=== PATIENT | female | born 1950 | race Caucasian/White ===

== ENCOUNTER → 2017-11-07 11:56 | Outpatient (CLI) | payer MEDICARE, SELFPAY ==
[2017-11-07 12:35] LABS: Absolute Lymphocyte Count 2.17 X10^3/ul (0.83-4.51); Absolute Neutrophil Count 4.1 X10^3/uL (2.0-7.7); Basophil# 0.02 X10^3/uL; Basophil% 0.3 % (0-1); Eosinophil# 0.14 X10^3/uL; Hematocrit 39.7 % (37-47); Hemoglobin 13.1 g/dl (12.0-15.0); Lymphocyte # 2.17 X10^3/ul (4.0); Lymphocyte % 31.1 % (19-41); Mean Corpuscular Hgb 31.3 pg (27.0-32.0); Mean Corpuscular Volume 94.7 fL (81-99); Mean Platelet Vol. 10.3 fl (6.2-12.0); Monocyte# 0.59 X10^3/uL; Monocyte% 8.5 % (0-10); Neutrophil # 4.05 X10^3/uL (2.7-7.7); Neutrophil % 58.1 % (47-70); Platelet Count 293 K/mm3 (150-450); RBC Distribution Width CV 13.8 % (11.6-14.6); RBC Distribution Width SD 46.1 fl (35.1-43.9); Red Blood Count 4.19 M/mm3 (4.2-5.4)
[2017-11-07 12:37] LABS: POSITIVE COUNT NO; POSITIVE DIFFERENTIAL NO; POSITIVE MORPHOLOGY NO
[2017-11-07 13:03] LABS: ALB/GLOB Ratio 1.1 RATIO (0.9-2.4); AST(SGOT) 26 U/L (15-37); Alanine Aminotransfer ALT/SGPT 32 U/L (13-56); Albumin, Serum 3.8 g/dL (3.2-5.0); Alkaline Phosphatase 87 U/L (45-117); Anion Gap 8 (5-15); BUN 17 mg/dL (7-18); BUN/Creat Ratio 22.3 RATIO (10-20); Chloride 106 mmol/L (98-107); Creatinine, Serum 0.76 mg/dL (0.55-1.02); EST Glomerular Filtration Rate 80 mL/min (>60); Est Glom Filt Rate - Afr Amer 97 mL/min (>60); Globulin 3.6 g/dL (2.2-4.2); Glucose 83 mg/dL (74-106); Potassium 4.2 mmol/L (3.5-5.1); Protein, Total 7.4 g/dL (6.4-8.2); Sodium Level 139 mmol/L (136-145)
[2017-11-07 13:10] LABS: Vitamin D,25 Hydroxy 65.2 ng/mL (29.95-100.01)
[2017-11-08 09:37] LABS: Hep C Antibodies <0.1 s/co ratio (0.0-0.9)
[2017-11-08 10:55] LABS: T3 Uptake 37 % (30-39); T4 Free Direct 1.23 ng/dL (0.76-1.46)
== END ==
PROVIDERS: Family Provider Family Medicine Geriatric Medicine; PCP Family Medicine Geriatric Medicine; Visit Provider Family Medicine Geriatric Medicine
DX: E03.9 Hypothyroidism, unspecified (principal); E55.9 Vitamin D deficiency, unspecified; N39.0 Urinary tract infection, site not specified; R53.83 Other fatigue; Z13.89 Encounter for screening for other disorder
CPT/HCPCS: 36415; 80053; 82306; 84439; 84443; 84479; 85025; 86803; 87086; 87088

== ENCOUNTER → 2017-12-28 10:36 | Outpatient (CLI) | payer MEDICARE, SELFPAY ==
--- NOTE | 2017-12-28 10:38 | BD_ITS ---
STUDY: DUAL ENERGY X-RAY ABSORPTIOMETRY / DXA REASON FOR EXAM: Female, 67 years old. The patient is postmenopausal. Loss of height. TECHNIQUE: Bone Mineral Density (BMD) measurements of lumbar spine and bilateral hips were obtained. COMPARISON: Comparison is made with prior study dated November 04, 2015. FINDINGS: Lumbar Spine (L1-L4): g/cm2 (0.898) / T-score (-2.2) / Z-score (-0.6) Findings are suggestive of osteopenia with a moderate fracture risk. Left Femur Total: g/cm2 (0.724) / T-score (-2.3) / Z-score (-0.8) Left Femoral Neck: g/cm2 (0.721) / T-score (-2.3) / Z-score (-0.6) Right Femur Total: g/cm2 (0.720) / T-score (-2.3) / Z-score (-0.9) Right Femoral Neck: g/cm2 (0.733) / T-score (-2.2) / Z-score (-0.5) The T-Scores on the most recent prior examination were: Lumbar Spine (L1-L4): There has been worsening of bone density since the previous examination. Left Femur Total: which represents a worsening of 6.3%. Right Femur Total: which represents a worsening of 7.2%. BD/Dexa Bone Density Study IMPRESSION: The patient is considered osteopenic as outlined below according to World Prabh[employer]ot Organization (WHO) criteria with a moderate fracture risk. There has been worsening of bone density since the previous examination. Reference Information: The T-score is the number of standard deviations above or below the standard which is normal for young adults at their peak bone mineral density. The World Health Organization (WHO) interprets the T-scores as follows: Above -1 Normal bone density Between -1 and -2.5 Osteopenia Equal to / or below -2.5 Osteoporosis As a practical clinical guideline, osteopenia may be graded as follows: Mild -1 through -1.5 Moderate -1.6 through -2.0 Severe -2.1 through -2.4 The Z-score is the number of standard deviations above or below age-matched controls. A Z-score of less than -1.5 would be considered abnormal. References: 1. NIH Osteoporosis and Related Bone Diseases http://www.osteo.org 2. International Society for Clinical Densitometry http://www.iscd.org 3. National Osteoporosis Foundation http://www.nof.org Electronically Signed: Giovanni Cerda MD at 8:47 EDT Tel [phone], Service support ,
--- NOTE | 2017-12-28 10:38 | BI_ITS ---
MAMMOGRAPHY - BILATERAL SCREENING REASON FOR EXAM: Female, 67 years old. Routine annual screening examination. PERTINENT HISTORY: Personal history of breast cancer. Prior left lumpectomy and radiation treatment. Prior right breast reduction surgery. TECHNIQUE: Digital bilateral breast anaid (3D mammographic acquisition) in the CC and MLO projections. 2-D mediolateral oblique (MLO) and craniocaudad (CC) views of both breasts were obtained. CAD: Full Field Digital Mammography with Computer Added Detection was performed. COMPARISON: Comparison is made with prior study dated November 26, 2016 and November 04, 2015. FINDINGS: Breast Composition: There are scattered areas of fibroglandular density. There are no dominant masses or suspicious calcifications. Once again, the patient is status post lumpectomy in the upper lateral portion of the left breast with resultant postoperative scarring and deformity of the breast. This is unchanged. Stable densely calcified nodule in the upper lateral portion of the right breast. No other significant abnormalities are identified. There has been no significant change since the prior study. BI/SCREENING MAMM (CAD), BILAT IMPRESSION: Stable bilateral screening mammogram. Yearly follow-up mammogram recommended. (A) ASSESSMENT CATEGORY: BIRADS Category 2: Benign. A letter regarding these results will be sent to the patient by the facility within 30 days. Approximately 10% of breast cancers are not detected by mammography. A normal mammogram should not delay biopsy of a clinically suspicious abnormality. [id number] Electronically Signed: Giovanni Cerda MD at 12:40 EDT Tel [phone], Service support ,
== END ==
PROVIDERS: Family Provider Family Medicine Geriatric Medicine; PCP Family Medicine Geriatric Medicine; Visit Provider Family Medicine Geriatric Medicine
DX: Z12.31 Encounter for screening mammogram for malignant neoplasm of breast (principal); Z78.0 Asymptomatic menopausal state; M85.80 Other specified disorders of bone density and structure, unspecified site
CPT/HCPCS: 77063; 77067; 77080

== ENCOUNTER → 2018-05-03 10:58 | Outpatient (CLI) | payer MEDICARE, SELFPAY ==
[2018-05-03 12:34] LABS: Absolute Lymphocyte Count 2.41 X10^3/ul (0.83-4.51); Absolute Neutrophil Count 2.9 X10^3/uL (2.0-7.7); Basophil# 0.01 X10^3/uL; Basophil% 0.2 % (0-1); Eosinophil# 0.08 X10^3/uL; Eosinophils% 1.4 % (0-5); Hemoglobin 13.3 g/dl (12.0-15.0); Lymphocyte # 2.41 X10^3/ul (4.0); Lymphocyte % 41.1 % (19-41); Mean Corp Hgb Conc 33.3 g/gl (32-36); Mean Corpuscular Hgb 31.7 pg (27.0-32.0); Mean Corpuscular Volume 95.2 fL (81-99); Mean Platelet Vol. 10.5 fl (6.2-12.0); Monocyte# 0.47 X10^3/uL; Neutrophil # 2.89 X10^3/uL (2.7-7.7); Neutrophil % 49.3 % (47-70); Platelet Count 259 K/mm3 (150-450); RBC Distribution Width CV 13.3 % (11.6-14.6); RBC Distribution Width SD 44.5 fl (35.1-43.9); White Blood Count 5.9 K/mm3 (4.4-11.0)
[2018-05-03 12:35] LABS: POSITIVE COUNT NO; POSITIVE DIFFERENTIAL NO; POSITIVE MORPHOLOGY NO
[2018-05-03 12:53] LABS: Vitamin D,25 Hydroxy 64.1 ng/mL (29.95-100.01)
[2018-05-03 13:00] LABS: ALB/GLOB Ratio 1.2 RATIO (0.9-2.4); AST(SGOT) 19 U/L (15-37); Alanine Aminotransfer ALT/SGPT 28 U/L (13-56); Alkaline Phosphatase 71 U/L (45-117); Anion Gap 6 (5-15); BUN 18 mg/dL (7-18); BUN/Creat Ratio 23.8 RATIO (10-20); Calcium,Total 9.2 mg/dL (8.5-10.1); Chloride 103 mmol/L (98-107); Creatinine, Serum 0.76 mg/dL (0.55-1.02); EST Glomerular Filtration Rate 81 mL/min (>60); Est Glom Filt Rate - Afr Amer 97 mL/min (>60); Globulin 3.4 g/dL (2.2-4.2); Glucose 78 mg/dL (74-106); Potassium 4.1 mmol/L (3.5-5.1); Protein, Total 7.4 g/dL (6.4-8.2); Sodium Level 136 mmol/L (136-145); Thyroid Stim Hormone (TSH) 0.45 uIU/mL (0.358-3.74)
== END ==
PROVIDERS: Family Provider Family Medicine Geriatric Medicine; PCP Family Medicine Geriatric Medicine; Visit Provider Family Medicine Geriatric Medicine
DX: E55.9 Vitamin D deficiency, unspecified (principal); R53.83 Other fatigue
CPT/HCPCS: 36415; 80053; 82306; 84443; 85025

== ENCOUNTER → 2018-11-08 09:00 | Outpatient (CLI) | payer MEDICARE, SELFPAY ==
[2018-09-11 09:21] VITALS: BMI 21.7
[2018-11-08 12:26] LABS: Absolute Lymphocyte Count 2.26 X10^3/ul (0.83-4.51); Absolute Neutrophil Count 2.8 X10^3/uL (2.0-7.7); Basophil# 0.02 X10^3/uL; Basophil% 0.4 % (0-1); Eosinophil# 0.14 X10^3/uL; Eosinophils% 2.5 % (0-5); Hematocrit 39.5 % (37-47); Hemoglobin 13.1 g/dl (12.0-15.0); Lymphocyte # 2.26 X10^3/ul (4.0); Lymphocyte % 39.6 % (19-41); Mean Corp Hgb Conc 33.2 g/gl (32-36); Mean Corpuscular Hgb 31.2 pg (27.0-32.0); Monocyte# 0.49 X10^3/uL; Monocyte% 8.6 % (0-10); Neutrophil # 2.78 X10^3/uL (2.7-7.7); Neutrophil % 48.7 % (47-70); Platelet Count 274 K/mm3 (150-450); RBC Distribution Width CV 13.6 % (11.6-14.6); RBC Distribution Width SD 45.6 fl (35.1-43.9); White Blood Count 5.7 K/mm3 (4.4-11.0)
[2018-11-08 12:29] LABS: POSITIVE COUNT NO; POSITIVE DIFFERENTIAL NO; POSITIVE MORPHOLOGY NO
[2018-11-08 12:45] LABS: Vitamin D,25 Hydroxy 56.3 ng/mL (29.95-100.01)
[2018-11-08 12:49] LABS: ALB/GLOB Ratio 1.3 RATIO (0.9-2.4); AST(SGOT) 24 U/L (15-37); Alanine Aminotransfer ALT/SGPT 34 U/L (13-56); Albumin, Serum 4.1 g/dL (3.2-5.0); Alkaline Phosphatase 66 U/L (45-117); Anion Gap 3 (5-15); BUN 19 mg/dL (7-18); BUN/Creat Ratio 25.1 RATIO (10-20); Calcium,Total 9.1 mg/dL (8.5-10.1); Chloride 102 mmol/L (98-107); Creatinine, Serum 0.76 mg/dL (0.55-1.02); EST Glomerular Filtration Rate 80 mL/min (>60); Est Glom Filt Rate - Afr Amer 97 mL/min (>60); Globulin 3.2 g/dL (2.2-4.2); Glucose 84 mg/dL (74-106); Protein, Total 7.3 g/dL (6.4-8.2); Sodium Level 133 mmol/L (136-145); Thyroid Stim Hormone (TSH) 0.78 uIU/mL (0.358-3.74)
== END ==
PROVIDERS: Family Provider Family Medicine Geriatric Medicine; PCP Family Medicine Geriatric Medicine; Visit Provider Family Medicine Geriatric Medicine
DX: E55.9 Vitamin D deficiency, unspecified (principal); R53.83 Other fatigue
CPT/HCPCS: 36415; 80053; 82306; 84443; 85025

== ENCOUNTER → 2019-01-10 | Outpatient (CLI) | payer MEDICARE, SELFPAY ==
[2018-09-11 09:21] VITALS: BMI 21.7
--- NOTE | 2019-01-10 13:34 | BI_ITS ---
MAMMOGRAPHY - BILATERAL SCREENING REASON FOR EXAM: Female, 68 years old. Routine annual screening examination. PERTINENT HISTORY: Personal history of breast cancer. Prior left lumpectomy with radiation therapy. Right breast reduction surgery. TECHNIQUE: Digital bilateral breast eileen (3D mammographic acquisition) in the CC and MLO projections. 2-D mediolateral oblique (MLO) and craniocaudad (CC) views of both breasts were obtained. CAD: Full Field Digital Mammography with Computer Added Detection was performed. COMPARISON: Comparison is made with prior study dated 08/30/2017 and November 26, 2016. FINDINGS: Breast Composition: There are scattered areas of fibroglandular density. There are no dominant masses or suspicious calcifications. The patient is status post lumpectomy in the upper lateral portion of the left breast with resultant postoperative scarring and deformity of the left breast. Stable dense calcified nodules in both upper outer quadrants. No other significant abnormalities are identified. There has been no significant change since the prior study. BI/SCREEN MAMM (CAD) W/EILEEN BILAT IMPRESSION: Stable bilateral screening mammogram. Yearly follow-up mammogram recommended. (A) ASSESSMENT CATEGORY: BIRADS Category 2: Benign. A letter regarding these results will be sent to the patient by the facility within 30 days. Approximately 10% of breast cancers are not detected by mammography. A normal mammogram should not delay biopsy of a clinically suspicious abnormality. [id number] Electronically Signed: Giovanni Cerda, at 14:38 EDT , Service support ,
== END | disposition home or self-care (01) ==
PROVIDERS: Family Provider Family Medicine Geriatric Medicine; PCP Family Medicine Geriatric Medicine; Referring Provider Family Medicine Geriatric Medicine; Visit Provider Family Medicine Geriatric Medicine
DX: Z12.31 Encounter for screening mammogram for malignant neoplasm of breast (principal)
CPT/HCPCS: 77063; 77067

== ENCOUNTER → 2019-05-14 | Outpatient (CLI) | payer MEDICARE, SELFPAY ==
[2018-09-11 09:21] VITALS: BMI 21.7
[2019-05-14 12:25] LABS: Absolute Lymphocyte Count 1.86 X10^3/uL (0.83-4.51); Absolute Neutrophil Count 3.4 X10^3/uL (2.0-7.7); Basophil# 0.04 X10^3/uL; Basophil% 0.7 % (0-1); Eosinophil# 0.13 X10^3/uL; Eosinophils% 2.2 % (0-5); Hematocrit 40.7 % (37-47); Hemoglobin 13.3 g/dL (12.0-15.0); Lymphocyte # 1.86 X10^3/ul (4.0); Lymphocyte % 31.2 % (19-41); Mean Corp Hgb Conc 32.7 g/dL (32-36); Mean Corpuscular Hgb 31.6 pg (27.0-32.0); Mean Corpuscular Volume 96.7 fL (81-99); Monocyte# 0.51 X10^3/uL; Monocyte% 8.6 % (0-10); NRBC Flagged by Analyzer 0 % (0-5); Neutrophil # 3.41 X10^3/uL (2.7-7.7); Neutrophil % 57.1 % (47-70); Platelet Count 257 K/mm3 (150-450); RBC Distribution Width SD 45.8 fl (35.1-43.9); Red Blood Count 4.21 M/mm3 (4.2-5.4)
[2019-05-14 12:46] LABS: Vitamin D,25 Hydroxy 70.2 ng/mL (29.95-100.01)
[2019-05-14 12:55] LABS: ALB/GLOB Ratio 1.2 RATIO (0.9-2.4); AST(SGOT) 24 U/L (15-37); Alanine Aminotransfer ALT/SGPT 38 U/L (13-56); Albumin, Serum 3.9 g/dL (3.2-5.0); Alkaline Phosphatase 72 U/L (45-117); Anion Gap 9 (5-15); BUN 19 mg/dL (7-18); BUN/Creat Ratio 22.2 RATIO (10-20); Calcium,Total 9.3 mg/dL (8.5-10.1); Chloride 106 mmol/L (98-107); Creatinine, Serum 0.85 mg/dL (0.55-1.02); EST Glomerular Filtration Rate 70 mL/min (>60); Est Glom Filt Rate - Afr Amer 84 mL/min (>60); Globulin 3.3 g/dL (2.2-4.2); Glucose 91 mg/dL (74-106); Potassium 4.2 mmol/L (3.5-5.1); Protein, Total 7.2 g/dL (6.4-8.2); Sodium Level 139 mmol/L (136-145); Thyroid Stim Hormone (TSH) 0.47 uIU/mL (0.358-3.74)
== END | disposition home or self-care (01) ==
LOC: POLAB3 09:09
PROVIDERS: Family Provider Family Medicine Geriatric Medicine; PCP Family Medicine Geriatric Medicine; Visit Provider Family Medicine Geriatric Medicine
DX: E55.9 Vitamin D deficiency, unspecified (principal); R53.83 Other fatigue
CPT/HCPCS: 36415; 80053; 82306; 84443; 85025

== ENCOUNTER → 2019-11-19 | Outpatient (CLI) | payer MEDICARE, SELFPAY ==
[2019-09-14 09:35] VITALS: BMI 22.1
[2019-11-19 12:56] LABS: Absolute Lymphocyte Count 2.27 X10^3/uL (0.83-4.51); Absolute Neutrophil Count 3.8 X10^3/uL (2.0-7.7); Basophil# 0.05 X10^3/uL; Basophil% 0.7 % (0-1); Eosinophil# 0.19 X10^3/uL; Eosinophils% 2.8 % (0-5); Hematocrit 40.7 % (37-47); Hemoglobin 13.5 g/dL (12.0-15.0); Lymphocyte # 2.27 X10^3/ul (4.0); Lymphocyte % 33.1 % (19-41); Mean Corp Hgb Conc 33.2 g/dL (32-36); Mean Corpuscular Hgb 32.1 pg (27.0-32.0); Mean Corpuscular Volume 96.9 fL (81-99); Mean Platelet Vol. 9.4 fl (6.2-12.0); Monocyte# 0.49 X10^3/uL; Monocyte% 7.1 % (0-10); NRBC Flagged by Analyzer 0 % (0-5); Neutrophil # 3.84 X10^3/uL (2.7-7.7); Platelet Count 297 K/mm3 (150-450); RBC Distribution Width SD 46.1 fl (35.1-43.9); White Blood Count 6.9 K/mm3 (4.4-11.0)
[2019-11-19 13:05] LABS: Vitamin D,25 Hydroxy 77.6 ng/mL
[2019-11-19 13:18] LABS: ALB/GLOB Ratio 1.2 RATIO (0.9-2.4); AST(SGOT) 23 U/L (15-37); Alanine Aminotransfer ALT/SGPT 33 U/L (13-56); Alkaline Phosphatase 61 U/L (45-117); Anion Gap 6 (5-15); BUN 17 mg/dL (7-18); BUN/Creat Ratio 20.3 RATIO (10-20); Calcium,Total 9.4 mg/dL (8.5-10.1); Chloride 103 mmol/L (98-107); Creatinine, Serum 0.84 mg/dL (0.55-1.02); EST Glomerular Filtration Rate 71 mL/min (>60); Est Glom Filt Rate - Afr Amer 86 mL/min (>60); Globulin 3.3 g/dL (2.2-4.2); Glucose 88 mg/dL (74-106); Potassium 3.9 mmol/L (3.5-5.1); Protein, Total 7.3 g/dL (6.4-8.2); Sodium Level 137 mmol/L (136-145); Thyroid Stim Hormone (TSH) 0.62 uIU/mL (0.358-3.74)
== END | disposition home or self-care (01) ==
LOC: POLAB3 11:29
PROVIDERS: PCP Family Medicine Geriatric Medicine; Visit Provider Family Medicine Geriatric Medicine
DX: E55.9 Vitamin D deficiency, unspecified (principal); R53.83 Other fatigue
CPT/HCPCS: 36415; 80053; 82306; 84443; 85025

== ENCOUNTER → 2020-05-26 09:05 | Outpatient (CLI) | payer MEDICARE, SELFPAY ==
[2019-09-14 09:35] VITALS: BMI 22.1
[2020-05-26 12:57] LABS: Absolute Lymphocyte Count 2.41 X10^3/uL (0.83-4.51); Absolute Neutrophil Count 2.5 X10^3/uL (2.0-7.7); Basophil# 0.02 X10^3/uL; Basophil% 0.4 % (0-1); Eosinophil# 0.16 X10^3/uL; Eosinophils% 2.8 % (0-5); Hematocrit 42.9 % (37-47); Hemoglobin 13.7 g/dL (12.0-15.0); Lymphocyte # 2.41 X10^3/ul (4.0); Lymphocyte % 42.8 % (19-41); Mean Corp Hgb Conc 31.9 g/dL (32-36); Mean Corpuscular Hgb 31.4 pg (27.0-32.0); Mean Corpuscular Volume 98.4 fL (81-99); Mean Platelet Vol. 9.6 fl (6.2-12.0); Monocyte% 8.9 % (0-10); NRBC Flagged by Analyzer 0 % (0-5); Neutrophil # 2.53 X10^3/uL (2.7-7.7); Neutrophil % 44.9 % (47-70); Platelet Count 317 K/mm3 (150-450); RBC Distribution Width CV 13.2 % (11.6-14.6); RBC Distribution Width SD 48.3 fl (35.1-43.9); Red Blood Count 4.36 M/mm3 (4.2-5.4); White Blood Count 5.6 K/mm3 (4.4-11.0)
[2020-05-26 13:23] LABS: Vitamin D,25 Hydroxy 80.8 ng/mL
[2020-05-26 13:44] LABS: ALB/GLOB Ratio 1.3 RATIO (0.9-2.4); AST(SGOT) 18 U/L (15-37); Alanine Aminotransfer ALT/SGPT 32 U/L (13-56); Albumin, Serum 4.3 g/dL (3.2-5.0); Alkaline Phosphatase 64 U/L (45-117); Anion Gap 5 (5-15); BUN 24 mg/dL (7-18); BUN/Creat Ratio 26.5 RATIO (10-20); Calcium,Total 9.9 mg/dL (8.5-10.1); Chloride 104 mmol/L (98-107); Creatinine, Serum 0.91 mg/dL (0.55-1.02); EST Glomerular Filtration Rate 65 mL/min (>60); Est Glom Filt Rate - Afr Amer 79 mL/min (>60); Globulin 3.3 g/dL (2.2-4.2); Glucose 88 mg/dL (74-106); Potassium 4.1 mmol/L (3.5-5.1); Protein, Total 7.6 g/dL (6.4-8.2); Sodium Level 137 mmol/L (136-145); Thyroid Stim Hormone (TSH) 0.68 uIU/mL (0.358-3.74)
== END ==
PROVIDERS: PCP Family Medicine Geriatric Medicine; Visit Provider Family Medicine Geriatric Medicine
DX: R53.83 Other fatigue (principal); E55.9 Vitamin D deficiency, unspecified
CPT/HCPCS: 36415; 80053; 82306; 84443; 85025

== ENCOUNTER → 2020-11-24 | Outpatient (CLI) | payer MEDICARE, SELFPAY ==
[2020-08-15 09:35] VITALS: BMI 23.4
[2020-11-24 12:59] LABS: Bacteria 0 SEEN /hpf (None Seen); Mucous, Urine 0 SEEN /hpf (<or=2+)
[2020-11-24 13:17] LABS: Color, Urine Yellow (Yellow); Glucose, Dipstick Normal (Normal); Ketone-Dipstick Negative (Negative); Leukocyte Esterase-Dipstick 500 /ul (Negative); Nitrite-Dipstick Negative (Negative); Occult Blood-Urine 25 /ul (Negative); Protein-Dipstick Negative (Negative); Urine Bilirubin Dipstick Negative (Negative); Urine Clarity Sl. Cloudy (Clear); Urine Urobilinogen Normal (Normal)
[2020-11-24 13:23] LABS: Red Blood Cells-Urine 0-5 SEEN /hpf (0-5); Squamous Epithelial Cells - UA 0-5 SEEN /hpf (5-10); White Blood Cells 25-50 SEEN /hpf (0-5)
== END | disposition home or self-care (01) ==
LOC: LABSPEC 12:20
PROVIDERS: PCP Family Medicine Geriatric Medicine; Referring Provider Student in an Organized Health Care Education/Training Program; Visit Provider Student in an Organized Health Care Education/Training Program
DX: R30.0 Dysuria (principal)
CPT/HCPCS: 81001; 87086

== ENCOUNTER → 2020-11-26 09:42 | Outpatient (CLI) | payer MEDICARE, SELFPAY ==
[2020-08-15 09:35] VITALS: BMI 23.4
[2020-11-26 12:16] LABS: Absolute Lymphocyte Count 1.71 X10^3/uL (0.83-4.51); Absolute Neutrophil Count 2.6 X10^3/uL (2.0-7.7); Basophil# 0.03 X10^3/uL; Basophil% 0.6 % (0-1); Eosinophil# 0.16 X10^3/uL; Eosinophils% 3.3 % (0-5); Hemoglobin 12.8 g/dL (12.0-15.0); Lymphocyte # 1.71 X10^3/ul (0.83-4.51); Lymphocyte % 34.8 % (19-41); Mean Corp Hgb Conc 32.8 g/dL (32-36); Mean Corpuscular Hgb 31.4 pg (27.0-32.0); Mean Corpuscular Volume 95.8 fL (81-99); Mean Platelet Vol. 9.8 fl (6.2-12.0); Monocyte# 0.38 X10^3/uL; Monocyte% 7.7 % (0-10); NRBC Flagged by Analyzer 0 % (0-5); Neutrophil # 2.63 X10^3/uL (2.7-7.7); Neutrophil % 53.4 % (47-70); Platelet Count 268 K/mm3 (150-450); RBC Distribution Width CV 13.5 % (11.6-14.6); RBC Distribution Width SD 47.8 fl (35.1-43.9); Red Blood Count 4.07 M/mm3 (4.2-5.4); White Blood Count 4.9 K/mm3 (4.4-11.0)
[2020-11-26 12:39] LABS: ALB/GLOB Ratio 1.2 RATIO (0.9-2.4); AST(SGOT) 27 U/L (15-37); Alanine Aminotransfer ALT/SGPT 39 U/L (13-56); Albumin, Serum 3.7 g/dL (3.2-5.0); Alkaline Phosphatase 53 U/L (45-117); Anion Gap 7 (5-15); BUN 18 mg/dL (7-18); BUN/Creat Ratio 23.7 RATIO (10-20); Calcium,Total 9.2 mg/dL (8.5-10.1); Chloride 105 mmol/L (98-107); Creatinine, Serum 0.76 mg/dL (0.55-1.02); EST Glomerular Filtration Rate 79 mL/min (>60); Est Glom Filt Rate - Afr Amer 96 mL/min (>60); Globulin 3.1 g/dL (2.2-4.2); Glucose 83 mg/dL (74-106); Potassium 4.1 mmol/L (3.5-5.1); Protein, Total 6.8 g/dL (6.4-8.2); Sodium Level 139 mmol/L (136-145); Thyroid Stim Hormone (TSH) 0.21 uIU/mL (0.358-3.74)
[2020-11-27 12:08] LABS: Vitamin D,25 Hydroxy 65.3 ng/mL
== END ==
PROVIDERS: PCP Family Medicine Geriatric Medicine; Visit Provider Family Medicine Geriatric Medicine
DX: E55.9 Vitamin D deficiency, unspecified (principal); R53.83 Other fatigue
CPT/HCPCS: 36415; 80053; 82306; 84443; 85025

== ENCOUNTER → 2020-12-11 14:50 | Outpatient (CLI) | payer MEDICARE, SELFPAY ==
[2020-08-15 09:35] VITALS: BMI 23.4
--- NOTE | 2020-12-11 14:52 | BI_ITS ---
MAMMOGRAPHY - BILATERAL SCREENING REASON FOR EXAM: Female, 70 years old. Routine annual screening examination. PERTINENT HISTORY: Personal history of breast cancer. Prior left lumpectomy with radiation treatment. TECHNIQUE: Digital bilateral breast eileen (3D mammographic acquisition) in the CC and MLO projections. 2-D mediolateral oblique (MLO) and craniocaudad (CC) views of both breasts were obtained. CAD: Full Field Digital Mammography with Computer Added Detection was performed. COMPARISON: Comparison is made with prior examination dated 01/10/2019 and 12/28/2017. FINDINGS: Breast Composition: There are scattered areas of fibroglandular density. There are no dominant masses or suspicious calcifications. The patient is status post lumpectomy in the upper the lateral portion of the left breast with resultant breast deformity and scarring. Stable bilateral macrocalcifications. No other significant abnormalities are identified. There has been no significant change since the prior study. BI/SCRN MAMM (CAD)W/EILEEN BILAT IMPRESSION: Stable bilateral screening mammogram. Yearly follow-up mammogram recommended. (A) ASSESSMENT CATEGORY: BIRADS Category 2: Benign. A letter regarding these results will be sent to the patient by the facility within 30 days. Approximately 10% of breast cancers are not detected by mammography. A normal mammogram should not delay biopsy of a clinically suspicious abnormality. [id number] Electronically Signed: Giovanni Cerda MD at 15:41 EDT , Service support ,
--- NOTE | 2020-12-11 14:55 | BD_ITS ---
STUDY: DUAL ENERGY X-RAY ABSORPTIOMETRY / DXA REASON FOR EXAM: Female, 70 years old. [id number]. The patient is postmenopausal. TECHNIQUE: Bone Mineral Density (BMD) measurements of lumbar spine and bilateral hips were obtained. COMPARISON: Comparison is made with prior study dated 12/28/2017. FINDINGS: Lumbar Spine (L1-L4): g/cm2 (0.837) / T-score (-2.7) / Z-score (-1.0) Findings are suggestive of osteoporosis with a high fracture risk. Left Femur Total: g/cm2 (0.661) / T-score (-2.8) / Z-score (-1.2) Left Femoral Neck: g/cm2 (0.670) / T-score (-2.6) / Z-score (-0.9) Right Femur Total: g/cm2 (0.662) / T-score (-2.7) / Z-score (-1.2) Right Femoral Neck: g/cm2 (0.691) / T-score (-2.5) / Z-score (-0.7) The T-Scores on the most recent prior examination were: Lumbar Spine (L1-L4): There has been worsening of bone density since the previous examination. Left Femur Total: which represents a worsening of 8.7%. Right Femur Total: which represents a worsening of 8.1%. BD/Dexa Bone Density Study IMPRESSION: The patient is considered osteoporotic as outlined below according to World Prabh[employer]ot Organization (WHO) criteria with a high fracture risk. There has been worsening of bone density since the previous examination. Reference Information: The T-score is the number of standard deviations above or below the standard which is normal for young adults at their peak bone mineral density. The World Health Organization (WHO) interprets the T-scores as follows: Above -1 Normal bone density Between -1 and -2.5 Osteopenia Equal to / or below -2.5 Osteoporosis As a practical clinical guideline, osteopenia may be graded as follows: Mild -1 through -1.5 Moderate -1.6 through -2.0 Severe -2.1 through -2.4 The Z-score is the number of standard deviations above or below age-matched controls. A Z-score of less than -1.5 would be considered abnormal. References: 1. NIH Osteoporosis and Related Bone Diseases www osteo.org 2. International Society for Clinical Densitometry www iscd.org 3. National Osteoporosis Foundation www nof.org Electronically Signed: Giovanni Cerda MD at 15:51 EDT , Service support ,
== END ==
PROVIDERS: PCP Family Medicine Geriatric Medicine; Referring Provider Student in an Organized Health Care Education/Training Program; Visit Provider Student in an Organized Health Care Education/Training Program
DX: Z78.0 Asymptomatic menopausal state (principal); Z12.31 Encounter for screening mammogram for malignant neoplasm of breast
CPT/HCPCS: 77063; 77067; 77080

== ENCOUNTER → 2021-01-19 09:14 | Outpatient (CLI) | payer MEDICARE, SELFPAY ==
[2020-08-15 09:35] VITALS: BMI 23.4
[2021-01-19 13:14] LABS: Thyroid Stim Hormone (TSH) 0.91 uIU/mL (0.358-3.74)
== END ==
PROVIDERS: PCP Family Medicine Geriatric Medicine; Visit Provider Family Medicine Geriatric Medicine
DX: E03.9 Hypothyroidism, unspecified (principal)
CPT/HCPCS: 36415; 84443

== ENCOUNTER → 2021-05-06 08:27 | Outpatient (CLI) | payer MEDICARE, SELFPAY ==
[2021-05-06 08:36] VITALS: BP 113/50; PULSE 73; RESP 16; TEMP 36.9; O2SAT 93; BMI 22.7
[2021-05-06] MEDS: DENOSUMAB 60 MG/ML SC (08:43)
== END ==
PROVIDERS: PCP Family Medicine Geriatric Medicine; Referring Provider Internal Medicine Endocrinology, Diabetes & Metabolism; Visit Provider Internal Medicine Endocrinology, Diabetes & Metabolism
DX: M81.0 Age-related osteoporosis without current pathological fracture (principal)
CPT/HCPCS: 96372; J0897

== ENCOUNTER → 2021-06-04 09:05 | Outpatient (CLI) | payer MEDICARE, SELFPAY ==
[2021-06-04 12:39] LABS: Absolute Lymphocyte Count 2.28 X10^3/uL (0.83-4.51); Basophil# 0.04 X10^3/uL; Basophil% 0.6 % (0-1); Eosinophil# 0.14 X10^3/uL; Hemoglobin 13.9 g/dL (12.0-15.0); Lymphocyte # 2.28 X10^3/ul (0.83-4.51); Lymphocyte % 32.5 % (19-41); Mean Corp Hgb Conc 33.9 g/dL (32-36); Mean Corpuscular Hgb 31.7 pg (27.0-32.0); Mean Corpuscular Volume 93.6 fL (81-99); Mean Platelet Vol. 9.6 fl (6.2-12.0); Monocyte# 0.51 X10^3/uL; Monocyte% 7.3 % (0-10); NRBC Flagged by Analyzer 0 % (0-5); Neutrophil # 4.03 X10^3/uL (2.7-7.7); Neutrophil % 57.3 % (47-70); Platelet Count 320 K/mm3 (150-450); RBC Distribution Width CV 12.9 % (11.6-14.6); RBC Distribution Width SD 44.7 fl (35.1-43.9); Red Blood Count 4.38 M/mm3 (4.2-5.4)
[2021-06-04 12:58] LABS: Vitamin D,25 Hydroxy 59.4 ng/mL
[2021-06-04 13:04] LABS: ALB/GLOB Ratio 1.1 RATIO (0.9-2.4); AST(SGOT) 30 U/L (15-37); Alanine Aminotransfer ALT/SGPT 48 U/L (13-56); Albumin, Serum 3.9 g/dL (3.2-5.0); Alkaline Phosphatase 64 U/L (45-117); Anion Gap 5 (5-15); BUN 16 mg/dL (7-18); BUN/Creat Ratio 18.8 RATIO (10-20); Calcium,Total 8.9 mg/dL (8.5-10.1); Chloride 104 mmol/L (98-107); Creatinine, Serum 0.85 mg/dL (0.55-1.02); EST Glomerular Filtration Rate 70 mL/min (>60); Est Glom Filt Rate - Afr Amer 84 mL/min (>60); Globulin 3.6 g/dL (2.2-4.2); Glucose 93 mg/dL (74-106); Potassium 4.3 mmol/L (3.5-5.1); Protein, Total 7.5 g/dL (6.4-8.2); Sodium Level 135 mmol/L (136-145); Thyroid Stim Hormone (TSH) 1.39 uIU/mL (0.358-3.74)
== END ==
PROVIDERS: PCP Family Medicine Geriatric Medicine; Visit Provider Family Medicine Geriatric Medicine
DX: E55.9 Vitamin D deficiency, unspecified (principal); R53.83 Other fatigue
CPT/HCPCS: 36415; 80053; 82306; 84443; 85025

== ENCOUNTER 2021-08-20 12:54 | Outpatient (CLI) | payer MEDICARE, SELFPAY ==
--- NOTE | 2021-08-20 13:00 | CDU_ITS ---
Reason For Study: Carotid artery bruit Rt. Velocities/BP Lt. Velocities/BP Prox CCA 94.3/26.5 cm/sec. Prox CCA 97.4/24.9 cm/sec. Mid CCA 111.2/26.5 cm/sec. Mid CCA 108.3/24.3 cm/sec. Dist CCA 82.6/23.9 cm/sec. Dist CCA 104.7/29.8 cm/sec. Prox ICA 90/24.3 cm/sec. Prox ICA 101/24.3 cm/sec. Mid ICA 112/37.1 cm/sec. Mid ICA 85.1/28.6 cm/sec. Dist ICA 102.8/37.1 cm/sec. Dist ICA 91.2/31.1 cm/sec. Rt. ICA/CCA = 1.19. Lt. ICA/CCA = 0.96. Prox ECA 87.8/12.1 cm/sec. Prox ECA 88.2/15.2 cm/sec. Rt. Vert. 45.8/12.6 cm/sec. Lt. Vert. 50.7/12.6 cm/sec. Right Extracranial There is homogeneous, smooth atherosclerotic plaque noted in the right common carotid artery. There is intimal thickening but no significant atherosclerotic plaque noted in the right internal carotid artery. There is intimal thickening but no significant atherosclerotic plaque noted in the right external carotid artery. Antegrade flow is noted in the right vertebral artery. Left Extracranial There is homogeneous, smooth atherosclerotic plaque noted in the left common carotid artery. There is intimal thickening but no significant atherosclerotic plaque noted in the left internal carotid artery. There is intimal thickening but no significant atherosclerotic plaque noted in the left external carotid artery. Antegrade flow is noted in the left vertebral artery. Procedure Carotid Duplex 45037. This is a Carotid Duplex examination using B-mode, color flow and specral Doppler. Exam performed in department. VL/Carotid Duplex Ultrasound Interpretation Summary Mild (<50%) stenosis right extracranial internal carotid. Mild (<50%) stenosis left extracranial internal carotid. Flow within the vertebral arteries is antegrade bilaterally. Ordering Physician: Jaylan Mace Referring Physician: Rashel Lopez Chi Performed By: Arline Cisneros RVT
== END 2021-08-20 23:59 | disposition home or self-care (01) ==
PROVIDERS: PCP Family Medicine Geriatric Medicine; Referring Provider Internal Medicine Cardiovascular Disease; Visit Provider Internal Medicine Cardiovascular Disease
DX: R09.89 Other specified symptoms and signs involving the circulatory and respiratory systems (principal)
CPT/HCPCS: 93880

== ENCOUNTER → 2021-11-04 | Outpatient (CLI) | payer MEDICARE, SELFPAY ==
[2021-11-04 08:37] VITALS: BP 97/58; PULSE 70; RESP 16; TEMP 36.2; O2SAT 96
[2021-11-04] MEDS: DENOSUMAB 60 MG/ML SC (08:49)
== END | disposition home or self-care (01) ==
LOC: MEDOUTP 08:30
PROVIDERS: PCP Family Medicine Geriatric Medicine; Referring Provider Internal Medicine Endocrinology, Diabetes & Metabolism; Visit Provider Internal Medicine Endocrinology, Diabetes & Metabolism
DX: M81.0 Age-related osteoporosis without current pathological fracture (principal)
CPT/HCPCS: 96372; J0897

== ENCOUNTER → 2021-12-03 | Outpatient (CLI) | payer MEDICARE, SELFPAY ==
[2021-12-03 12:24] LABS: Absolute Lymphocyte Count 2.04 X10^3/uL (0.83-4.51); Absolute Neutrophil Count 4.9 X10^3/uL (2.0-7.7); Basophil# 0.03 X10^3/uL; Basophil% 0.4 % (0-1); Eosinophil# 0.17 X10^3/uL; Eosinophils% 2.2 % (0-5); Hematocrit 40.3 % (37-47); Hemoglobin 13.3 g/dL (12.0-15.0); Lymphocyte # 2.04 X10^3/ul (0.83-4.51); Lymphocyte % 26.7 % (19-41); Mean Corpuscular Hgb 32.4 pg (27.0-32.0); Mean Corpuscular Volume 98.3 fL (81-99); Mean Platelet Vol. 10.2 fl (6.2-12.0); Monocyte# 0.49 X10^3/uL; Monocyte% 6.4 % (0-10); NRBC Flagged by Analyzer 0 % (0-5); Neutrophil # 4.91 X10^3/uL (2.7-7.7); Neutrophil % 64.2 % (47-70); Platelet Count 257 K/mm3 (150-450); RBC Distribution Width CV 13.9 % (11.6-14.6); RBC Distribution Width SD 50.6 fl (35.1-43.9); White Blood Count 7.7 K/mm3 (4.4-11.0)
[2021-12-03 12:54] LABS: ALB/GLOB Ratio 1.1 RATIO (0.9-2.4); AST(SGOT) 21 U/L (15-37); Alanine Aminotransfer ALT/SGPT 37 U/L (13-56); Albumin, Serum 3.7 g/dL (3.2-5.0); Alkaline Phosphatase 56 U/L (45-117); Anion Gap 6 (5-15); BUN 15 mg/dL (7-18); BUN/Creat Ratio 17.1 RATIO (10-20); Calcium,Total 9.4 mg/dL (8.5-10.1); Chloride 102 mmol/L (98-107); Creatinine, Serum 0.88 mg/dL (0.55-1.02); EST Glomerular Filtration Rate 67 mL/min (>60); Est Glom Filt Rate - Afr Amer 81 mL/min (>60); Globulin 3.5 g/dL (2.2-4.2); Glucose 92 mg/dL (74-106); Potassium 4.2 mmol/L (3.5-5.1); Protein, Total 7.2 g/dL (6.4-8.2); Sodium Level 136 mmol/L (136-145); Thyroid Stim Hormone (TSH) 1.32 uIU/mL (0.358-3.74)
[2021-12-03 13:25] LABS: Vitamin D,25 Hydroxy 64.3 ng/mL
== END | disposition home or self-care (01) ==
LOC: POLAB3 09:08
PROVIDERS: PCP Family Medicine Geriatric Medicine; Visit Provider Family Medicine Geriatric Medicine
DX: E55.9 Vitamin D deficiency, unspecified (principal); R53.83 Other fatigue
CPT/HCPCS: 36415; 80053; 82306; 84443; 85025

== ENCOUNTER → 2021-12-03 | Outpatient (CLI) | payer MEDICARE, SELFPAY | END | disposition home or self-care (01) | PROVIDERS: PCP Family Medicine Geriatric Medicine; Referring Provider Family Medicine Geriatric Medicine; Visit Provider Family Medicine Geriatric Medicine | DX: R68.83 Chills (without fever) (principal); E55.9 Vitamin D deficiency, unspecified; R53.83 Other fatigue; Z20.822 Contact with and (suspected) exposure to COVID-19 | CPT/HCPCS: 36415; 80053; 82306; 84443; 85025; 87635; 87804; 87807; U0003; U0005 ==

== ENCOUNTER → 2021-12-14 | Outpatient (CLI) | payer MEDICARE, SELFPAY ==
--- NOTE | 2021-12-14 12:35 | BI_ITS ---
MAMMOGRAPHY - BILATERAL SCREENING REASON FOR EXAM: Female, 71 years old. Routine annual screening examination. PERTINENT HISTORY: Personal history of breast cancer. Prior left lumpectomy with radiation treatment. Remote left stereotactic breast biopsy. Status post right breast reduction. TECHNIQUE: Digital bilateral breast eileen (3D mammographic acquisition) in the CC and MLO projections. 2-D mediolateral oblique (MLO) and craniocaudad (CC) views of both breasts were obtained. CAD: Full Field Digital Mammography with Computer Added Detection was performed. COMPARISON: Comparison is made with prior study dated 12/11/2020 and 01/10/2019. FINDINGS: Breast Composition: There are scattered areas of fibroglandular density. There are no dominant masses or suspicious calcifications. Status post left lumpectomy with the resultant breast deformity and scarring and skin thickening. Stable densely calcified nodules in the upper lateral aspect of both breasts. No other significant abnormalities are identified. There has been no significant change since the prior study. BI/SCRN MAMM (CAD)W/EILEEN BILAT IMPRESSION: Stable bilateral screening mammogram. Yearly follow-up mammogram recommended. (A) ASSESSMENT CATEGORY: BIRADS Category 2: Benign. A letter regarding these results will be sent to the patient by the facility within 30 days. Approximately 10% of breast cancers are not detected by mammography. A normal mammogram should not delay biopsy of a clinically suspicious abnormality. [id number] Electronically Signed: Giovanni Cerda MD at 13:28 EDT ,
== END | disposition home or self-care (01) ==
LOC: OPBI 12:34
PROVIDERS: PCP Family Medicine Geriatric Medicine; Visit Provider Family Medicine Geriatric Medicine
DX: Z12.31 Encounter for screening mammogram for malignant neoplasm of breast (principal); Z85.3 Personal history of malignant neoplasm of breast
CPT/HCPCS: 77063; 77067

== ENCOUNTER → 2022-05-05 | Outpatient (CLI) | payer MEDICARE, SELFPAY ==
[2022-05-05 12:28] VITALS: BP 103/57; PULSE 79
[2022-05-05] MEDS: DENOSUMAB 60 MG/ML SC (12:36)
== END | disposition home or self-care (01) ==
LOC: MEDOUTP 12:18
PROVIDERS: PCP Family Medicine Geriatric Medicine; Referring Provider Internal Medicine Endocrinology, Diabetes & Metabolism; Visit Provider Internal Medicine Endocrinology, Diabetes & Metabolism
DX: M81.0 Age-related osteoporosis without current pathological fracture (principal)
CPT/HCPCS: 96372; J0897

== ENCOUNTER → 2022-06-03 | Outpatient (CLI) | payer MEDICARE, SELFPAY ==
[2022-06-03 12:36] LABS: Absolute Lymphocyte Count 2.06 X10^3/uL (0.83-4.51); Absolute Neutrophil Count 3.5 X10^3/uL (2.0-7.7); Basophil# 0.02 X10^3/uL; Basophil% 0.3 % (0-1); Eosinophil# 0.12 X10^3/uL; Hematocrit 38.9 % (37-47); Hemoglobin 12.7 g/dL (12.0-15.0); Lymphocyte # 2.06 X10^3/ul (0.83-4.51); Lymphocyte % 33.7 % (19-41); Mean Corp Hgb Conc 32.6 g/dL (32-36); Mean Corpuscular Hgb 31.8 pg (27.0-32.0); Mean Corpuscular Volume 97.5 fL (81-99); Mean Platelet Vol. 9.9 fl (6.2-12.0); Monocyte# 0.43 X10^3/uL; NRBC Flagged by Analyzer 0 % (0-5); Neutrophil # 3.47 X10^3/uL (2.7-7.7); Neutrophil % 56.7 % (47-70); Platelet Count 252 K/mm3 (150-450); RBC Distribution Width CV 13.9 % (11.6-14.6); RBC Distribution Width SD 49.7 fl (35.1-43.9); Red Blood Count 3.99 M/mm3 (4.2-5.4); White Blood Count 6.1 K/mm3 (4.4-11.0)
[2022-06-03 12:53] LABS: Vitamin D,25 Hydroxy 51.1 ng/mL
[2022-06-03 13:18] LABS: ALB/GLOB Ratio 1.1 RATIO (0.9-2.4); AST(SGOT) 25 U/L (15-37); Alanine Aminotransfer ALT/SGPT 48 U/L (13-56); Albumin, Serum 3.6 g/dL (3.2-5.0); Alkaline Phosphatase 41 U/L (45-117); Anion Gap 7 (5-15); BUN 17 mg/dL (7-18); BUN/Creat Ratio 23.2 RATIO (10-20); Calcium,Total 8.8 mg/dL (8.5-10.1); Chloride 105 mmol/L (98-107); Creatinine, Serum 0.73 mg/dL (0.55-1.02); EST Glomerular Filtration Rate 83 mL/min (>60); Est Glom Filt Rate - Afr Amer 100 mL/min (>60); Globulin 3.2 g/dL (2.2-4.2); Glucose 83 mg/dL (74-106); Potassium 4.1 mmol/L (3.5-5.1); Protein, Total 6.8 g/dL (6.4-8.2); Sodium Level 137 mmol/L (136-145); Thyroid Stim Hormone (TSH) 0.67 uIU/mL (0.358-3.74)
== END | disposition home or self-care (01) ==
LOC: POLAB3 10:38
PROVIDERS: PCP Family Medicine Geriatric Medicine; Visit Provider Family Medicine Geriatric Medicine
DX: R53.83 Other fatigue (principal); E55.9 Vitamin D deficiency, unspecified
CPT/HCPCS: 36415; 80053; 82306; 84443; 85025

== ENCOUNTER 2022-11-05 12:24 | Outpatient (CLI) | payer MEDICARE, SELFPAY ==
[2022-11-05 12:34] VITALS: BP 103/50; PULSE 69; RESP 16; TEMP 35.7; O2SAT 96; BMI 21.6
[2022-11-05] MEDS: DENOSUMAB 60 MG/ML SC (12:36)
== END 2022-11-05 12:25 | disposition home or self-care (01) ==
LOC: MEDOUTP 12:25
PROVIDERS: PCP Family Medicine Geriatric Medicine; Referring Provider Internal Medicine Endocrinology, Diabetes & Metabolism; Visit Provider Internal Medicine Endocrinology, Diabetes & Metabolism
DX: M81.0 Age-related osteoporosis without current pathological fracture (principal)
CPT/HCPCS: 96372; J0897

== ENCOUNTER → 2022-12-06 | Outpatient (CLI) | payer MEDICARE, SELFPAY ==
[2022-12-06 12:35] LABS: Absolute Lymphocyte Count 1.39 X10^3/uL (0.83-4.51); Absolute Neutrophil Count 3.3 X10^3/uL (2.0-7.7); Basophil# 0.02 X10^3/uL; Basophil% 0.4 % (0-1); Eosinophil# 0.05 X10^3/uL; Hematocrit 41.4 % (37-47); Hemoglobin 13.6 g/dL (12.0-15.0); Lymphocyte # 1.39 X10^3/ul (0.83-4.51); Lymphocyte % 27.1 % (19-41); Mean Corp Hgb Conc 32.9 g/dL (32-36); Mean Corpuscular Hgb 33.3 pg (27.0-32.0); Mean Corpuscular Volume 101.2 fL (81-99); Mean Platelet Vol. 9.2 fl (6.2-12.0); Monocyte# 0.38 X10^3/uL; Monocyte% 7.4 % (0-10); NRBC Flagged by Analyzer 0 % (0-5); Neutrophil # 3.27 X10^3/uL (2.7-7.7); Neutrophil % 63.9 % (47-70); Platelet Count 280 K/mm3 (150-450); RBC Distribution Width CV 13.8 % (11.6-14.6); RBC Distribution Width SD 51.5 fl (35.1-43.9); Red Blood Count 4.09 M/mm3 (4.2-5.4); White Blood Count 5.1 K/mm3 (4.4-11.0)
[2022-12-06 13:15] LABS: Vitamin D,25 Hydroxy 44.7 ng/mL
[2022-12-06 13:42] LABS: AST(SGOT) 28 U/L (15-37); Alanine Aminotransfer ALT/SGPT 40 U/L (13-56); Albumin, Serum 3.8 g/dL (3.2-5.0); Alkaline Phosphatase 52 U/L (45-117); Anion Gap 7 (5-15); BUN 11 mg/dL (7-18); BUN/Creat Ratio 14.1 RATIO (10-20); Calcium,Total 9.3 mg/dL (8.5-10.1); Chloride 103 mmol/L (98-107); Creatinine, Serum 0.78 mg/dL (0.55-1.02); EST Glomerular Filtration Rate 76 mL/min (>60); Est Glom Filt Rate - Afr Amer 93 mL/min (>60); Globulin 3.7 g/dL (2.2-4.2); Glucose 87 mg/dL (74-106); Potassium 4.4 mmol/L (3.5-5.1); Protein, Total 7.5 g/dL (6.4-8.2); Sodium Level 135 mmol/L (136-145); Thyroid Stim Hormone (TSH) 0.72 uIU/mL (0.358-3.74)
== END | disposition home or self-care (01) ==
LOC: LAB 11:18
PROVIDERS: PCP Family Medicine Geriatric Medicine; Referring Provider Family Medicine Geriatric Medicine; Visit Provider Family Medicine Geriatric Medicine
DX: R53.83 Other fatigue (principal); E55.9 Vitamin D deficiency, unspecified
CPT/HCPCS: 36415; 80053; 82306; 84443; 85025

== ENCOUNTER → 2023-01-10 | Outpatient (CLI) | payer MEDICARE, SELFPAY ==
--- NOTE | 2023-01-10 13:55 | BI_ITS ---
MAMMOGRAPHY - BILATERAL SCREENING REASON FOR EXAM: Female, 72 years old. Routine annual screening examination. PERTINENT HISTORY: Personal history of breast cancer. Prior left lumpectomy and radiation treatment. Prior right breast reduction surgery. TECHNIQUE: Digital bilateral breast eileen (3D mammographic acquisition) in the CC and MLO projections. 2-D mediolateral oblique (MLO) and craniocaudad (CC) views of both breasts were obtained. CAD: Full Field Digital Mammography with Computer Added Detection was performed. COMPARISON: Comparison is made with prior study dated December 14, 2021 and December 11, 2020. FINDINGS: Breast Composition: There are scattered areas of fibroglandular density. There are no dominant masses or suspicious calcifications. Status post left breast lumpectomy with stable changes. Stable small benign-appearing bilateral axillary lymph nodes. No other significant abnormalities are identified. There has been no significant change since the prior study. BI/SCRN MAMM (CAD)W/EILEEN BILAT IMPRESSION: Stable bilateral screening mammogram. Yearly follow-up mammogram recommended. (A) ASSESSMENT CATEGORY: BIRADS Category 2: Benign. A letter regarding these results will be sent to the patient by the facility within 30 days. Approximately 10% of breast cancers are not detected by mammography. A normal mammogram should not delay biopsy of a clinically suspicious abnormality. [id number] Electronically Signed: Giovanni Cerda MD at 15:37 EDT ,
== END | disposition home or self-care (01) ==
LOC: OPBI 13:54
PROVIDERS: PCP Family Medicine Geriatric Medicine; Referring Provider Family Medicine Geriatric Medicine; Visit Provider Family Medicine Geriatric Medicine
DX: Z12.31 Encounter for screening mammogram for malignant neoplasm of breast (principal); Z85.3 Personal history of malignant neoplasm of breast
CPT/HCPCS: 77063; 77067

== ENCOUNTER 2023-05-06 12:50 | Outpatient (CLI) | payer MEDICARE, SELFPAY ==
[2023-05-06 12:56] VITALS: BP 113/53; PULSE 85; RESP 16; TEMP 36.2; O2SAT 95; BMI 21.9
[2023-05-06] MEDS: DENOSUMAB 60 MG/ML SC (12:59)
== END 2023-05-06 12:51 | disposition home or self-care (01) ==
PROVIDERS: PCP Family Medicine Geriatric Medicine; Referring Provider Internal Medicine Endocrinology, Diabetes & Metabolism; Visit Provider Internal Medicine Endocrinology, Diabetes & Metabolism
DX: M81.0 Age-related osteoporosis without current pathological fracture (principal)
CPT/HCPCS: 96372; J0897

== ENCOUNTER → 2023-06-06 | Outpatient (CLI) | payer MEDICARE, SELFPAY ==
[2023-06-06 14:53] LABS: Absolute Lymphocyte Count 2.03 X10^3/uL (0.83-4.51); Absolute Neutrophil Count 4.1 X10^3/uL (2.0-7.7); Basophil# 0.03 X10^3/uL; Basophil% 0.4 % (0-1); Eosinophil# 0.07 X10^3/uL; Hematocrit 38.4 % (37-47); Hemoglobin 12.6 g/dL (12.0-15.0); Lymphocyte # 2.03 X10^3/ul (0.83-4.51); Lymphocyte % 30.4 % (19-41); Mean Corp Hgb Conc 32.8 g/dL (32-36); Mean Corpuscular Hgb 32.5 pg (27.0-32.0); Mean Platelet Vol. 9.5 fl (6.2-12.0); Monocyte# 0.44 X10^3/uL; Monocyte% 6.6 % (0-10); NRBC Flagged by Analyzer 0 % (0-5); Neutrophil # 4.08 X10^3/uL (2.7-7.7); Neutrophil % 61.3 % (47-70); Platelet Count 270 K/mm3 (150-450); RBC Distribution Width CV 14.4 % (11.6-14.6); RBC Distribution Width SD 52.4 fl (35.1-43.9); Red Blood Count 3.88 M/mm3 (4.2-5.4); White Blood Count 6.7 K/mm3 (4.4-11.0)
[2023-06-06 15:07] LABS: Vitamin D,25 Hydroxy 39.1 ng/mL
[2023-06-06 15:12] LABS: ALB/GLOB Ratio 1.2 RATIO (0.9-2.4); AST(SGOT) 31 U/L (15-37); Alanine Aminotransfer ALT/SGPT 38 U/L (13-56); Albumin, Serum 3.8 g/dL (3.2-5.0); Alkaline Phosphatase 45 U/L (45-117); Anion Gap 6 (5-15); BUN 15 mg/dL (7-18); BUN/Creat Ratio 19.9 RATIO (10-20); Calcium,Total 8.5 mg/dL (8.5-10.1); Chloride 105 mmol/L (98-107); Creatinine, Serum 0.75 mg/dL (0.55-1.02); EST Glomerular Filtration Rate 80 mL/min (>60); Est Glom Filt Rate - Afr Amer 97 mL/min (>60); Globulin 3.2 g/dL (2.2-4.2); Glucose 82 mg/dL (74-106); Potassium 4.2 mmol/L (3.5-5.1); Sodium Level 135 mmol/L (136-145); Thyroid Stim Hormone (TSH) 1.11 uIU/mL (0.358-3.74)
== END | disposition home or self-care (01) ==
LOC: POLAB3 13:33
PROVIDERS: PCP Family Medicine Geriatric Medicine; Visit Provider Family Medicine Geriatric Medicine
DX: R53.83 Other fatigue (principal); E55.9 Vitamin D deficiency, unspecified
CPT/HCPCS: 36415; 80053; 82306; 84443; 85025

== ENCOUNTER → 2023-09-16 | Outpatient (CLI) | payer MEDICARE, SELFPAY ==
--- NOTE | 2023-09-16 09:49 | CDU_ITS ---
Reason For Study: Carotid bruits Rt. Velocities/BP Lt. Velocities/BP Prox CCA 84.4/19.2 cm/sec. Prox CCA 112/27.9 cm/sec. Mid CCA 108.4/24.9 cm/sec. Mid CCA 108.3/24.3 cm/sec. Dist CCA 99.8/26.2 cm/sec. Dist CCA 95.5/26.1 cm/sec. Prox ICA 97.4/22.5 cm/sec. Prox ICA 71.6/20 cm/sec. Mid ICA 110.9/33.5 cm/sec. Mid ICA 94.9/26.2 cm/sec. Dist ICA 98.6/32.3 cm/sec. Dist ICA 121.1/37.1 cm/sec. Rt. ICA/CCA = 1.11. Lt. ICA/CCA = 1.12. Prox ECA 90/11.4 cm/sec. Prox ECA 83.9/11.4 cm/sec. Rt. Vert. 51.3/9.7 cm/sec. Lt. Vert. 75.3/15.1 cm/sec. Right Extracranial There is intimal thickening but no significant atherosclerotic plaque noted in the right common carotid artery. There is intimal thickening but no significant atherosclerotic plaque noted in the right internal carotid artery. There is intimal thickening but no significant atherosclerotic plaque noted in the right external carotid artery. Antegrade flow is noted in the right vertebral artery. Left Extracranial There is intimal thickening but no significant atherosclerotic plaque noted in the left common carotid artery. There is intimal thickening but no significant atherosclerotic plaque noted in the left internal carotid artery. There is intimal thickening but no significant atherosclerotic plaque noted in the left external carotid artery. Antegrade flow is noted in the left vertebral artery. Procedure Carotid Duplex [id number]. This is a Carotid Duplex examination using B-mode, color flow and specral Doppler. Exam performed in department. VL/Carotid Duplex Ultrasound Interpretation Summary Intimal thickening at the proximal bilateral internal carotid arteries with les s than 50% stenosis Less than 50% stenosis bilateral external carotid arteries Patent antegrade vertebral arteries bilaterally Ordering Physician: María Prado Referring Physician: Rashel Lopez Chi Performed By: Arline Cisneros RVT
--- OUTSIDE RECORDS SUMMARY | 2023-09-16 10:24 | XMS RPT_ITS | CCD ---
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 Role Phone Shanice Piña Y Unavailable Unavailable LyssaisShanice Y Unavailable Unavailable Allergies Allergy Classification Reported Allergen(s) Allergy Type Date of Onset Reaction(s) Facility (2 sources) buPROPion drug allergy 09-02-2011 [facility] Work Phone: (2 sources) estrogens, conjugated (shelter) drug allergy 09-02-2011 [facility] [place] 2] [facility] Work Phone: (2 sources) nitrofurantoin drug allergy 09-02-2011 [facility] [place] 2] Group Work Phone: (2 sources) teriparatide drug allergy 09-02-2011 [facility] [place] 2] [facility] Work Phone: (2 sources) venlafaxine drug allergy 09-02-2011 [facility] Work Phone: Medications Completed/Discontinued Medications Medication Drug Class(es) Dates Sig (Normalized) Sig (Original) atorvastatin 20 mg oral tablet (2 sources) HMG-CoA Reductase Inhibitor Start: 09-29-2011 take 1 tablet by mouth once daily LIPITOR 20 MG TABS One tablet by mouth daily ATORVASTATIN CALCIUM [id number] Kaylen Bowles RN citalopram 10 mg oral tablet (4 sources) Serotonin Reuptake Inhibitor Start: 09-02-2011 take 1 tablet by mouth once daily CITALOPRAM HYDROBROMIDE 10 MG TABS One tablet by mouth daily CITALOPRAM HYDROBROMIDE [id number] Fransisca Del Rosario Problems Active Problems Problem Classification Problem Date Documented Da te Episodic/Chronic Cardiac dysrhythmias (2 sources) Paroxysmal tachycardia; Translations: [Paroxysmal tachycardia, unspecified] Onset: 09-02-2011 09-02-2011 Chronic Disorders of lipid metabolism (2 sources) Hyperlipidemia; Translations: [Hyperlipidemia, unspecified] Onset: 09-02-2011 09-02-2011 Chronic Thyroid disorders (2 sources) Iatrogenic hypothyroidism; 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] Onset: 09-02-2011 09-02-2011 Chronic Past or Other Problems Problem Classification Problem Date Documented Da te Episodic/Chronic Cardiac dysrhythmias (4 sources) Palpitations; Translations: [Tachycardia] Onset: 09-02-2011 09-02-2011 Episodic Other acquired deformities (2 sources) Mallet finger; Translations: [Mallet finger of right finger(s)] Onset: 03-10-2016 03-21-2016 Episodic Other aftercare (2 sources) Other nursing home (current) drug therapy; Translations: [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] Onset: 09-02-2011 09-02-2011 Episodic Other lower respiratory disease (4 sources) Snoring; Translations: [Dyspnea] Onset: 09-02-2011 09-03-2013 Episodic Other nutritional; endocrine; and metabolic disorders (8 sources) Body mass index (BMI) 25.0-25.9, adult; Translations: [Body mass index (BMI) 26.0-26.9, adult] Onset: 09-03-2013 Resolved: 09-03-2016 09-03-2016 Episodic Results Test Name Value Interpretation Reference Range Facil ity Vital Signs Date Time Vital Sign Value Performing Clinician Chauncey goodwin 09-03-2016 10:22-0500 BMI (Body Mass Index) 25.84 kg/m2 [facility] Work Phone: 09-03-2016 10:22-0500 BP Diastolic 76 mm[Hg] [facility] Work Phone: 09-03-2016 10:22-0500 BP Systolic 112 mm[Hg] [facility] Work Phone: 09-03-2016 10:22-0500 Pulse (Heart Rate) 84 /min [facility] Work Phone: 09-03-2016 10:22-0500 Respiratory Rate 16 /min [facility] Work Phone: 09-03-2016 10:22-0500 Weight 74.84 kg [facility] Work Phone: 09-05-2015 13:01-0500 BSA (Body Surface Area) 1.85 m2 [facility] Work Phone: 09-02-2014 09:58-0500 Height 170.18 cm [facility] Work Phone: Procedures Date Procedure Procedure Detail Performing Clinician Start: 09-03-2016 End: 09-03-2016 Follow Up Appt 1 year Jaylan Thompson Start: 09-03-2016 End: 09-03-2016 PFM Jaylan Mace MD Start: 09-05-2015 End: 09-05-2015 Follow Up Appt 1 year Jaylan Thompson Start: 09-05-2015 End: 09-05-2015 Follow Up Appt Other Jaylan Mace MD Start: 09-05-2015 End: 09-05-2015 PFM Jaylan Mace MD Start: 03-12-2015 End: 09-08-2015 Lipid panel [AGGREGATE] Sunita arenas PA-C Work Phone: Start: 09-02-2014 End: 09-09-2014 *Hepatic Function Panel Jaylan Mace MD Start: 09-02-2014 End: 09-02-2014 Follow Up Appt 1 year Jaylan Thompson Start: 09-02-2014 End: 09-09-2014 Lipid panel [AGGREGATE] Jaylan Mace MD Start: 09-02-2014 End: 09-02-2014 PFM Jaylan Mace MD Start: 09-03-2013 End: 09-03-2013 Follow Up Appt 1 year Jaylan Thompson Start: 09-03-2013 End: 09-03-2013 PFM Jaylan Mace MD Start: 09-07-2012 End: 09-07-2012 Electrocardiogram, complete Jaylan Mace MD Start: 09-07-2012 End: 09-07-2012 Follow Up Appt 1 year Jaylan Thompson Start: 09-07-2012 End: 09-07-2012 PFM Jaylan Mace MD Start: 09-07-2011 End: 09-23-2011 *Hepatic Function Panel Jaylan Mace MD Start: 09-07-2011 End: 09-07-2011 Electrocardiogram, complete Jaylan Mace MD Start: 09-07-2011 End: 09-07-2011 Follow Up Appt 1 year Jaylan Thompson Start: 09-07-2011 End: 09-23-2011 Lipid panel [AGGREGATE] Jaylan Mace MD Plan of Treatment Date Care Activity Detail Author Start: 09-12-2017 End: 09-12-2017 Appointment Appointment [facility] Work Phone: Start: 09-03-2016 End: 09-03-2016 Follow Up Appt 1 year Follow Up Appt 1 year [facility] Work Phone: Start: 09-03-2016 End: 09-03-2016 PFM PFM [facility] Work Phone: Start: 04-16-2016 End: 10-16-2015 *Hepatic Function Panel *Hepatic Function Panel [facility] Work Phone: Start: 04-16-2016 End: 10-16-2015 Lipid panel [AGGREGATE] *Lipid Profile CC PCP [facility] Work Phone: Start: 09-05-2015 End: 09-05-2015 Follow Up Appt 1 year Follow Up Appt 1 year [facility] Work Phone: Start: 09-05-2015 End: 09-05-2015 Follow Up Appt Other Follow Up Appt Other [facility] Work Phone: Start: 09-05-2015 End: 09-05-2015 PFM PFM [facility] Work Phone: Start: 03-12-2015 End: 09-08-2015 Lipid panel [AGGREGATE] *Lipid Profile CC PCP [facility] Work Phone: Start: 09-02-2014 End: 09-09-2014 *Hepatic Function Panel *Hepatic Function Panel [facility] Work Phone: Start: 09-02-2014 End: 09-02-2014 Follow Up Appt 1 year Follow Up Appt 1 year [facility] Work Phone: Start: 09-02-2014 End: 09-09-2014 Lipid panel [AGGREGATE] *Lipid Profile CC PCP [facility] Work Phone: Start: 09-02-2014 End: 09-02-2014 PFM PFM [facility] Work Phone: Start: 09-03-2013 End: 09-03-2013 Follow Up Appt 1 year Follow Up Appt 1 year [facility] Work Phone: Start: 09-03-2013 End: 09-03-2013 PFM PFM [facility] Work Phone: Start: 09-07-2012 End: 09-07-2012 Electrocardiogram, complete EKG (In office) [facility] Work Phone: Start: 09-07-2012 End: 09-07-2012 Follow Up Appt 1 year Follow Up Appt 1 year [facility] Work Phone: Start: 09-07-2012 End: 09-07-2012 PFM PFM [facility] Work Phone: Start: 09-07-2011 End: 09-23-2011 *Hepatic Function Panel *Hepatic Function Panel [facility] Work Phone: Start: 09-07-2011 End: 09-07-2011 Electrocardiogram, complete EKG (In office) [facility] Work Phone: Start: 09-07-2011 End: 09-07-2011 Follow Up Appt 1 year Follow Up Appt 1 year [facility] Work Phone: Start: 09-07-2011 End: 09-23-2011 Lipid panel [AGGREGATE] *Lipid Profile [facility] Work Phone: Patient Education HYPERLIPIDEMIA , PALPITATIONS [facility] Work Phone: Additional Source Comments FOR RECORDS PERTAINING TO PATIENTS WHO ARE OR HAVE BEEN ENROLLED IN A CHEMICAL DEPENDENCY/SUBSTANCEABUSE PROGRAM, SOME INFORMATION MAY BE OMITTED. This clinical summary was aggregated from multiple sources. Caution should be exercised in using it in the provision of clinical care. This summary normalizes information from multiple sources, and as a consequence, information in this document may materially change the coding, format and clinical context of patient data. In addition, data may be omitted in some cases. CLINICAL DECISIONS SHOULD BE BASED ON THE PRIMARY CLINICAL RECORDS. [employer] provides no warranty or guarantee of the accuracy or completeness of information in this document.
== END | disposition home or self-care (01) ==
LOC: CVS 09:48
PROVIDERS: PCP Family Medicine Geriatric Medicine; Referring Provider Internal Medicine Cardiovascular Disease; Visit Provider Internal Medicine Cardiovascular Disease
DX: R09.89 Other specified symptoms and signs involving the circulatory and respiratory systems (principal); I77.9 Disorder of arteries and arterioles, unspecified
CPT/HCPCS: 93880

== ENCOUNTER → 2023-12-13 | Outpatient (CLI) | payer MEDICARE, SELFPAY ==
[2023-12-13 13:30] LABS: Absolute Lymphocyte Count 1.88 X10^3/uL (0.83-4.51); Absolute Neutrophil Count 4.4 X10^3/uL (2.0-7.7); Basophil# 0.04 X10^3/uL; Basophil% 0.6 % (0-1); Eosinophil# 0.09 X10^3/uL; Eosinophils% 1.3 % (0-5); Hematocrit 39.2 % (37-47); Lymphocyte # 1.88 X10^3/ul (0.83-4.51); Mean Corp Hgb Conc 33.2 g/dL (32-36); Mean Corpuscular Hgb 32.3 pg (27.0-32.0); Mean Corpuscular Volume 97.5 fL (81-99); Mean Platelet Vol. 8.3 fl (6.2-12.0); Monocyte% 7.2 % (0-10); NRBC Flagged by Analyzer 0 % (0-5); Neutrophil # 4.43 X10^3/uL (2.7-7.7); Neutrophil % 63.6 % (47-70); Platelet Count 257 K/mm3 (150-450); RBC Distribution Width CV 13.4 % (11.6-14.6); RBC Distribution Width SD 48.1 fl (35.1-43.9); Red Blood Count 4.02 M/mm3 (4.2-5.4)
[2023-12-13 14:22] LABS: Vitamin D,25 Hydroxy 34.6 ng/mL
[2023-12-13 14:26] LABS: ALB/GLOB Ratio 1.2 RATIO (0.9-2.4); AST(SGOT) 27 U/L (15-37); Alanine Aminotransfer ALT/SGPT 31 U/L (13-56); Albumin, Serum 3.8 g/dL (3.2-5.0); Alkaline Phosphatase 48 U/L (45-117); Anion Gap 3 (5-15); BUN 15 mg/dL (7-18); BUN/Creat Ratio 20.2 RATIO (10-20); Calcium,Total 8.9 mg/dL (8.5-10.1); Chloride 103 mmol/L (98-107); Cholesterol 158 mg/dL (200); Creatinine, Serum 0.74 mg/dL (0.55-1.02); EST Glomerular Filtration Rate 81 mL/min (>60); Est Glom Filt Rate - Afr Amer 98 mL/min (>60); Globulin 3.1 g/dL (2.2-4.2); Glucose 99 mg/dL (74-106); High Density Lipoprotein 90 mg/dL; Potassium 4.4 mmol/L (3.5-5.1); Protein, Total 6.9 g/dL (6.4-8.2); Sodium Level 132 mmol/L (136-145); Thyroid Stim Hormone (TSH) 0.37 uIU/mL (0.358-3.74); Triglycerides 123 mg/dL; Very Low Density Lipoprotein 25 mg/dL (5-40)
== END | disposition home or self-care (01) ==
PROVIDERS: PCP Family Medicine Geriatric Medicine; Referring Provider Family Medicine Geriatric Medicine; Visit Provider Family Medicine Geriatric Medicine
DX: I10 Essential (primary) hypertension (principal); E55.9 Vitamin D deficiency, unspecified; E78.5 Hyperlipidemia, unspecified; N39.0 Urinary tract infection, site not specified
CPT/HCPCS: 36415; 80053; 80061; 82306; 84443; 85025; 87086

== ENCOUNTER → 2024-01-13 | Outpatient (CLI) | payer MEDICARE, SELFPAY ==
--- NOTE | 2024-01-13 09:56 | BI_ITS ---
MAMMOGRAPHY - BILATERAL SCREENING REASON FOR EXAM: Female, 73 years old. Routine annual screening examination. PERTINENT HISTORY: Personal history of breast cancer. Prior left lumpectomy with radiation therapy. Prior left stereotactic breast biopsy and right breast reduction surgery. TECHNIQUE: Digital bilateral breast eileen (3D mammographic acquisition) in the CC and MLO projections. 2-D mediolateral oblique (MLO) and craniocaudad (CC) views of both breasts were obtained. CAD: Full Field Digital Mammography with Computer Added Detection was performed. COMPARISON: Comparison is made with prior study dated January 10, 2023 and December 14, 2021. FINDINGS: Breast Composition: There are scattered areas of fibroglandular density. There are no dominant masses or suspicious calcifications. Once again, the patient is status post lumpectomy in the upper outer quadrant of the left breast with resultant postoperative scarring and decreased size and deformity of the left breast. 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 No other significant abnormalities are identified. There has been no significant change since the prior study. BI/SCRN MAMM (CAD)W/EILEEN BILAT IMPRESSION: Stable bilateral screening mammogram. Yearly follow-up mammogram recommended. (A) ASSESSMENT CATEGORY: BIRADS Category 2: Benign. A letter regarding these results will be sent to the patient by the facility within 30 days. Approximately 10% of breast cancers are not detected by mammography. A normal mammogram should not delay biopsy of a clinically suspicious abnormality. [id number] Electronically Signed: Giovanni Cerda MD at 10:39 EDT ,
== END | disposition home or self-care (01) ==
LOC: OPBI 09:55
PROVIDERS: PCP Family Medicine Geriatric Medicine; Referring Provider Family Medicine Geriatric Medicine; Visit Provider Family Medicine Geriatric Medicine
DX: Z12.31 Encounter for screening mammogram for malignant neoplasm of breast (principal); Z85.3 Personal history of malignant neoplasm of breast
CPT/HCPCS: 77063; 77067

== ENCOUNTER → 2024-06-12 | Outpatient (CLI) | payer MEDICARE, SELFPAY ==
[2024-06-12 11:18] LABS: Absolute Lymphocyte Count 1.91 X10^3/uL (0.83-4.51); Absolute Neutrophil Count 4.1 X10^3/uL (2.0-7.7); Basophil# 0.02 X10^3/uL; Basophil% 0.3 % (0-1); Eosinophils% 1.5 % (0-5); Hematocrit 38.4 % (37-47); Hemoglobin 13.1 g/dL (12.0-15.0); Lymphocyte # 1.91 X10^3/ul (0.83-4.51); Lymphocyte % 28.9 % (19-41); Mean Corp Hgb Conc 34.1 g/dL (32-36); Mean Corpuscular Volume 96.7 fL (81-99); Monocyte# 0.45 X10^3/uL; Monocyte% 6.8 % (0-10); NRBC Flagged by Analyzer 0 % (0-5); Neutrophil # 4.12 X10^3/uL (2.7-7.7); Neutrophil % 62.2 % (47-70); Platelet Count 307 K/mm3 (150-450); RBC Distribution Width CV 14.2 % (11.6-14.6); RBC Distribution Width SD 50.7 fl (35.1-43.9); Red Blood Count 3.97 M/mm3 (4.2-5.4); White Blood Count 6.6 K/mm3 (4.4-11.0)
[2024-06-12 11:58] LABS: Vitamin D,25 Hydroxy 43.3 ng/mL
[2024-06-12 12:08] LABS: ALB/GLOB Ratio 1.2 RATIO (0.9-2.4); AST(SGOT) 28 U/L (15-37); Alanine Aminotransfer ALT/SGPT 34 U/L (13-56); Albumin, Serum 3.9 g/dL (3.2-5.0); Alkaline Phosphatase 46 U/L (45-117); Anion Gap 5 (5-15); BUN 17 mg/dL (7-18); Calcium,Total 9.4 mg/dL (8.5-10.1); Chloride 101 mmol/L (98-107); Creatinine, Serum 0.74 mg/dL (0.55-1.02); EST Glomerular Filtration Rate 81 mL/min (>60); Est Glom Filt Rate - Afr Amer 98 mL/min (>60); Globulin 3.3 g/dL (2.2-4.2); Glucose 96 mg/dL (74-106); Potassium 4.1 mmol/L (3.5-5.1); Protein, Total 7.2 g/dL (6.4-8.2); Sodium Level 131 mmol/L (136-145); Thyroid Stim Hormone (TSH) 0.691 uIU/mL (0.358-3.740)
== END | disposition home or self-care (01) ==
LOC: POLAB3 11:07
PROVIDERS: PCP Family Medicine Geriatric Medicine; Visit Provider Family Medicine Geriatric Medicine
DX: R53.83 Other fatigue (principal); E55.9 Vitamin D deficiency, unspecified
CPT/HCPCS: 36415; 80053; 82306; 84443; 85025

== ENCOUNTER → 2024-12-13 | Outpatient (CLI) | payer MEDICARE, SELFPAY ==
--- NOTE | 2024-12-13 10:10 | RAD_ITS ---
PROCEDURE: ABD INC DECUB AND/OR ERECT 12/13/2024 REASON FOR EXAM: DIARRHEA TECHNIQUE: Single view abdomen. COMPARISON: None. FINDINGS: There is a nonobstructive bowel gas pattern. There are no abnormal soft tissue calcifications project over either renal outline or along the path of either ureter. There are calcified injection granulomas in the left buttock. There is dextroscoliosis of the thoracolumbar spine. RAD/Abd Inc Decub and/or Erect IMPRESSION: No evidence of acute abdominal pathology. Reading Location: [place] [id number]
[2024-12-13 11:10] LABS: Absolute Lymphocyte Count 1.51 X10^3/uL (0.83-4.51); Absolute Neutrophil Count 3.7 X10^3/uL (2.0-7.7); Basophil# 0.04 X10^3/uL; Basophil% 0.7 % (0-1); Eosinophil# 0.11 X10^3/uL; Eosinophils% 1.9 % (0-5); Hematocrit 42.3 % (37-47); Hemoglobin 14.6 g/dL (12.0-15.0); Lymphocyte # 1.51 X10^3/ul (0.83-4.51); Lymphocyte % 25.9 % (19-41); Mean Corp Hgb Conc 34.5 g/dL (32-36); Mean Corpuscular Hgb 33.6 pg (27.0-32.0); Mean Corpuscular Volume 97.5 fL (81-99); Mean Platelet Vol. 8.8 fl (6.2-12.0); Monocyte# 0.47 X10^3/uL; NRBC Flagged by Analyzer 0 % (0-5); Neutrophil % 63.3 % (47-70); Platelet Count 304 K/mm3 (150-450); RBC Distribution Width CV 13.1 % (11.6-14.6); Red Blood Count 4.34 M/mm3 (4.2-5.4); White Blood Count 5.8 K/mm3 (4.4-11.0)
[2024-12-13 12:03] LABS: ALB/GLOB Ratio 1.7 RATIO (0.9-2.4); AST(SGOT) 32 U/L (<=31); Alanine Aminotransfer ALT/SGPT 26 U/L (<=34); Albumin, Serum 4.5 g/dL (3.4-4.8); Alkaline Phosphatase 51 U/L (35-104); Anion Gap 12 (5-15); BUN 18 mg/dL (4-19); BUN/Creat Ratio 21.2 RATIO (10-20); Calcium,Total 9.8 mg/dL (7.6-11.0); Carbon Dioxide 23.7 mmol/L (21.0-32.0); Chloride 102 mmol/L (98-108); Creatinine, Serum 0.83 mg/dL (0.70-1.20); EST Glomerular Filtration Rate 73 (>60); Globulin 2.7 g/dL (2.2-4.2); Glucose 98 mg/dL (70-99); Potassium 4.8 mmol/L (3.3-5.1); Protein, Total 7.2 g/dL (5.9-8.4); Sodium Level 137 mmol/L (133-145); Thyroid Stim Hormone (TSH) 0.259 uIU/mL (0.300-4.200); Total Bilirubin 0.42 mg/dL (0.00-1.30)
== END | disposition home or self-care (01) ==
LOC: RAD 10:06
PROVIDERS: PCP Family Medicine Geriatric Medicine; Referring Provider Family Medicine Geriatric Medicine; Visit Provider Family Medicine Geriatric Medicine
DX: E55.9 Vitamin D deficiency, unspecified (principal); R53.83 Other fatigue; R19.7 Diarrhea, unspecified; Z85.3 Personal history of malignant neoplasm of breast
CPT/HCPCS: 36415; 74019; 80053; 82306; 84443; 85025

== ENCOUNTER → 2025-01-14 | Outpatient (CLI) | payer MEDICARE, SELFPAY ==
--- NOTE | 2025-01-14 10:58 | BI_ITS ---
EXAM: SCRN MAMM (CAD)W/EILEEN BILAT DATE: 01/14/2025 CLINICAL HISTORY: F, Age 74 y/o , SCREENING TECHNIQUE: SCRN MAMM (CAD)W/EILEEN BILAT COMPARISON: Prior exam(s) were compared FINDINGS: TISSUE DENSITY: The breasts are heterogeneously dense, which may obscure small masses. Bilateral Breast Mammographic Findings: No suspicious masses, calcifications or other abnormalities are identified. BI/SCRN MAMM (CAD)W/EILEEN BILAT IMPRESSION: No mammographic evidence of malignancy in either breast OVERALL FINAL ASSESSMENT BI-RADS 1: NEGATIVE. RECOMMENDATION: Routine annual follow-up in 1 Year A letter with findings and recommendations will be mailed to the patient. Reading Location: [id number]
== END | disposition home or self-care (01) ==
LOC: OPBI 10:53
PROVIDERS: PCP Family Medicine Geriatric Medicine; Referring Provider Family Medicine Geriatric Medicine; Visit Provider Family Medicine Geriatric Medicine
DX: Z12.31 Encounter for screening mammogram for malignant neoplasm of breast (principal)
CPT/HCPCS: 77063; 77067

== ENCOUNTER → 2025-01-31 | Outpatient (CLI) | payer MEDICARE, SELFPAY | END | disposition home or self-care (01) | LOC: POLAB3 13:42 | PROVIDERS: PCP Family Medicine Geriatric Medicine; Visit Provider Family Medicine Geriatric Medicine | DX: E03.9 Hypothyroidism, unspecified (principal) | CPT/HCPCS: 36415; 84443 ==

== ENCOUNTER 2025-02-14 07:04 | Day surgery (SDC) | payer MEDICARE, SELFPAY ==
--- NOTE | 2025-02-12 17:31 | PAT.ANE_ITS ---
Pre-Assessment Diagnosis/Proposed Procedure Planned Operative Procedure(s): COLONOSCOPY Anesthesia History Anesthesia History - insurance verification representative: Anesthesia History - insurance verification representative Hx Hospitalization No 02/12/25 16:57 Any Problems With Anesthesia Yes: PONV 02/12/25 16:57 Cholinesterase deficiency No 02/12/25 16:57 You/Your Family Experience No 02/12/25 16:57 fever (hyperthermia) with Relationship Recent Exposure to Contagious Disease Does patient have nerve No 02/12/25 16:57 stimulator Patient instructed to have device shut off --Does patient have Pacemaker or ICD? When Was Last Pacemaker Check QUESTION #4 FULL TEXT: You/Your Family Experience fever (hyperthermia) with Anesthesia Last Oral Intake Last Oral intake: Last Oral Intake NPO since Meds taken in AM with sips of water? Meds patient instructed to take am of surgery PONV PONV - insurance verification representative: PONV - insurance verification representative Female Yes 02/12/25 16:57 HX of Motion Sickness No 02/12/25 16:57 HX of N/V After Surgery Yes 02/12/25 16:57 Non-Smoker Yes 02/12/25 16:57 Duration of Surgery greater No 02/12/25 16:57 than 60 minutes Number of Risk Factors 3 02/12/25 16:57 PONV Score Moderate Risk 02/12/25 16:57 Height & Weight Height & Weight: Anesthesia: Height & Weight Height 5 ft 7 in 10/08/24 07:55 Respiratory Assessment Respiratory Assessment - insurance verification representative: Respiratory Tract Infection Hx - insurance verification representative Hx Respiratory Tract Infection No 02/12/25 16:57 STOP Sleep Apnea STOP Sleep Apnea - insurance verification representative: STOP Sleep Apnea - insurance verification representative Hx Hypertension No 02/12/25 16:57 Hx Sleep Apnea No 02/12/25 16:57 CPAP BIPAP Do you snore loudly (louder No 02/12/25 16:57 than talking or can be heard Do you often feel tired/ No 02/12/25 16:57 fatigued/ sleepy during daytime? Has anyone observed you stop No 02/12/25 16:57 breathing during sleep? STOP Results Negative 02/12/25 16:57 QUESTION #5 FULL TEXT : Do you snore loudly (louder than talking or can be heard through closed doors)? 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 Specify any problems Hx of Preganancy in last 3 No 02/12/25 16:57 Months Nurse Filling Out Transfusion MGRIFFITH 02/12/25 16:57 & Questions: Date: 02/12/25 02/12/25 16:57 Time: 16:59 02/12/25 16:57 Patient unable to answer at this time (ie. confused, unrespo /Reproduction History /Reproductive History - insurance verification representative: /Reproductive Hx- insurance verification representative Hx Now No 02/12/25 16:57 Gestational Age (in weeks): EDC: Hx Hx Para Hx Section SAB No 02/12/25 16:57 PFSH Medical History (Updated 02/12/25 @ 17:08 by Trinity Grant) Cancer Depression Thyroid disease Arthritis Fatty liver Easy bruising Syncope Seasonal allergies PONV (postoperative nausea and vomiting) Former smoker Leg cramps Cardiology follow-up encounter Diarrhea Carotid artery disease Carotid bruit Osteoporosis Pure hypercholesterolemia Ectopic atrial tachycardia Premature atrial contraction Premature ventricular contraction balloon sinusplasty Hyperlipidemia Paroxysmal tachycardia Tachycardia Palpitations retirement use of drug Iatrogenic hypothyroidism Home Medications ?Medication ?Instructions ?Recorded ?Last Taken ?Type rosuvastatin 20 mg tablet 20 mg PO QDAY 09/26/17 Unkno wn History citalopram 20 mg tablet 20 mg PO QDAY 09/27/17 Unkno wn History fluticasone propionate 50 2 spray intranasal QDAY PRN 08/12/21 Unknown History mcg/actuation nasal allergy symptoms spray,suspension (Flonase Allergy Relief) denosumab 60 mg/mL subcutaneous 60 mg subcut [id number] #1 mL 04/25/23 Unknown Rx syringe montelukast 10 mg tablet 10 mg PO DAILY 10/13/23 Unkn own History coQ10 (ubiquinol) 100 mg capsule 100 mg PO DAILY 12/21 Unknown History (Qunol Donnell CoQ10) valacyclovir 500 mg tablet 500 mg PO Q12H PRN HERPES S KIN 12/21/24 Unknown History OUTBREAK levothyroxine 75 mcg tablet 75 mcg PO DAILY 02/12/25 U nknown History Allergy/AdvReac Type Severity Reaction Status Date / Time nitrofurantoin (From Allergy Hives Verified 02/12/25 16:50 Macrodantin) bupropion (From Wellbutrin) AdvReac Severe Unknown Verified 02/12/25 16:50 estrogens, conjugated (From AdvReac Severe Unknown Verified 02/12/25 16:50 Premarin) teriparatide (From Forteo) AdvReac Severe Unknown Verified 02/12/25 16:50 venlafaxine (From Effexor) AdvReac Severe Unknown Verified 02/12/25 16:50 Family History Father CAD (coronary artery disease) Mother Diabetes Heart disease Sister Hypertension HLD (hyperlipidemia) Myocardial infarction CAD (coronary artery disease) Surgical History (Updated 02/12/25 @ 16:57 by Trinity Grant) History of reduction surgery of right breast History of colonoscopy History of basal cell carcinoma excision History of bilateral cataract extraction H/O arthroscopy of right knee exploratory lap History of total abdominal hysterectomy History of tonsillectomy and adenoidectomy History of lumpectomy of left breast Social History Smoking Status: Former smoker how long ago did patient quit smokin alcohol intake: never substance use type: does not use caffeine: Yes Type: coffee Number of servings: 4 and tea what type of physical activity do you participate in: none seatbelt use: always do you feel safe at home: Yes Audit: Pertinent Findings Pertinent Findings Consult pertinent findings: October 08, 2024. Grey HUDSON. 1. Ectopic atrial tachycardia-by history only. Denies recent symptoms or events. Continue to monitor. 2. Carotid artery disease-patient has a history of carotid artery disease. Last checked August 2021 and September 2023. Both of these demonstrated mild less than 50% stenosis bilaterally. Continue rosuvastatin. Intolerant to aspirin therapy. Continue to monitor with carotid ultrasound. Recommendation Anesthesia Recommendation Anesthesia recommendation: OPTIMIZED for anesthesia
[2025-02-14] VITALS (8 sets, daily range): BP systolic 93–104; BP diastolic 46–66; PULSE 70–78; RESP 16–18; TEMP 36.3–37; O2SAT 98–100; BMI 21.9
--- OUTSIDE RECORDS SUMMARY | 2025-02-14 07:09 | XMS RPT_ITS | CCD ---
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 Rashel Escobar Primary Care Provider [phone] John, Dr. Rashel Escobar Referring Provider Dr. Jaylan Mace Attending Provider 1([facility])[phone] John, Dr. Rashel Escobar Primary Care Provider 1([facility])[phone] John, Dr. Rashel Escobar Referring Provider 1([facility])[phone] Michael Regalado Attending Provider 1([facility])[phone] John, Dr. Rashel Escobar Primary Care Provider 1([facility])[phone] Sunita Harris Attending Provider Unavailable John, Dr. Rashel Escobar Referring Provider 1([facility])[phone] María Prado Attending Provider John, Dr. Rashel Escobar Primary Care Provider 1([facility])[phone] John, Dr. Rashel Escobar Referring Provider Dr. Michael Regalado Attending Provider 1([facility])[phone] John, Dr. Rashel Escobar Primary Care Provider John, Dr. Rashel Escobar Referring Provider Dr. Michael Regalado Attending Provider John, Dr. Rashel Escobar Primary Care Provider 1([facility])[phone] Dr. Gerhard Norwood Attending Provider Grey SLAUGHTER, BECCA Begum Attending Provider John COLLADO, Dr. Rashel Escobar Primary Care Provider 1([facility] )[phone] John MD, Dr. Rashel Chi Referring Provider [phone] Grey WINDOW AIR CONDITIONER INSTALLER-C, Shy Attending Provider [phone] Dr. Michael Regalado MD Attending Provider Dr. Rashel Lopez MD, Chi Attending Provider Paco WINDOW AIR CONDITIONER INSTALLER-C, Kalyani Attending Provider John, Rashel Chi Referring Unavailable Shy Edmonds NP Attending Unavailable John, Rashel Chi Primary Care Unavailable John, Rashel Chi Referring Unavailable Michael Regalado Attending Unavailable John, Rashel Chi Primary Care Unavailable Kalyani Antonio Attending Unavailable John, Rashel Chi Primary Care Unavailable John, Rashel Chi Referring Unavailable Kalyani Antonio Attending Unavailable John, Rashel Chi Primary Care Unavailable John, Rashel Chi Referring Unavailable John, Rashel Chi Referring Unavailable Michael Regalado Attending Unavailable John, Rashel Chi Primary Care Unavailable John, Rashel Chi Primary Care Unavailable John, Rashel Chi Attending Unavailable John, Rashel Chi Primary Care Unavailable John, Rashel Chi Attending Unavailable John, Rashel Chi Referring Unavailable John, Rashel Chi Referring Unavailable John, Rashel Chi Primary Care Unavailable John, Rashel Chi Attending Unavailable John, Rashel Chi Primary Care Unavailable John, Rashel Chi Attending Unavailable John, Rashel Chi Primary Care Unavailable Donald Urena Attending Unavailable John, Rashel Chi Referring Unavailable Allergies Allergy Classification Reported Allergen(s) Allergy Type Date of Onset Reaction(s) Facility (2 sources) buPROPion drug allergy 2 [facility] Work Phone: (2 sources) estrogens, conjugated (fdc) drug allergy 2 [facility] Work Phone: (2 sources) nitrofurantoin drug allergy 2 [facility] Work Phone: (2 sources) teriparatide drug allergy 2 [facility] Work Phone: (2 sources) venlafaxine drug allergy 2 [facility] Work Phone: (15 sources) buPROPion Drug Allergy 2 Unknown [facility] (15 sources) Estrogens, Conjugated (FCI) Drug Allergy 2 Unknown [facility] (15 sources) Nitrofurantoin Drug Allergy 2 Hives [facility] (15 sources) Teriparatide Drug Allergy 2 Unknown [facility] (15 sources) venlafaxine Drug Allergy 2 Unknown [facility] (1 source) buPROPion Drug Allergy 5 [facility] Repository (1 source) Estrogens, Conjugated (FCI) Drug Allergy 5 [facility] Repository (1 source) Nitrofurantoin Drug Allergy 5 [facility] Repository (1 source) Teriparatide Drug Allergy 5 [facility] Repository (1 source) venlafaxine Drug Allergy 5 [facility] Repository Medications Current Medications Medication Drug Class(es) Dates Sig (Normalized) Sig (Original) citalopram 20 mg oral tablet (20 sources) Serotonin Reuptake Inhibitor Start: 09-26-2017 End: 09-27-2017 take 1 tablet by mouth once daily Citalopram 20 mg tablet Active 20 mg PO daily September 27, 2017 10:46am Start: 09-02-2011 take 1 tablet by rajan th once daily CITALOPRAM HYDROBROMIDE 10 MG TABS One tablet by mouth daily CITALOPRAM HYDROBROMIDE [id number] Fransisca Del Rosario Start: 09-02-2011 take 1 tablet by rajan th once daily CITALOPRAM HYDROBROMIDE 20 MG TABS One tablet by mouth daily CITALOPRAM HYDROBROMIDE [id number] Jaylan Mace MD cramp defense (15 sources) Start: 04-23-2021 cramp defense Active PO April 23, 2021 8:13am Start: 04-23-2021 End: 10-13-2023 cramp defense Discontinued P O 0 April 23, 2021 12:00am October 13, 2023 1:33pm Start: 04-23-2021 End: 10-13-2023 cramp defense Discontinued P O April 23, 2021 12:00am October 13, 2023 1:33pm Start: 04-23-2021 cramp defense Active PO April 22, 2021 11:00pm Start: 04-23-2021 cramp defense Active PO April 23, 2021 12:00am fluticasone propionate 0.05 mg/actuat metered dose nasal spray (20 sources) Corticosteroid Start: 09-27-2017 End: 08-12-2021 Fluticasone Propionate (Flonase Allergy Relief) 50 mcg/actuation spray,suspension Active 2 NMA INTRANASAL daily as needed for allergy symptoms August 12, 2021 3:11pm Start: 09-27-2017 End: 08-12-2021 Fluticasone Propionate (Flon ase Allergy Relief) 50 mcg/actuation spray,suspension Active 2 SPRAY INTRANASAL daily August 12, 2021 3:11pm Start: 09-02-2011 FLONASE 50 MCG /ACT SUSP Take as directed (0.05 Mg/inh) FLUTICASONE PROPIONATE [id number] Fransisca Del Rosario montelukast 10 mg oral tablet (20 sources) Leukotriene Receptor Antagonist Start: 10-13-2023 take 1 tablet by mouth at bedtime Montelukast 10 mg tablet Active 10 mg PO AT BEDTIME October 13, 2023 12:00am Start: 09-26-2017 End: 04-25-2023 take 1 tablet by mouth once daily Montelukast (Singulair) 10 mg tablet Discontinued 10 mg PO daily September 26, 2017 12:00am April 25, 2023 9:04am Start: 09-02-2011 take 1 tablet by rajan th once daily SINGULAIR 10 MG TABS One tablet by mouth daily MONTELUKAST SODIUM [id number] Fransisca Del Rosario rosuvastatin calcium 20 mg oral tablet (20 sources) HMG-CoA Reductase Inhibitor Start: 09-26-2017 take 1 tablet by mouth once daily Rosuvastatin 20 mg tablet Active 20 mg PO daily September 26, 2017 12:00am Start: 09-03-2013 take 1 tablet by rajan th at bedtime CRESTOR 10 MG TABS One tablet by mouth at bedtime. ROSUVASTATIN CALCIUM [id number] Jaylan Mace MD Start: 09-03-2013 End: 09-05-2015 take 1 tablet by mouth once daily ROSUVASTATIN CALCIUM 20 MG TABS One tablet by mouth daily ROSUVASTATIN CALCIUM [id number] Jaylan Mace MD levothyroxine sodium 0.088 mg oral tablet (20 sources) l-Thyroxine Start: 04-23-2021 take 1 tablet by mouth once daily Levothyroxine 88 mcg tablet Active 88 ug PO DAILY April 23, 2021 12:00am Start: 09-26-2017 End: 04-23-2021 take 1 tablet by mouth once daily Levothyroxine (Synthroid) 100 mcg tablet Discontinued 100 ug PO daily 0 September 26, 2017 12:00am April 23, 2021 9:07am Start: 09-02-2011 take 1 tablet by rajan th once daily SYNTHROID 100 MCG TABS One tablet by mouth daily LEVOTHYROXINE SODIUM [id number] Jaylan Mace MD Start: 09-02-2011 take 0.088 mg by rajan th once daily SYNTHROID 88 MCG TABS 0.088Mg One tablet by mouth daily LEVOTHYROXINE SODIUM [id number] Jaylan Mace MD Start: 09-02-2011 take 1 tablet by rajan th once daily SYNTHROID 100 MCG TABS One tablet by mouth daily LEVOTHYROXINE SODIUM [id number] Fransisca M Carin ubiquinol 100 mg oral capsule (3 sources) Start: 12-21-2024 take 1 capsule by mouth twice daily Coq10 (Ubiquinol) (Qunol Donnell Coq10) 100 mg capsule Active 100 mg PO TWICE A DAY December 21, 2024 12:00am valACYclovir 500 mg oral tablet (3 sources) Herpesvirus Nucleoside Analog DNA Polymerase Inhibitor, Herpes Simplex Virus Nucleoside Analog DNA Polymerase Inhibitor, Herpes Zoster Virus Nucleoside Analog DNA Polymerase Inhibitor Start: 12-21-2024 take 1 tablet by mouth every twelve hours Valacyclovir 500 mg tablet Active 500 mg PO Q12H December 21, 2024 12:00am Completed/Discontinued Medications Medication Drug Class(es) Dates Sig (Normalized) Sig (Original) aspirin 81 mg delayed release oral tablet (9 sources) Platelet Aggregation Inhibitor, Nonsteroidal Anti-inflammatory Drug Start: 10-18-2022 End: 04-25-2023 Aspirin (Adult Low Dose Aspirin) 81 mg tablet,delayed release (DR/EC) Discontinued 81 mg PO DAILY October 18, 2022 12:00am April 25, 2023 9:04am atorvastatin 20 mg oral tablet (2 sources) HMG-CoA Reductase Inhibitor Start: 09-29-2011 take 1 tablet by mouth once daily LIPITOR 20 MG TABS One tablet by mouth daily ATORVASTATIN CALCIUM [id number] Kaylen Bowles, RN cholecalciferol 0.125 mg oral capsule (15 sources) Vitamin D Start: 04-23-2021 End: 08-12-2021 take 1 capsule by mouth once daily Cholecalciferol (Vitamin D3) 125 mcg (5,000 unit) capsule Discontinued 125 ug PO DAILY April 23, 2021 12:00am August 12, 2021 3:11pm 1 ml denosumab 60 mg/ml prefilled syringe (20 sources) RANK Ligand Inhibitor Start: 04-23-2021 End: 04-25-2023 Denosumab 60 mg/mL syringe Discontinued 60 mg SC every 6 months 07 04April 22, 2022 10:26am April 25, 2023 9:08am Start: 04-23-2021 End: 04-25-2023 Denosumab Discontinued 60 MG SC every 6 months April 22, 2022 10:26am April 25, 2023 9:08am magnesium plus zinc (15 sources) Start: 04-23-2021 End: 08-12-2021 magnesium plus zinc Disconti nued PO April 23, 2021 8:12am August 12, 2021 3:11pm Start: 04-23-2021 End: 08-12-2021 magnesium plus zinc Disconti nued PO 0 April 23, 2021 12:00am August 12, 2021 3:11pm Start: 04-23-2021 End: 08-12-2021 magnesium plus zinc Disconti nued PO April 22, 2021 11:00pm August 12, 2021 2:11pm Start: 04-23-2021 End: 08-12-2021 magnesium plus zinc Disconti nued PO April 23, 2021 12:00am August 12, 2021 3:11pm mecobalamin 5 mg disintegrating oral tablet (20 sources) Start: 08-12-2021 End: 10-13-2023 take 1 tablet by mouth once daily Mecobalamin (Vitamin B12) 5,000 mcg tablet,disintegrating Discontinued 5000 ug PO DAILY August 12, 2021 3:11pm October 13, 2023 1:33pm Start: 04-23-2021 End: 08-12-2021 Mecobalamin (Vitamin B12) 5, 000 mcg tablet,disintegrating Discontinued ug PO April 23, 2021 12:00am August 12, 2021 3:13pm Start: 04-23-2021 End: 08-12-2021 Mecobalamin (Vitamin B12) Di scontinued MCG PO April 23, 2021 12:00am August 12, 2021 3:13pm yann collado (20 sources) Start: 08-12-2021 End: 10-18-2022 yann collado Discontinued 3 {tbl } PO DAILY 0 August 12, 2021 3:12pm October 18, 2022 9:26am Start: 08-12-2021 End: 10-18-2022 yann collado Discontinued 3 {tbl } PO DAILY August 12, 2021 3:12pm October 18, 2022 9:26am Start: 08-12-2021 End: 10-18-2022 take 3 tablets by mouth once daily yann collado Discontinued 3 TABLET PO DAILY August 12, 2021 2:12pm October 18, 2022 8:26am Start: 08-12-2021 End: 10-18-2022 take 3 tablets by mouth once daily yann collado Discontinued 3 TABLET PO DAILY August 12, 2021 3:12pm October 18, 2022 9:26am Start: 08-12-2021 take 3 tablets by mo uth once daily yann collado Active 3 TABLET PO DAILY August 12, 2021 2:12pm Start: 08-12-2021 take 3 tablets by mo uth once daily yann collado Active 3 TABLET PO DAILY August 12, 2021 3:12pm Start: 04-23-2021 End: 08-12-2021 yann collado Discontinued PO Apr 8:11am August 12, 2021 3:13pm Start: 04-23-2021 End: 08-12-2021 yann collado Discontinued PO 0 O ctober 2020 12:00am August 12, 2021 3:13pm Start: 04-23-2021 End: 08-12-2021 yann collado Discontinued PO Apr 11:00pm August 12, 2021 2:13pm Start: 04-23-2021 End: 08-12-2021 yann collado Discontinued PO Apr 12:00am August 12, 2021 3:13pm pravastatin sodium 40 mg oral tablet (6 sources) HMG-CoA Reductase Inhibitor Start: 09-07-2012 take 1 tablet by mouth at bedtime PRAVASTATIN SODIUM 40 MG TABS One tablet by mouth at bedtime. PRAVASTATIN SODIUM [id number] Jaylan Mace MD Start: 09-02-2011 End: 09-07-2011 take 1 tablet by mouth at bedtime PRAVASTATIN SODIUM 40 MG TABS One tablet by mouth at bedtime. PRAVASTATIN SODIUM [id number] Jaylan Mace MD ubidecarenone 50 mg oral cap jaspreet (15 sources) Start: 04-23-2021 End: 10-13-2023 Coenzyme Q10 (Co Q-10) 50 mg capsule Discontinued 50 mg PO DAILY April 23, 2021 12:00am October 13, 2023 1:33pm Problems Active Problems Problem Classification Problem Date Documented Da te Episodic/Chronic Cardiac dysrhythmias (20 sources) Paroxysmal tachycardia; Translations: [Ventricular premature beats] Onset: 09-02-2011 09-02-2011 Chronic Cardiac dysrhythmias (20 sources) Palpitations; Translations: [Tachycardia] Onset: 09-02-2011 09-02-2011 Episodic Disorders of lipid metabolism (20 sources) Hyperlipidemia; Translations: [Pure hypercholesterolemia ] Onset: 09-02-2011 09-02-2011 Chronic Nutritional deficiencies (1 source) Vitamin D deficiency, unspecified; Translations: [Vitamin D deficiency, unspecified] Onset: 12-19-2024 Chronic Osteoporosis (20 sources) Osteoporosis; Translations: [Age-related osteoporosis without current pathological fracture] Onset: 10-29-2024 Chronic Other aftercare (11 sources) Patient encounter status; Translations: [Other 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 exterminator helper (current) drug therapy] 09-26-2017 Episodic Other aftercare (4 sources) Long-term current use of drug therapy; Translations: [Other termite exterminator helper (current) drug therapy] 10-03-2023 Episodic Other circulatory disease (13 sources) Disorder of carotid artery; Translations: [Disorder of arteries and arterioles, unspecified] 10-18-2022 Chronic Other circulatory disease (2 sources) Disorder of arteries and arterioles, unspecified; Translations: [Unspecified disorders of arteries and arterioles] 10-18-2022 Chronic Other circulatory disease (15 sources) Carotid bruit; Translations: [Other specified symptoms and signs involving the circulatory and respiratory systems] 08-12-2021 Episodic Other circulatory disease (3 sources) Other specified symptoms and signs involving the circulatory and respiratory systems; Translations: [Other symptoms involving cardiovascular system] Episodic Other gastrointestinal disorders (4 sources) Spurious diarrhea - overflow; Translations: [Diarrhea, unspecified] 12-21-2024 Episodic Other gastrointestinal disorders (4 sources) Constipation; Translations: [Constipation, unspecified] 12-21-2024 Episodic Other screening for suspected conditions (not mental disorders or infectious disease) (1 source) Encounter for screening mammogram for malignant neoplasm of breast; Translations: [Encounter for screening mammogram for malignant neoplasm of breast] Onset: 01-17-2025 Episodic Thyroid disorders (19 sources) Iatrogenic hypothyroidism; 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] Onset: 09-02-2011 09-02-2011 Chronic Past or Other Problems Problem Classification Problem Date Documented Da te Episodic/Chronic Malaise and fatigue (1 source) Other fatigue; Translations: [Other fatigue] Onset: 07-13-2024 Episodic Other acquired deformities (2 sources) Mallet finger; Translations: [Mallet finger of right finger(s)] Onset: 03-10-2016 03-21-2016 Episodic Other aftercare (2 sources) Other termite exterminator helper (current) drug therapy; Translations: [Other termite exterminator helper (current) drug therapy] Onset: 09-02-2011 09-02-2011 Episodic Other lower respiratory disease (4 sources) Snoring; Translations: [Dyspnea] Onset: 09-02-2011 09-03-2013 Episodic Other nutritional; endocrine; and metabolic disorders (8 sources) Body mass index (BMI) 25.0-25.9, adult; Translations: [Body mass index (BMI) 26.0-26.9, adult] Onset: 09-03-2013 Resolved: 09-03-2016 09-03-2016 Episodic Results Test Name Value Interpretation Reference Range Facility MR/[facility] 02-12-2025 MR/PAT.[facility] Medical Records Department [address] [place] [address] PAT - Anesthesia 02/12/25 1731 MR#: [id number] Acct: [id number] Name: RACHEL HUDSON Rep #: [id number] : 1950 74 From: Isaak Tan MD PCP: Dr. Rashel Lopez MD Status:PRE SDC Y Race: C Location: EN Pre-Assessment Diagnosis/Proposed Procedure Planned Operative Procedure(s): COLONOSCOPY Anesthesia History Anesthesia History - hand twister: Anesthesia History - hand twister Hx Hospitalization No 02/12/25 16:57 Any Problems With Anesthesia Yes: PONV 02/12/25 16:57 Cholinesterase deficiency No 02/12/25 16:57 You/Your Family Experience No 02/12/25 16:57 fever (hyperthermia) with Relationship Recent Exposure to Contagious Disease Does patient have nerve No 02/12/25 16:57 stimulator Patient instructed to have device shut off --Does patient have Pacemaker or ICD? When Was Last Pacemaker Check QUESTION #4 FULL TEXT: You/Your Family Experience fever (hyperthermia) with Anesthesia Last Oral Intake Last Oral intake: Last Oral Intake NPO since Meds taken in AM with sips of water? Meds patient instructed to take am of surgery PONV PONV - hand twister: PONV - hand twister Female Yes 02/12/25 16:57 HX of Motion Sickness No 02/12/25 16:57 HX of N/V After Surgery Yes 02/12/25 16:57 Non-Smoker Yes 02/12/25 16:57 Duration of Surgery greater No 02/12/25 16:57 than 60 minutes Number of Risk Factors 3 02/12/25 16:57 PONV Score Moderate Risk 02/12/25 16:57 Height Weight Height Weight: Anesthesia: Height Weight Height 5 ft 7 in 10/08/24 07:55 Respiratory Assessment Respiratory Assessment - hand twister: Respiratory Tract Infection Hx - hand twister Hx Respiratory Tract Infection No 02/12/25 16:57 STOP Sleep Apnea STOP Sleep Apnea - hand twister: STOP Sleep Apnea - hand twister Hx Hypertension No 02/12/25 16:57 Hx Sleep Apnea No 02/12/25 16:57 CPAP BIPAP Do you snore loudly (louder No 02/12/25 16:57 than talking or can be heard Do you often feel tired/ No 02/12/25 16:57 fatigued/ sleepy during daytime? Has anyone observed you stop No 02/12/25 16:57 breathing during sleep? STOP Results Negative 02/12/25 16:57 QUESTION #5 FULL TEXT : Do you snore loudly (louder than talking or can be heard through closed doors)? 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 Specify any problems Hx of Preganancy in last 3 No 02/12/25 16:57 Months Nurse Filling Out Transfusion BHARATH 02/12/25 16:57 Questions: Date: 02/12/25 02/12/25 16:57 Time: 16:59 02/12/25 16:57 Patient unable to answer at this time (ie. confused, unrespo /Reproduction History /Reproductive History - hand twister: /Reproductive Hx- hand twister Hx Now No 02/12/25 16:57 Gestational Age (in weeks): EDC: Hx Hx Para Hx Section SAB No 02/12/25 16:57 PFSH Medical History (Updated 02/12/25 @ 17:08 by Trinity Grant) Cancer Depression Thyroid disease Arthritis Fatty liver Easy bruising Syncope Seasonal allergies PONV (postoperative nausea and vomiting) Former smoker Leg cramps Cardiology follow-up encounter Diarrhea Carotid artery disease Carotid bruit Osteoporosis Pure hypercholesterolemia Ectopic atrial tachycardia Premature atrial contraction Premature ventricular contraction balloon sinusplasty Hyperlipidemia Paroxysmal tachycardia Tachycardia 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 Iatrogenic hypothyroidism Home Medications ???Medication ???Instructions ???Recorded ???Last Taken ???Type rosuvastatin 20 mg tablet 20 mg PO QDAY 09/26/17 Unknown His tory citalopram 20 mg tablet 20 mg PO QDAY 09/27/17 Unknown His tory fluticasone propionate 50 2 spray intranasal QDAY PRN Unknown History mcg/actuation nasal (more content not included)... Normal [facility] Thyroid Stim Hormone (TSH)on 01-31-2025 TSH 0.730 uIU/mL Normal 0.300-4.200 [facility] Comment on above: Performed By: #### L [phone] #### [facility] Laboratory [address] [place], [address] Gastroenterology Visit Repor ton 01-21-2025 Gastroenterology Visit Report [facility] Gastroenterology [address] [place] [address] OFFICE VISIT Date of Service: 01/21/25 MR#: [id number] Acct: [id number] Name: RACHEL HUDSON Rep #: [id number] : 1950 Provider: BECCA hernandez Age/Sex: 74/F Location: [facility] Status: Signed Intake Vital Signs 10/08/24 07:55 Height 5 ft 7 in Intake Visit Reasons: 1 M FU Allergies nitrofurantoin (From Macrodantin) Allergy (Verified 01/21/25 12:51) Hives bupropion (From Wellbutrin) Adverse Reaction (Severe, Verified 01/21/25 12:51) Unknown estrogens, conjugated (From Premarin) Adverse Reaction (Severe, Verified 01/21/25 12:51) Unknown teriparatide (From Forteo) Adverse Reaction (Severe, Verified 01/21/25 12:51) Unknown venlafaxine (From Effexor) Adverse Reaction (Severe, Verified 01/21/25 12:51) Unknown Medications ???Medication ???Instructions ???Recorded ???Confirmed ???Type rosuvastatin 20 mg tablet 20 mg PO QDAY 09/26/17 01/21/25 Hi story citalopram 20 mg tablet 20 mg PO QDAY 09/27/17 01/21/25 Hi story levothyroxine 88 mcg tablet 88 mcg PO DAILY 04/23/21 01/21/25 History fluticasone propionate 50 2 spray intranasal QDAY PRN 01/21/25 History mcg/actuation nasal allergy symptoms spray,suspension (Flonase Allergy Relief) denosumab 60 mg/mL subcutaneous 60 mg subcut [id number] #1 mL 01/21/25 Rx syringe montelukast 10 mg tablet 10 mg PO QHS 10/13/23 01/21/25 His tory coQ10 (ubiquinol) 100 mg capsule 100 mg PO BID 12/21/24 01/21/25 Hi story (Qunol Donnell CoQ10) valacyclovir 500 mg tablet 500 mg PO Q12H 12/21/24 01/21/25 H istory Have you fallen in the past year?: No PFSH Medical History Diarrhea Carotid artery disease Carotid bruit Osteoporosis Pure hypercholesterolemia Ectopic atrial tachycardia Premature atrial contraction Premature ventricular contraction balloon sinusplasty Shortness of breath Snoring Hyperlipidemia Paroxysmal tachycardia Tachycardia 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 Iatrogenic hypothyroidism Surgical History History of basal cell carcinoma excision History of bilateral cataract extraction H/O arthroscopy of right knee exploratory lap History of total abdominal hysterectomy History of tonsillectomy and adenoidectomy History of lumpectomy of left breast Family History Father CAD (coronary artery disease) Mother Diabetes Heart disease Sister Hypertension HLD (hyperlipidemia) Myocardial infarction CAD (coronary artery disease) Social History Smoking Status: Former smoker how long ago did patient quit smokin alcohol intake: never substance use type: does not use caffeine: Yes Type: coffee Number of servings: 4 and tea what type of physical activity do you participate in: none seatbelt use: always do you feel safe at home: Yes HPI HPI Details: RACHEL HUDSON, is a 74 F who presents to the office today for . 12.21.24 OV establishment with [facility] regarding concerns for terrible diarrhea. She reports a history of constipation but describes daily BMs of firm stool. She denies any period of days between BMs. Her stools became liquid and pencil thin a little over a month ago, but maybe 4, she's not sure exactly. She reports having an increased amount of abdominal straining to have a BM and noted recent blood while cleaning herself. She states that she's only had 1 episode of bleeding straight from her rectum. She is experiencing an increased amount of flatulence and feels that she cannot safely release the air unless she's sitting on the toilet as she has had stool incontinence recently. She states that she has several first cousins, an aunt, and an uncle who have colon cancer; and a brother with esophageal cancer. She started taking a fiber supplement 2 days ago. 6 KUB No evidence of acute abdominal pathology. (Nonobstructive bowel gas pattern. Moderate stool burden without distention on my personal review of image.) 7 OV She reports that her BMs are better, more frequent with increased volume but still small pieces of formed stool. She states that she is taking Benefiber and Miralax together at bedtime. She rarely sees any blood in her stool as her hemorrhoids are healing. She complains of heartburn, excess gas and belching after every meal. She is asking if she can use Liquid IV drink supplement for electrolyte balance in water instead of a sports drink. Screening colonoscopy 02.14.25. ROS Const Constitutional: No fatigue, fever(s) or weight change ENT ENT: No difficulty swallowin (more content not included)... Normal [facility] Breast imaging reportOrdered By: Catrina Keating on 01-14-2025 Study report [facility] Imaging Services [address] [place] [address] SCRN MAMM (CAD)W/EILEEN BILAT MR#: [id number] Acct: [id number] Name: RACHEL HUDSON Rep #: [id number] : 1950 F 74 From: Burton Garay MD PCP: Dr. Rashel Lopez MD Status: REG C CAR Study:SCRN MAMM (CAD)W/EILEEN BILAT Date of Exa m: 01/14/25 Exam# [id number] Ordering Dr: Rashel Lopez MD EXAM: SCRN MAMM (CAD)W/EILEEN BILAT DATE: 01/14/2025 CLINICAL HISTORY: F, Age 74 y/o , SCREENING TECHNIQUE: SCRN MAMM (CAD)W/EILEEN BILAT COMPARISON: Prior exam(s) were compared FINDINGS: TISSUE DENSITY: The breasts are heterogeneously dense, which may obscure small masses. Bilateral Breast Mammographic Findings: No suspicious masses, calcifications or other abnormalities are identified. BI/SCRN MAMM (CAD)W/EILEEN BILAT IMPRESSION: No mammographic evidence of malignancy in either breast OVERALL FINAL ASSESSMENT BI-RADS 1: NEGATIVE. RECOMMENDATION: Routine annual follow-up in 1 Year A letter with findings and recommendations will be mailed to the patient. Reading Location: [id number] CC: Dr. Rashel Lopez MD ~ Event Producer: Signed [facility] SCRN MAMM (CAD)W/EILEEN BILATo n 01-14-2025 SCRN MAMM (CAD)W/EILEEN BILAT [facility] Imaging Services [address] [place], [place] [address] SCRN MAMM (CAD)W/EILEEN BILAT MR#: [id number] Acct: [id number] Name: RACHEL HUDSON Rep #: [id number] : 1950 F 74 From: Catrian Baum i, MD PCP: Dr. Rashel Lopez MD Status: [facility] Study: SCRN MAMM (CAD)W/EILEEN BILAT Date of Exam: 01/01 10/26 Exam# [id number] Ordering Dr: Rashel Lopez MD EXAM: SCRN MAMM (CAD)W/EILEEN BILAT DATE: 01/14/2025 CLINICAL HISTORY: F, Age 74 y/o , SCREENING TECHNIQUE: SCRN MAMM (CAD)W/EILEEN BILAT COMPARISON: Prior exam(s) were compared FINDINGS: TISSUE DENSITY: The breasts are heterogeneously dense, which may obscure small masses. Bilateral Breast Mammographic Findings: No suspicious masses, calcifications or other abnormalities are identified. BI/SCRN MAMM (CAD)W/EILEEN BILAT IMPRESSION: No mammographic evidence of malignancy in either breast OVERALL FINAL ASSESSMENT BI-RADS 1: NEGATIVE. RECOMMENDATION: Routine annual follow-up in 1 Year A letter with findings and recommendations will be mailed to the patient. Reading Location: [id number] CC: Dr. Rashel Lopez MD Event Producer: Signed Normal [facility] Gastroenterology Visit Repor ton 12-21-2024 Gastroenterology Visit Report [facility] [address] [facility] [place] [address] OFFICE VISIT Date of Service: 12/21/24 MR#: [id number] Acct: [id number] Name: RACHEL HUDSON Rep #: [id number] : 1950 Provider: BECCA hernandez Age/Sex: 74/F Location: [facility] Status: Signed Intake Vital Signs 10/08/24 07:55 Height 5 ft 7 in Intake Visit Reasons: DIARRHEA - HEART HISTORY Allergies nitrofurantoin (From Macrodantin) Allergy (Verified 12/21/24 13:00) Hives bupropion (From Wellbutrin) Adverse Reaction (Severe, Verified 12/21/24 13:00) Unknown estrogens, conjugated (From Premarin) Adverse Reaction (Severe, Verified 12/21/24 13:00) Unknown teriparatide (From Forteo) Adverse Reaction (Severe, Verified 12/21/24 13:00) Unknown venlafaxine (From Effexor) Adverse Reaction (Severe, Verified 12/21/24 13:00) Unknown Medications ???Medication ???Instructions ???Recorded ???Confirmed ???Type rosuvastatin 20 mg tablet 20 mg PO QDAY 09/26/17 12/21/24 Hi story citalopram 20 mg tablet 20 mg PO QDAY 09/27/17 12/21/24 Hi story levothyroxine 88 mcg tablet 88 mcg PO DAILY 04/23/21 12/21/24 History fluticasone propionate 50 2 spray intranasal QDAY PRN 12/21/24 History mcg/actuation nasal allergy symptoms spray,suspension (Flonase Allergy Relief) denosumab 60 mg/mL subcutaneous 60 mg subcut [id number] #1 mL 12/21/24 Rx syringe montelukast 10 mg tablet 10 mg PO QHS 10/13/23 12/21/24 His tory coQ10 (ubiquinol) 100 mg capsule 100 mg PO BID 12/21/24 12/21/24 Hi story (Qunol Donnell CoQ10) valacyclovir 500 mg tablet 500 mg PO Q12H 12/21/24 12/21/24 H istory Have you fallen in the past year?: No PFSH Medical History Diarrhea Carotid artery disease Carotid bruit Osteoporosis Pure hypercholesterolemia Ectopic atrial tachycardia Premature atrial contraction Premature ventricular contraction balloon sinusplasty Shortness of breath Snoring Hyperlipidemia Paroxysmal tachycardia Tachycardia Palpitations correction use of drug Iatrogenic hypothyroidism Surgical History History of basal cell carcinoma excision History of bilateral cataract extraction H/O arthroscopy of right knee exploratory lap History of total abdominal hysterectomy History of tonsillectomy and adenoidectomy History of lumpectomy of left breast Family History Father CAD (coronary artery disease) Mother Diabetes Heart disease Sister Hypertension HLD (hyperlipidemia) Myocardial infarction CAD (coronary artery disease) Social History Smoking Status: Former smoker how long ago did patient quit smokin alcohol intake: never substance use type: does not use caffeine: Yes Type: coffee Number of servings: 4 and tea what type of physical activity do you participate in: none seatbelt use: always do you feel safe at home: Yes HPI HPI Details: RACHEL HUDSON, is a 74 F who presents to the office today for establishment with [facility] regarding concerns for terrible diarrhea. She reports a history of constipation but describes daily BMs of firm stool. She denies any period of days between BMs. Her stools became liquid and pencil thin a little over a month ago, but maybe 4, she's not sure exactly. She reports having an increased amount of abdominal straining to have a BM and noted recent blood while cleaning herself. She states that she's only had 1 episode of bleeding straight from her rectum. She is experiencing an increased amount of flatulence and feels that she cannot safely release the air unless she's sitting on the toilet as she has had stool incontinence recently. She denies difficulty chewing and swallowing, cough, throat clearing, heartburn, reflux, nausea, emesis, abdominal pain, cramping, and melena. She reports that her last colonoscopy was over 10 years ago where she did have a single polyp removed. She states that she has several first cousins, an aunt, and an uncle who have colon cancer; and a brother with esophageal cancer. She started taking a fiber supplement 2 days ago. 12.13.24 KUB No evidence of acute abdominal pathology. (Nonobstructive bowel gas pattern. Moderate stool burden without distention on my personal review of image.) ROS Const Constitutional: No chills, fatigue, fever(s) or weight change Eyes Eyes: No change in vision ENT ENT: No abnormal hearing or difficulty swallowing Resp Respiratory: No cough Cardio Cardiology: No chest pain at rest, chest pain with exertion or leg pain with exertion Gastro GI: Positive for diarrhea, incontinent of (more content not included)... Normal [facility] Abd Inc Decub and/or Erecton 12-13-2024 Abd Inc Decub and/or Erect [facility] Imaging Services [address] [place] [address] Abd Inc Decub and/or Erect MR#: [id number] Acct: [id number] Name: RACHEL HUDSON Rep #: [id number] : 1950 F 74 From: Sudhir Meneses MD PCP: Dr. Rashel Lopez MD Status: REG CLI Study: Abd Inc Decub and/or Erect Date of Exam: 12/13 Exam# [id number] Ordering Dr: Rashel Lopez MD PROCEDURE: ABD INC DECUB AND/OR ERECT 12/13/2024 REASON FOR EXAM: DIARRHEA TECHNIQUE: Single view abdomen. COMPARISON: None. FINDINGS: There is a nonobstructive bowel gas pattern. There are no abnormal soft tissue calcifications project over either renal outline or along the path of either ureter. There are calcified injection granulomas in the left buttock. There is dextroscoliosis of the thoracolumbar spine. RAD/Abd Inc Decub and/or Erect IMPRESSION: No evidence of acute abdominal pathology. Reading Location: [place] [address] CC: Dr. Rashel Lopez MD Event Producer: Signed Normal [facility] Absolute lymphocyte countOrd ered By: [facility] on 12-13-2024 Lymphocytes Auto (Unsp spec) [#/Vol] 1.51 10*3/uL 0.83-4.51 [facility] Absolute neutrophil countOrd ered By: [facility] on 12-13-2024 Neutrophils (Bld) [#/Vol] 3.7 10*3/uL 2.0-7.7 [facility] Anion gap in Serum or Plasma Ordered By: Rashel Lopez on 12-13-2024 Anion gap [Moles/Vol] 12 mmol/L 5-15 [facility] Automated lymphocyte count a s percentage of total leukocytesOrdered By: [facility] John on 12-13-2024 Lymphocytes/100 WBC Auto (Unsp spec) 25.9 % 19-41 [facility] BUN/creatinine ratioOrdered By: [facility] on 12-13-2024 Urea nitrogen/Creatinine [Mass ratio] 21.2 mg/mg High 10-20 [facility] Basophil percentageOrdered B y: Rashel Lopez on 12-13-2024 Basophils/100 WBC (Bld) 0.7 % 0-1 [facility] Bilirubin, totalOrdered By: Rashel Lopez on 12-13-2024 Bilirubin [Mass/Vol] 0.42 mg/dL 0.00-1.30 [facility] CBC W/Diff, Automatedon 12-02 Absolute Lymph 1.51 X10 3/uL Normal 0.83-4.51 [facility] Comment on above: Performed By: #### L 100.0100, L506.1001, L501.9520, L500.4050 ####[facility] [address] [place], [address] Absolute Neut 3.7 X10 3/uL Normal 2.0-7.7 [facility] Comment on above: Performed By: #### L 100.0100, L506.1001, L501.9520, L500.4050 ####[facility] [address] [place], [address] Basophils/100 WBC (Bld) 0.7 % Normal 0-1 [facility] Comment on above: Performed By: #### L 100.0100, L506.1001, L501.9520, L500.4050 ####[facility] [address] [place], [address] Eosinophils/100 WBC (Bld) 1.9 % Normal 0-5 [facility] Comment on above: Performed By: #### L 100.0100, L506.1001, L501.9520, L500.4050 ####[facility] [address] [place], [address] Erythrocyte distribution width (RBC) [Ratio] 13.1 % Normal 11.6-14.6 [facility] Comment on above: Performed By: #### L 100.0100, L506.1001, L501.9520, L500.4050 ####[facility] [address] [place], [address] Hematocrit (Bld) [Volume fraction] 42.3 % Normal 37-47 [facility] Comment on above: Performed By: #### L 100.0100, L506.1001, L501.9520, L500.4050 ####[facility] [address] [place], [address] Hemoglobin (Bld) [Mass/Vol] 14.6 g/dL Normal 12.0-15.0 [facility] Comment on above: Performed By: #### L 100.0100, L506.1001, L501.9520, L500.4050 ####[facility] [address] [place], [address] IG% 0.200 Normal 0.0-0.9 [facility] Comment on above: Result Comment: IG% - Immature Granulocytes (promyelocytes, myelocytes and metamyelocytes) > 1% indicates that a LEFT SHIFT is Present. Performed By: #### L 100.0100, L506.1001, L501.9520, L500.4050 ####[facility] [address] [place], [address] Lymphocytes/100 WBC (Bld) 25.9 % Normal 19-41 [facility] Comment on above: Performed By: #### L 100.0100, L506.1001, L501.9520, L500.4050 ####[facility] [address] [place], [address] MCH (RBC) [Entitic mass] 33.6 pg High 27.0-32.0 [facility] Comment on above: Performed By: #### L 100.0100, L506.1001, L501.9520, L500.4050 ####[facility] [address] [place], [address] MCHC (RBC) [Mass/Vol] 34.5 g/dL Normal 32-36 [facility] Comment on above: Performed By: #### L 100.0100, L506.1001, L501.9520, L500.4050 ####[facility] [address] [place], [address] MCV (RBC) [Entitic vol] 97.5 fL Normal 81-99 [facility] Comment on above: Performed By: #### L 100.0100, L506.1001, L501.9520, L500.4050 ####[facility] [address] [place], [address] Monocytes/100 WBC (Bld) 8.0 % Normal 0-10 W [facility] Comment on above: Performed By: #### L 100.0100, L506.1001, L501.9520, L500.4050 ####[facility] [address] [place], [address] Neutrophils/100 WBC (Bld) 63.3 % Normal 47-70 [facility] Comment on above: Performed By: #### L 100.0100, L506.1001, L501.9520, L500.4050 ####[facility] [address] [place], [address] Nucleated RBC (Bld) [#/Vol] 0 10*3/uL Normal 0-5 [facility] Comment on above: Performed By: #### L 100.0100, L506.1001, L501.9520, L500.4050 ####[facility] [address] [place], [address] Platelet mean volume (Bld) [Entitic vol] 8.8 fL Normal 6.2-12.0 [facility] Comment on above: Performed By: #### L 100.0100, L506.1001, L501.9520, L500.4050 ####[facility] [address] [place], [address] Platelets (Bld) [#/Vol] 304 10*3/uL Normal 150-450 [facility] Comment on above: Performed By: #### L 100.0100, L506.1001, L501.9520, L500.4050 ####[facility] [address] [place], [address] RBC (Bld) [#/Vol] 4.34 10*6/uL Normal 4.2-5.4 [facility] Comment on above: Performed By: #### L 100.0100, L506.1001, L501.9520, L500.4050 ####[facility] [address] [place], [address] RDW SD 47.0 fl High 35.1-43.9 [facility] Comment on above: Performed By: #### L 100.0100, L506.1001, L501.9520, L500.4050 ####[facility] [address] [place], [address] WBC (Bld) [#/Vol] 5.8 10*3/uL Normal 4.4-11.0 [facility] Comment on above: Performed By: #### L 100.0100, L506.1001, L501.9520, L500.4050 ####[facility] [address] [place], [address] Carbon dioxide, total [Moles /volume] in Central venous bloodOrdered By: Rashel Lopez on 12-13-2024 CO2 [Moles/Vol] 23.7 mmol/L 21.0-32.0 [facility] Chloride assayOrdered By: Tae Lopez on 12-13-2024 Chloride [Moles/Vol] 102 mmol/L 98-108 [facility] Comprehensive Metabolic Prof ilon 12-13-2024 Albumin [Mass/Vol] 4.5 g/dL Normal 3.4-4.8 [facility] Comment on above: Performed By: #### L 100.0100, L506.1001, L501.9520, L500.4050 ####[facility] [address] [place], [address] Albumin/Globulin [Mass ratio] 1.7 {ratio} Normal 0.9-2.4 [facility] Comment on above: Performed By: #### L 100.0100, L506.1001, L501.9520, L500.4050 ####[facility] [address] [place], [address] ALK PHOS 51 U/L Normal 35-104 [facility] Comment on above: Performed By: #### L 100.0100, L506.1001, L501.9520, L500.4050 ####[facility] [address] [place], [address] ALT [Catalytic activity/Vol] 26 U/L Normal <=34 [facility] Comment on above: Performed By: #### L 100.0100, L506.1001, L501.9520, L500.4050 ####[facility] [address] [place], [address] AST [Catalytic activity/Vol] 32 U/L Normal <=31 [facility] Comment on above: Performed By: #### L 100.0100, L506.1001, L501.9520, L500.4050 ####[facility] [address] [place], [address] Bilirubin [Mass/Vol] 0.42 mg/dL Normal 0.00-1.30 [facility] Comment on above: Performed By: #### L 100.0100, L506.1001, L501.9520, L500.4050 ####[facility] [address] [place], [address] BUN/CRE 21.2 RATIO High 10-20 [facility] Comment on above: Performed By: #### L 100.0100, L506.1001, L501.9520, L500.4050 ####[facility] [address] [place], [address] Calcium [Mass/Vol] 9.8 mg/dL Normal 7.6-11.0 [facility] Comment on above: Performed By: #### L 100.0100, L506.1001, L501.9520, L500.4050 ####[facility] [address] [place], [address] Chloride [Moles/Vol] 102 mmol/L Normal 98-108 [facility] Comment on above: Performed By: #### L 100.0100, L506.1001, L501.9520, L500.4050 ####[facility] [address] [place], [address] CO2 [Moles/Vol] 23.7 mmol/L Normal 21.0-32.0 [facility] Comment on above: Performed By: #### L 100.0100, L506.1001, L501.9520, L500.4050 ####[facility] [address] [place], [address] Creatinine [Mass/Vol] 0.83 mg/dL Normal 0.70-1.20 [facility] Comment on above: Performed By: #### L 100.0100, L506.1001, L501.9520, L500.4050 ####[facility] [address] [place], [address] GAP 12 Normal 5-15 [facility] Comment on above: Performed By: #### L 100.0100, L506.1001, L501.9520, L500.4050 ####[facility] [address] [place], [address] GFR/1.73 sq M.predicted among non-blacks MDRD (S/P/Bld) [Vol rate/Area] 73 mL/min/{1.73_m2} Normal >60 [facility] Comment on above: Result Comment: mL/m in/1.73m2 CKD-EPI Creatinine Equation (2020) Performed By: #### L 100.0100, L506.1001, L501.9520, L500.4050 ####[facility] [address] [place], [address] Globulin (S) [Mass/Vol] 2.7 g/dL Normal 2.2-4.2 [facility] Comment on above: Performed By: #### L 100.0100, L506.1001, L501.9520, L500.4050 ####[facility] [address] [place], [address] Glucose [Mass/Vol] 98 mg/dL Normal 70-99 [facility] Comment on above: Performed By: #### L 100.0100, L506.1001, L501.9520, L500.4050 ####[facility] [address] [place], [address] Potassium [Moles/Vol] 4.8 mmol/L Normal 3.3-5.1 [facility] Comment on above: Performed By: #### L 100.0100, L506.1001, L501.9520, L500.4050 ####[facility] [address] [place], [address] Sodium [Moles/Vol] 137 mmol/L Normal 133-145 [facility] Comment on above: Performed By: #### L 100.0100, L506.1001, L501.9520, L500.4050 ####[facility] [address] [place], [address] T PROT 7.2 g/dL Normal 5.9-8.4 [facility] Comment on above: Performed By: #### L 100.0100, L506.1001, L501.9520, L500.4050 ####[facility] [address] [place], [address] Urea nitrogen [Mass/Vol] 18 mg/dL Normal 4-19 [facility] Comment on above: Performed By: #### L 100.0100, L506.1001, L501.9520, L500.4050 ####[facility] [address] [place], [address] Eosinophil percentageOrdered By: Rashel Lopez on 12-13-2024 Eosinophils/100 WBC (Bld) 1.9 % 0-5 [facility] Erythrocyte distribution wid th ratioOrdered By: [facility] on 12-13-2024 Erythrocyte distribution width (RBC) [Ratio] 13.1 % 11.6-14.6 [facility] Erythrocyte distribution wid th standard deviationOrdered By: Rashel Lopez 12-13-2024 Erythrocyte distribution width (RBC) [Ratio] 47.0 fl High 35.1-43.9 [facility] Glomerular filtration rate ( GFR) estimation/1.73 sq m using serum, plasma, or whole bOrdered By: Rashel Lopez 12-13-2024 GFR/1.73 sq M.predicted among non-blacks MDRD (S/P/Bld) [Vol rate/Area] 73 mL/min/{1.73_m2} >60 [facility] Comment on above: mL/min/1.73m2 CKD-EP I Creatinine Equation (2020) Hematocrit Auto (Bld) [Volum e fraction]Ordered By: Rashel John 12-13-2024 Hematocrit (Bld) [Volume fraction] 42.3 % 37-47 [facility] Hemoglobin measurementOrdere d By: Rashel Lopez 12-13-2024 Hemoglobin (Bld) [Mass/Vol] 14.6 g/dL 12.0-15.0 [facility] Immature granulocytes/100 WB C Auto (Bld)Ordered By: Rashel Lopez 12-13-2024 Immature granulocytes/100 WBC (Bld) 0.200 % 0.0-0.9 [facility] Comment on above: IG% - Immature Granu locytes (promyelocytes, myelocytes and metamyelocytes) > 1% indicates that a LEFT SHIFT is Present. Laboratory - Chemistry and C hemistry - challengeOrdered By: Rashel Lopez 12-13-2024 AST [Catalytic activity/Vol] 32 U/L <32 [facility] MCV (mean corpuscular volume ) determinationOrdered By: Rashel Lopez 12-13-2024 MCV (RBC) [Entitic vol] 97.5 fL 81-99 [facility] Mean corpuscular hemoglobin (MCH) determinationOrdered By: Rashel Lopez on 12-13-2024 MCH (RBC) [Entitic mass] 33.6 pg High 27.0-32.0 [facility] Mean corpuscular hemoglobin concentration (MCHC) determinationOrdered By: Rashel Lopez on 12-13-2024 MCHC (RBC) [Mass/Vol] 34.5 g/dL 32-36 [facility] Mean platelet volume determi nationOrdered By: Rashel Lopez on 12-13-2024 Platelet mean volume (Bld) [Entitic vol] 8.8 fL 6.2-12.0 [facility] Monocyte percentageOrdered B y: Rashel Lopez on 12-13-2024 Monocytes/100 WBC (Bld) 8.0 % 0-10 [facility] Neutrophil percentageOrdered By: Rashel Lopez on 12-13-2024 Neutrophils/100 WBC (Bld) 63.3 % 47-70 [facility] Nucleated red blood cell per centageOrdered By: Rashel Lopez on 12-13-2024 Nucleated RBC/100 WBC (Bld) [Ratio] 0 % 0-5 [facility] Platelet countOrdered By: Tae Lopez on 12-13-2024 Platelets (Bld) [#/Vol] 304 10*3/uL 150-450 [facility] Potassium measurement (mass/ volume)Ordered By: Rashel Lopez 12-13-2024 Potassium (Unsp spec) [Mass/Vol] 4.8 mmol/L 3.3-5.1 [facility] RBC Auto (Bld) [#/Vol]Ordere d By: Rashel Lopez on 12-13-2024 RBC (Bld) [#/Vol] 4.34 10*6/uL 4.2-5.4 [facility] Serum creatinine measurement (mass/volume)Ordered By: Rashel Lopez 12-13-2024 Creatinine [Mass/Vol] 0.83 mg/dL 0.70-1.20 [facility] Serum globulin measurementOr dered By: Rashel Lopez 12-13-2024 Globulin (S) [Mass/Vol] 2.7 g/dL 2.2-4.2 [facility] Serum glucose measurement (m ass/volume)Ordered By: Rashel Lopez 5 Glucose [Mass/Vol] 98 mg/dL 70-99 [facility] Serum or plasma alanine lorenzana otransferase (ALT) measurementOrdered By: Rashel Lopez on 12-13-2024 ALT [Catalytic activity/Vol] 26 U/L <35 [facility] Serum or plasma albumin marvin urement (mass/volume)Ordered By: Rashel Lopez on 12-13-2024 Albumin [Mass/Vol] 4.5 g/dL 3.4-4.8 [facility] Serum or plasma albumin/glob ulin mass ratioOrdered By: Rashel Lopez on 12-13-2024 Albumin/Globulin [Mass ratio] 1.7 {ratio} 0.9-2.4 [facility] Serum or plasma alkaline rey sphatase measurementOrdered By: Rashel Lopez 12-13-2024 ALP [Catalytic activity/Vol] 51 U/L 35-104 [facility] Serum or plasma calcium marvin urement (mass/volume)Ordered By: Rashel Lopez 12-13-2024 Calcium [Mass/Vol] 9.8 mg/dL 7.6-11.0 [facility] Serum or plasma urea nitroge n measurement (mass/volume)Ordered By: Rashel Lopez 12-13-2024 Urea nitrogen [Mass/Vol] 18 mg/dL 4-19 [facility] Sodium levelOrdered By: Rashel Lopez 12-13-2024 Sodium [Moles/Vol] 137 mmol/L 133-145 [facility] TSH DL <= 0.005 mIU/L QnOrde red By: Rashel Lopez on 12-13-2024 TSH Qn 0.259 uIU/mL Low 0.300-4.200 [facility] Thyroid Stim Hormone (TSH)on 12-13-2024 TSH 0.259 uIU/mL Low 0.300-4.200 [facility] Comment on above: Performed By: #### L 100.0100, L506.1001, L501.9520, L500.4050 ####[facility] [id number] [place], [place], [id number] Total proteinOrdered By: Rashel Lopez on 12-13-2024 Protein [Mass/Vol] 7.2 g/dL 5.9-8.4 [facility] Vitamin D,25 Hydroxyon 12-13 Vitamin D 25-OH 57.0 ng/mL Normal 30-100 [facility] Comment on above: Result Comment: [place] min D Status Deficiency: <20 ng/mL (50nmol/L) Insufficiency: 20-30 ng/mL (50-75 nmol/L) Sufficiency: 30-100 ng/mL (75-250 nmol/L) Toxicity: >100 ng/mL (>250 nmol/L) Performed By: #### L 100.0100, L506.1001, L501.9520, L500.4050 ####[facility] [id number] [place], [address] White blood cell (WBC) count Ordered By: Rashel Lopez on 12-13-2024 WBC (Bld) [#/Vol] 5.8 10*3/uL 4.4-11.0 [facility] Office Visit Reporton 2024 Office Visit Report [facility] [address] [place] [address] OFFICE VISIT Date of Service: 10/29/24 MR#: [id number] Acct: [id number] Patient: RACHEL HUDSON Rep #: [id number] : 1950 Provider: Phan De Oliveira Age/Sex: 74/F [place] [facility] [place]: Signed Intake Vital Signs 04/30/24 08:45 10/08/24 07:55 Height 5 ft 7 in 5 ft 7 in Weight: 141 lb 8 oz 143 lb BMI 22.1 22.4 BP 99/62 105/65 Blood Pressure Location Lt brachial Position Sitting Respiration 18 Pulse 74 84 Pulse Source Monitor Monitor Pulse Oximetry (%) 95 95 Oxygen Delivery Method room air Intake Visit Reasons: Prolia - B B Chief Complaint: Osteporosis Allergies nitrofurantoin (From Macrodantin) Allergy (Verified 10/08/24 11:29) Hives bupropion (From Wellbutrin) Adverse Reaction (Severe, Verified 10/08/24 11:29) Unknown estrogens, conjugated (From Premarin) Adverse Reaction (Severe, Verified 10/08/24 11:29) Unknown teriparatide (From Forteo) Adverse Reaction (Severe, Verified 10/08/24 11:29) Unknown venlafaxine (From Effexor) Adverse Reaction (Severe, Verified 10/08/24 11:29) Unknown Have you fallen in the past year?: No Office Procedures Injections Procedure performed by: Jorge Jade Lot number: [id number] Diplomatic Officer: [employer] date: 01/31/27 Dose of injection: 1 mL Site of injection: Sub-Q Medication Given: Yes Is this a patient provided medication?: No Office Meds Prolia 60 mg/mL subcutaneous syringe Performing Provider: Michael Regalado MD Performing Location: [facility] Administered by: Jorge Jade RN on 10/29/24 08:50 Dose Route Admin Location Dispensed Lot Number Expiration Date [facility] Man ufacturer 60 mg subcut Left Arm 1 mL [id number] 01/31/27 28921-150-24 [employer] Assessment and Plan Assessment and Plan (1) Osteoporosis: Status: Chronic Qualifiers: Osteoporosis type: age-related Presence of current pathological fracture: without current pathological fracture Qualified Code(s): M81.0 - Age-related osteoporosis without current pathological fracture Orders: Orders Prolia Injection Today M81.0 - Age-related osteoporosis without current pathological fracture Clinical Quality Measures Falls Risk Screening/Assistive Devices Have you fallen in the past year?: No 10/29/24 1132 Date Michael Regalado MD Cosign Signature: Date (if applicable) CC: Normal [facility] Cardiology Visit Reporton Cardiology Visit Report [facility] [address] [place] [address]. [address] [place] [address] OFFICE VISIT Date of Service: 10/08/24 MR#: [id number] Acct: [id number] Name: RACHEL HUDSON Rep #: [id number] : 1950 Provider: BECCA salinas Age/Sex: 74/F [place] [facility] [place] Status: Signed HPI HPI History of Present Illness Details: This is a 74-year-old white female who presents today for outpatient cardiovascular follow-up visit. She has a history of underlying paroxysmal tachycardia, PACs, PVCs, and hyperlipidemia. From a cardiac standpoint, the patient is doing well. She does acknowledge occasional palpitations- nothing recent. She denies any chest pain, pressure or heaviness. She denies SOB, Orthopnea, and PND. She does not have bleeding issues; no blood in urine, stool, or nosebleeds. She denies any decrease in energy level, myalgias, or claudication. She does not have edema, or sudden weight gain. She denies lightheadedness, dizziness, syncopal or near syncopal episodes, and headaches. Intake Vital Signs 04/30/24 08:45 10/08/24 07:55 Height 5 ft 7 in 5 ft 7 in Weight: 143 lb BMI 22.4 BP 105/65 Blood Pressure Location Lt brachial Position Sitting Respiration 18 Pulse 84 Pulse Source Monitor Pulse Oximetry (%) 95 Intake Visit Reasons: 1 [place] [employer] Director Required: No Is patient in pain?: No Allergies nitrofurantoin (From Macrodantin) Allergy (Verified 10/08/24 11:29) Hives bupropion (From Wellbutrin) Adverse Reaction (Severe, Verified 10/08/24 11:29) Unknown estrogens, conjugated (From Premarin) Adverse Reaction (Severe, Verified 10/08/24 11:29) Unknown teriparatide (From Forteo) Adverse Reaction (Severe, Verified 10/08/24 11:29) Unknown venlafaxine (From Effexor) Adverse Reaction (Severe, Verified 10/08/24 11:29) Unknown Medications ???Medication ???Instructions ???Recorded ???Confirmed ???Type rosuvastatin 20 mg tablet 20 mg PO QDAY 09/26/17 10/08/24 Hi story citalopram 20 mg tablet 20 mg PO QDAY 09/27/17 10/08/24 Hi story levothyroxine 88 mcg tablet 88 mcg PO DAILY 04/23/21 10/08/24 History fluticasone propionate 50 2 spray intranasal QDAY PRN 10/08/24 History mcg/actuation nasal allergy symptoms spray,suspension (Flonase Allergy Relief) denosumab 60 mg/mL subcutaneous 60 mg subcut Q4ELQAMA #1 mL 10/08/24 Rx syringe montelukast 10 mg tablet 10 mg PO QHS 10/13/23 10/08/24 His tory Have you fallen in the past year?: No PFSH Medical History (Reviewed 10/08/24 @ 12:25 by Shy Edmonds [employer] INSTALLER, [employer] INSTALLER-C) Carotid artery disease Carotid bruit Osteoporosis Pure hypercholesterolemia Ectopic atrial tachycardia Premature atrial contraction Premature ventricular contraction balloon sinusplasty Shortness of breath Snoring Hyperlipidemia Paroxysmal tachycardia Tachycardia 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 Iatrogenic hypothyroidism Surgical History (Reviewed 10/08/24 @ 12:25 by Shy Edmonds [employer]OW AIR CONDITIONER INSTALLER, W[employer]OW AIR CONDITIONER INSTALLER-C) History of basal cell carcinoma excision History of bilateral cataract extraction H/O arthroscopy of right knee exploratory lap History of total abdominal hysterectomy History of tonsillectomy and adenoidectomy History of lumpectomy of left breast Family History (Reviewed 10/08/24 @ 12:26 by Shy Edmonds [employer]OW AIR CONDITIONER INSTALLER, WINDOW AIR CONDITIONER INSTALLER-C) Father CAD (coronary artery disease) Mother Diabetes Heart disease Sister Hypertension HLD (hyperlipidemia) Myocardial infarction CAD (coronary artery disease) Social History (Reviewed 10/08/24 @ 12:26 by Shy Edmonds [employer]OW AIR CONDITIONER INSTALLER, W[employer]OW AIR CONDITIONER INSTALLER-C) Smoking Status: Former smoker how long ago did patient quit smokin alcohol intake: never substance use type: does not use caffeine: Yes Type: coffee Number of servings: 4 and tea what type of physical activity do you participate in: none seatbelt use: always do you feel safe at home: Yes ROS Const Const: Negative for fatigue, weakness, headache(s) or frequent falls Eyes Eyes: Negative for blurry vision ENT ENT: Negative for headache(s), dizziness or Nosebleed/epistaxis Cardio Chest Pain: No Palpitations: Yes (occasional-nothing recent) Edema: None Muscle aches with walking: None Resp Respiratory: Negative for SOB with activity, SOB at rest or SOB orthopnea SOB lying down GI GI: Negative nausea, vomiting, heartburn, bright, red blood in stools or black,tarry stools : Negative for hematuria Neuro Neuro: Negative for dizziness, lightheadedness, near syncope, syncope, frequent falls, headache(s), weakness or blurry vision Endo Endo: Negative for fatigue Cardiology Exam Const Appearance: cooperative and no acute distress Nutritional Appearance: average body habitus Orientation: alert and oriented x3 Head Head: normal (more content not included)... Normal [facility] CBC W/Diff, Automatedon 12 0-2023 Absolute Lymph 1.91 X10 3/uL Normal 0.83-4.51 [facility] Comment on above: Performed By: #### L 506.1000, L500.4050, L501.9520, L100.0100 #### [facility] [address] [place], [address] Absolute Neut 4.1 X10 3/uL Normal 2.0-7.7 [facility] Comment on above: Performed By: #### L 506.1000, L500.4050, L501.9520, L100.0100 #### [facility] [address] [place], [address] Basophils/100 WBC (Bld) 0.3 % Normal 0-1 [facility] Comment on above: Performed By: #### L 506.1000, L500.4050, L501.9520, L100.0100 #### [facility] [address] [place], [address] Eosinophils/100 WBC (Bld) 1.5 % Normal 0-5 [facility] Comment on above: Performed By: #### L 506.1000, L500.4050, L501.9520, L100.0100 #### [facility] [address] [place], [address] Erythrocyte distribution width (RBC) [Ratio] 14.2 % Normal 11.6-14.6 [facility] Comment on above: Performed By: #### L 506.1000, L500.4050, L501.9520, L100.0100 #### [facility] [address] [place], [address] Hematocrit (Bld) [Volume fraction] 38.4 % Normal 37-47 [facility] Comment on above: Performed By: #### L 506.1000, L500.4050, L501.9520, L100.0100 #### [facility] [address] [place], [address] Hemoglobin (Bld) [Mass/Vol] 13.1 g/dL Normal 12.0-15.0 [facility] Comment on above: Performed By: #### L 506.1000, L500.4050, L501.9520, L100.0100 #### [facility] [address] [place], [address] IG% 0.300 Normal 0.0-0.9 [facility] Comment on above: Result Comment: IG% - Immature Granulocytes (promyelocytes, myelocytes and metamyelocytes) > 1% indicates that a LEFT SHIFT is Present. Performed By: #### L 506.1000, L500.4050, L501.9520, L100.0100 #### [facility] [address] [place], [address] Lymphocytes/100 WBC (Bld) 28.9 % Normal 19-41 [facility] Comment on above: Performed By: #### L 506.1000, L500.4050, L501.9520, L100.0100 #### [facility] [address] [place], [address] MCH (RBC) [Entitic mass] 33.0 pg High 27.0-32.0 [facility] Comment on above: Performed By: #### L 506.1000, L500.4050, L501.9520, L100.0100 #### [facility] [address] [place], [address] MCHC (RBC) [Mass/Vol] 34.1 g/dL Normal 32-36 [facility] Comment on above: Performed By: #### L 506.1000, L500.4050, L501.9520, L100.0100 #### [facility] [address] [place], [address] MCV (RBC) [Entitic vol] 96.7 fL Normal 81-99 [facility] Comment on above: Performed By: #### L 506.1000, L500.4050, L501.9520, L100.0100 #### [facility] [address] [place], [address] Monocytes/100 WBC (Bld) 6.8 % Normal 0-10 [facility] Comment on above: Performed By: #### L 506.1000, L500.4050, L501.9520, L100.0100 #### [facility] [address] [place], [address] Neutrophils/100 WBC (Bld) 62.2 % Normal 47-70 [facility] Comment on above: Performed By: #### L 506.1000, L500.4050, L501.9520, L100.0100 #### [facility] [address] [place], [address] Nucleated RBC (Bld) [#/Vol] 0 10*3/uL Normal 0-5 [facility] Comment on above: Performed By: #### L 506.1000, L500.4050, L501.9520, L100.0100 #### [facility] [address] [place], [address] Platelet mean volume (Bld) [Entitic vol] 9.0 fL Normal 6.2-12.0 [facility] Comment on above: Performed By: #### L 506.1000, L500.4050, L501.9520, L100.0100 #### [facility] [address] [place], [address] Platelets (Bld) [#/Vol] 307 10*3/uL Normal 150-450 [facility] Comment on above: Performed By: #### L 506.1000, L500.4050, L501.9520, L100.0100 #### [facility] [address] [place], [address] RBC (Bld) [#/Vol] 3.97 10*6/uL Low 4.2-5.4 [facility] Comment on above: Performed By: #### L 506.1000, L500.4050, L501.9520, L100.0100 #### [facility] [address] [place], [address] RDW SD 50.7 fl High 35.1-43.9 [facility] Comment on above: Performed By: #### L 506.1000, L500.4050, L501.9520, L100.0100 #### [facility] [address] [place], [address] WBC (Bld) [#/Vol] 6.6 10*3/uL Normal 4.4-11.0 [facility] Comment on above: Performed By: #### L 506.1000, L500.4050, L501.9520, L100.0100 #### [facility] [address] [place], [address] [facility] 06-12-2024 Albumin [Mass/Vol] 3.9 g/dL Normal 3.2-5.0 [facility] Comment on above: Performed By: #### L 506.1000, L500.4050, L501.9520, L100.0100 #### [facility] [address] [place], [address] Albumin/Globulin [Mass ratio] 1.2 {ratio} Normal 0.9-2.4 [facility] Comment on above: Performed By: #### L 506.1000, L500.4050, L501.9520, L100.0100 #### [facility] [address] [place], [address] ALK P 46 U/L Normal 45-117 [facility] Comment on above: Performed By: #### L 506.1000, L500.4050, L501.9520, L100.0100 #### [facility] [address] [place], [address] ALT [Catalytic activity/Vol] 34 U/L Normal 13-56 [facility] Comment on above: Performed By: #### L 506.1000, L500.4050, L501.9520, L100.0100 #### [facility] [address] [place], [address] AST [Catalytic activity/Vol] 28 U/L Normal 15-37 [facility] Comment on above: Performed By: #### L 506.1000, L500.4050, L501.9520, L100.0100 #### [facility] [address] [place], [address] Bilirubin [Mass/Vol] 0.40 mg/dL Normal 0.20-1.00 [facility] Comment on above: Result Comment: For patients on eltrombopag therapy, use of Dimension [place] TBIL is not recommended. Performed By: #### L 506.1000, L500.4050, L501.9520, L100.0100 #### [facility] [address] [place], [address] BUN/CRE 23.0 RATIO High 10-20 [facility] Comment on above: Performed By: #### L 506.1000, L500.4050, L501.9520, L100.0100 #### [facility] [address] [place], [address] CA,Total 9.4 mg/dL Normal 8.5-10.1 [facility] Comment on above: Performed By: #### L 506.1000, L500.4050, L501.9520, L100.0100 #### [facility] [address] [place], [address] Chloride [Moles/Vol] 101 mmol/L Normal 98-107 [facility] Comment on above: Performed By: #### L 506.1000, L500.4050, L501.9520, L100.0100 #### [facility] [address] [place], [address] CO2 [Moles/Vol] 25.0 mmol/L Normal 21.0-32.0 [facility] Comment on above: Performed By: #### L 506.1000, L500.4050, L501.9520, L100.0100 #### [facility] [address] [place], [address] Creatinine [Mass/Vol] 0.74 mg/dL Normal 0.55-1.02 [facility] Comment on above: Result Comment: The validity of the calculated GFR GFRAA in patients over 70 years has not been determined. Clinical correlation is essential. Performed By: #### L 506.1000, L500.4050, L501.9520, L100.0100 #### [facility] [address] [place], [address] EST GFR - AA 98 mL/min Normal >60 [facility] Comment on above: Result Comment: Afri can Hungarian GFR Calc Performed By: #### L 506.1000, L500.4050, L501.9520, L100.0100 #### [facility] [address] [place], [address] GAP 5 Normal 5-15 [facility] Comment on above: Performed By: #### L 506.1000, L500.4050, L501.9520, L100.0100 #### [facility] [address] [place], [address] GFR/1.73 sq M.predicted among non-blacks MDRD (S/P/Bld) [Vol rate/Area] 81 mL/min/{1.73_m2} Normal >60 [facility] Comment on above: Result Comment: Non- GFR Calc Performed By: #### L 506.1000, L500.4050, L501.9520, L100.0100 #### [facility] [address] [place], [address] Globulin (S) [Mass/Vol] 3.3 g/dL Normal 2.2-4.2 [facility] Comment on above: Performed By: #### L 506.1000, L500.4050, L501.9520, L100.0100 #### [facility] [address] [place], [address] Glucose [Mass/Vol] 96 mg/dL Normal 74-106 [facility] Comment on above: Performed By: #### L 506.1000, L500.4050, L501.9520, L100.0100 #### [facility] [address] [place], [address] Potassium [Moles/Vol] 4.1 mmol/L Normal 3.5-5.1 [facility] Comment on above: Performed By: #### L 506.1000, L500.4050, L501.9520, L100.0100 #### [facility] [address] [place], [address] Sodium [Moles/Vol] 131 mmol/L Low 136-145 [facility] Comment on above: Performed By: #### L 506.1000, L500.4050, L501.9520, L100.0100 #### [facility] [address] [place], [address] T PROT 7.2 g/dL Normal 6.4-8.2 [facility] Comment on above: Performed By: #### L 506.1000, L500.4050, L501.9520, L100.0100 #### [facility] [address] [place], [address] Urea nitrogen [Mass/Vol] 17 mg/dL Normal 7-18 [facility] Comment on above: Performed By: #### L 506.1000, L500.4050, L501.9520, L100.0100 #### [facility] [address], [address] Thyroid Stim Hormone (TSH)on 06-12-2024 TSH 0.691 uIU/mL Normal 0.358-3.740 [facility] Comment on above: Performed By: #### L 506.1000, L500.4050, L501.9520, L100.0100 #### [facility] [address] [place], [address] Vitamin D,25 Hydroxyon 06-12 Vitamin D 25-OH 43.3 ng/mL Normal [facility] Comment on above: Result Comment: [place] min D 25(OH) Status Range Deficiency <20 ng/mL (50nmol/L) Insufficiency 20 - 30 ng/mL (50 - 75 nmol/L) Sufficiency 30 - 100 ng/mL (75 - 250 nmol/L) Toxicity >100 ng/mL (>250 nmol/L) Performed By: #### L 506.1000, L500.4050, L501.9520, L100.0100 #### [facility] [address] [place], [address] Endocrinology Visit Reporton 04-30-2024 Endocrinology Visit Report [facility] [address] [place], [place] [address] OFFICE VISIT Date of Service: 04/30/24 MR#: [id number] Acct: [id number] Name: RACHEL HUDSON Rep #: [id number] : 1950 Provider: Phan De Oliveira Age/Sex: 73/F [place] [facility] [place]: [place]igned Intake Vital Signs 04/25/23 09:01 10/13/23 13:32 04/30/24 08:45 Height 5 ft 7 in 5 ft 7 in 5 ft 7 in Weight: 141 lb 8 oz BMI 22.1 BP 99/62 Pulse 74 Pulse Source Monitor Pulse Oximetry (%) 95 Oxygen Delivery Method room air Intake Visit Reasons: 1 Y FU Chief Complaint: Osteporosis Allergies nitrofurantoin (From Macrodantin) Allergy (Verified 10/13/23 13:32) Hives bupropion (From Wellbutrin) Adverse Reaction (Severe, Verified 10/13/23 13:32) Unknown estrogens, conjugated (From Premarin) Adverse Reaction (Severe, Verified 10/13/23 13:32) Unknown teriparatide (From Forteo) Adverse Reaction (Severe, Verified 10/13/23 13:32) Unknown venlafaxine (From Effexor) Adverse Reaction (Severe, Verified 10/13/23 13:32) Unknown Medications ???Medication ???Instructions ???Recorded ???Confirmed ???Type rosuvastatin 20 mg tablet 20 mg PO QDAY 09/26/17 04/30/24 History citalopram 20 mg tablet 20 mg PO QDAY 09/27/17 04/30/24 History levothyroxine 88 mcg tablet 88 mcg PO DAILY 04/23/21 04/30/24 History fluticasone propionate 50 2 spray intranasal QDAY PRN 08/12/21 04/30/24 History mcg/actuation nasal allergy symptoms spray,suspension (Flonase Allergy Relief) denosumab 60 mg/mL subcutaneous 60 mg subcut [id number] #1 mL 04/25/23 04/30/24 Rx syringe montelukast 10 mg tablet 10 mg PO QHS 10/13/23 04/30/24 History Have you fallen in the past year?: No PFSH Medical History Carotid artery disease Carotid bruit Osteoporosis Pure hypercholesterolemia Ectopic atrial tachycardia Premature atrial contraction Premature ventricular contraction balloon sinusplasty Shortness of breath Snoring Hyperlipidemia Paroxysmal tachycardia Tachycardia 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 Iatrogenic hypothyroidism Surgical History History of basal cell carcinoma excision History of bilateral cataract extraction H/O arthroscopy of right knee exploratory lap History of total abdominal hysterectomy History of tonsillectomy and adenoidectomy History of lumpectomy of left breast Family History Father CAD (coronary artery disease) Mother Diabetes Heart disease Sister Hypertension HLD (hyperlipidemia) Myocardial infarction CAD (coronary artery disease) Social History Smoking Status: Former smoker how long ago did patient quit smokin alcohol intake: never substance use type: does not use caffeine: Yes Type: coffee Number of servings: 4 and tea what type of physical activity do you participate in: none seatbelt use: always do you feel safe at home: Yes HPI HPI Chief Complaint: Osteporosis Details: RACHEL HUDSON, is a 73 F who presents to the office today for follow up. She has been treated in the past with Forteo and bisphosphonates. She has been on Prolia for several years. She had labs in December. Vitamin D was adequate, she isn't currently taking a supplement. No falls or fractures in the past year. ROS Const Constitutional: No fatigue, headache(s) or weight change Eyes Eyes: No change in vision ENT ENT: No abnormal hearing, dizziness/vertigo or headache(s) Cardio Cardiology: No chest pain at rest, chest pain with exertion, shortness of breath or palpitations Musc Musculoskeletal: No abnormal gait, joint pain or muscle weakness Neuro Neurology: No abnormal gait, abnormal hearing, unsteady gait/balance, dizziness or headache(s) Psych Psychiatric: No anxiety and No depression Paresh/Lymp Hematologic/Lymphatic: No easy bruising Resp Respiratory: No cough, hemoptysis or shortness of breath Gastro GI: No abdominal pain Genitourinary-Female: No blood in urine Skin Skin: No wounds Endo Endocrine: No fatigue or weight change Exam Const General: cooperative, healthy appearing, comfortable, no acute distress, well developed and not cushingoid Nutritional Appearance: well nourished Orientation: alert, awake and oriented x3 HENMT Head: normal to inspection Ears: hearing grossly normal bilaterally Nose: external nose normal Mouth: oral mucosae normal Eyes General: appearance normal, both eyes and all related structures Alignment and Position: alignment normal Periorbital: periorbital findings normal Eyelids: eyelids normal (more content not included)... Normal [facility] Absolute lymphocyte countOrd ered By: Rashel Lopez on 06-06-2023 Lymphocytes Auto (Unsp spec) [#/Vol] 2.03 10*3/uL 0.83-4.51 [facility] Basophil percentageOrdered B y: Rashel Lopez on 06-06-2023 Basophils/100 WBC (Bld) 0.4 % 0-1 [facility] Bilirubin [Mass/Vol] 0.40 mg/dL 0.20-1.00 [facility] Comment on above: For patients on eltr ombopag therapy, use of Dimension [place] TBIL is not recommended. Chloride [Moles/Vol] 105 mmol/L 98-107 [facility] Eosinophils/100 WBC (Bld) 1.0 % 0-5 [facility] Glucose [Mass/Vol] 82 mg/dL 74-106 [facility] Neutrophils (Bld) [#/Vol] 4.1 10*3/uL 2.0-7.7 [facility] Neutrophils/100 WBC (Bld) 61.3 % 47-70 [facility] Potassium [Moles/Vol] 4.2 mmol/L 3.5-5.1 [facility] Protein [Mass/Vol] 7.0 g/dL 6.4-8.2 [facility] Sodium [Moles/Vol] 135 mmol/L 136-145 [facility] WBC (Bld) [#/Vol] 6.7 10*3/uL 4.4-11.0 [facility] Blood erythrocytes count (nu mber/volume)Ordered By: Rashel Lopez on 06-06-2023 RBC (Bld) [#/Vol] 3.88 10*6/uL 4.2-5.4 [facility] Blood hemoglobin measurement (mass/volume)Ordered By: Rashel Lopez on 06-06-2023 Hemoglobin (Bld) [Mass/Vol] 12.6 g/dL 12.0-15.0 [facility] Blood lymphocytes/100 leukoc ytesOrdered By: Rashel John on 06-06-2023 Lymphocytes/100 WBC (Bld) 30.4 % 19-41 [facility] Blood monocytes/100 leukocyt esOrdered By: [facility] on 06-06-2023 Monocytes/100 WBC (Bld) 6.6 % 0-10 [facility] Blood platelet mean volumeOr dered By: Rashel John on 06-06-2023 Platelet mean volume (Bld) [Entitic vol] 9.5 fL 6.2-12.0 [facility] Determination of erythrocyte mean corpuscular volume (MCV)Ordered By: [facility] on 06-06-[facility]23 MCV (RBC) [Entitic vol] 99.0 fL 81-99 W [facility] Hematocrit Auto (Bld) [Volum e fraction]Ordered By: [facility] on 06-06-2023 Hematocrit (Bld) [Volume fraction] 38.4 % 37-47 [facility] Laboratory - Chemistry and C hemistry - challengeOrdered By: [facility] 06-06-2023 ALP [Catalytic activity/Vol] 45 U/L 45-117 [facility] ALT [Catalytic activity/Vol] 38 U/L 13-56 [facility] CO2 [Moles/Vol] 24.0 mmol/L 21.0-32.0 [facility] Globulin (S) [Mass/Vol] 3.2 g/dL 2.2-4.2 [facility] Urea nitrogen/Creatinine [Mass ratio] 19.9 mg/mg 10-20 [facility] Laboratory - Hematology and Cell countsOrdered By: [facility] on 06-06-2023 Erythrocyte distribution width (RBC) [Entitic vol] 52.4 fL 35.1-43.9 [facility] Erythrocyte distribution width (RBC) [Ratio] 14.4 % 11.6-14.6 [facility] Immature granulocytes/100 WBC (Bld) 0.300 % 0.0-0.9 [facility] Comment on above: IG% - Immature Granu locytes (promyelocytes, myelocytes and metamyelocytes) > 1% indicates that a LEFT SHIFT is Present. MCH (RBC) [Entitic mass] 32.5 pg 27.0-32.0 [facility] Nucleated RBC/100 WBC (Bld) [Ratio] 0 % 0-5 [facility] MCHC Auto (RBC) [Mass/Vol]Or dered By: Rashel Lopez on 06-06-2023 MCHC (RBC) [Mass/Vol] 32.8 g/dL 32-36 [facility] No Panel InformationOrdered By: Rsahel Lopez on 06-06-2023 Estimated GFR (MDRD) Amer 97 mL/min >60 [facility] Comment on above: GFR Calc Estimated GFR (MDRD) Non-Af Amer 80 mL/min >60 [facility] Comment on above: Non- GFR Calc Thyroid Stimulating Hormone (TSH) 1.11 uIU/mL 0.358-3.74 [facility] Vitamin D 25-Hydroxy 39.1 ng/mL [facility] Comment on above: Vitamin D 25(OH) Sta tus Range Deficiency <20 ng/mL (50nmol/L) Insufficiency 20 - 30 ng/mL (50 - 75 nmol/L) Sufficiency 30 - 100 ng/mL (75 - 250 nmol/L) Toxicity >100 ng/mL (>250 nmol/L) Platelets bldOrdered By: Rashel Lopez on 06-06-2023 Platelets (Bld) [#/Vol] 270 10*3/uL 150-450 [facility] Serum or plasma albumin marvin urement (mass/volume)Ordered By: Rashel Lopez on 06-06-2023 Albumin [Mass/Vol] 3.8 g/dL 3.2-5.0 [facility] Serum or plasma albumin/glob ulin mass ratioOrdered By: Rashel Lopez on 06-06-2023 Albumin/Globulin [Mass ratio] 1.2 {ratio} 0.9-2.4 [facility] Serum or plasma calcium marvin urement (mass/volume)Ordered By: Rashel Lopez on 06-06-2023 Calcium [Mass/Vol] 8.5 mg/dL 8.5-10.1 [facility] Serum or plasma creatinine m easurement (mass/volume)Ordered By: Rashel Lopez on 06-06-2023 Creatinine [Mass/Vol] 0.75 mg/dL 0.55-1.02 [facility] Comment on above: The validity of the calculated GFR & GFRAA in patients over 70 years has not been determined. Clinical correlation is essential. Serum or plasma urea nitroge n measurement (mass/volume)Ordered By: Rashel Lopez on 06-06-2023 Urea nitrogen [Mass/Vol] 15 mg/dL 7-18 [facility] Thin prep Papanicolaou smear with manual screeningOrdered By: Rashel Lopez on 06-06-2023 Thin prep Papanicolaou smear with manual screening 31 U/L 15-37 [facility] Thin prep Papanicolaou smear with manual screening 6 5-15 [facility] Absolute lymphocyte countOrd ered By: Rashel Lopez on 12-06-2022 Lymphocytes Auto (Unsp spec) [#/Vol] 1.39 10*3/uL 0.83-4.51 [facility] Basophil percentageOrdered B y: Rashel Lopez on 12-06-2022 Basophils/100 WBC (Bld) 0.4 % 0-1 [facility] Bilirubin [Mass/Vol] 0.50 mg/dL 0.20-1.00 [facility] Comment on above: For patients on eltr ombopag therapy, use of Dimension [place] TBIL is not recommended. Chloride [Moles/Vol] 103 mmol/L 98-107 [facility] Eosinophils/100 WBC (Bld) 1.0 % 0-5 [facility] Glucose [Mass/Vol] 87 mg/dL 74-106 [facility] Neutrophils (Bld) [#/Vol] 3.3 10*3/uL 2.0-7.7 [facility] Neutrophils/100 WBC (Bld) 63.9 % 47-70 [facility] Potassium [Moles/Vol] 4.4 mmol/L 3.5-5.1 [facility] Protein [Mass/Vol] 7.5 g/dL 6.4-8.2 [facility] Sodium [Moles/Vol] 135 mmol/L 136-145 [facility] WBC (Bld) [#/Vol] 5.1 10*3/uL 4.4-11.0 [facility] Blood erythrocytes count (nu mber/volume)Ordered By: Rashel John on 12-06-2022 RBC (Bld) [#/Vol] 4.09 10*6/uL 4.2-5.4 [facility] Blood hemoglobin measurement (mass/volume)Ordered By: Rashel Lopez on 12-06-2022 Hemoglobin (Bld) [Mass/Vol] 13.6 g/dL 12.0-15.0 [facility] Blood lymphocytes/100 leukoc ytesOrdered By: Rashel Lopez on 12-06-2022 Lymphocytes/100 WBC (Bld) 27.1 % 19-41 [facility] Blood monocytes/100 leukocyt esOrdered By: [facility] on 12-06-2022 Monocytes/100 WBC (Bld) 7.4 % 0-10 [facility] Blood platelet mean volumeOr dered By: Rashel John on 12-06-2022 Platelet mean volume (Bld) [Entitic vol] 9.2 fL 6.2-12.0 [facility] Determination of erythrocyte mean corpuscular volume (MCV)Ordered By: Rashel Lopez on 12-06-2022 MCV (RBC) [Entitic vol] 101.2 fL 81-99 W [facility] Hematocrit Auto (Bld) [Volum e fraction]Ordered By: [facility] on 12-06-2022 Hematocrit (Bld) [Volume fraction] 41.4 % 37-47 [facility] Laboratory - Chemistry and C hemistry - challengeOrdered By: [facility] 12-06-2022 ALP [Catalytic activity/Vol] 52 U/L 45-117 [facility] ALT [Catalytic activity/Vol] 40 U/L 13-56 [facility] CO2 [Moles/Vol] 25.0 mmol/L 21.0-32.0 [facility] Globulin (S) [Mass/Vol] 3.7 g/dL 2.2-4.2 [facility] Urea nitrogen/Creatinine [Mass ratio] 14.1 mg/mg 10-20 [facility] Laboratory - Hematology and Cell countsOrdered By: Rashel Lopez on 12-06-2022 Erythrocyte distribution width (RBC) [Entitic vol] 51.5 fL 35.1-43.9 [facility] Erythrocyte distribution width (RBC) [Ratio] 13.8 % 11.6-14.6 [facility] Immature granulocytes/100 WBC (Bld) 0.200 % 0.0-0.9 [facility] Comment on above: IG% - Immature Granu locytes (promyelocytes, myelocytes and metamyelocytes) > 1% indicates that a LEFT SHIFT is Present. MCH (RBC) [Entitic mass] 33.3 pg 27.0-32.0 [facility] Nucleated RBC/100 WBC (Bld) [Ratio] 0 % 0-5 [facility] MCHC Auto (RBC) [Mass/Vol]Or dered By: Rashel Lopez on 12-06-2022 MCHC (RBC) [Mass/Vol] 32.9 g/dL 32-36 [facility] No Panel InformationOrdered By: Rashel Lopez on 12-06-2022 Estimated GFR (MDRD) Amer 93 mL/min >60 [facility] Comment on above: GFR Calc Estimated GFR (MDRD) Non-Af Amer 76 mL/min >60 [facility] Comment on above: Non- GFR Calc Thyroid Stimulating Hormone (TSH) 0.72 uIU/mL 0.358-3.74 [facility] Vitamin D 25-Hydroxy 44.7 ng/mL [facility] Comment on above: Vitamin D 25(OH) Sta tus Range Deficiency <20 ng/mL (50nmol/L) Insufficiency 20 - 30 ng/mL (50 - 75 nmol/L) Sufficiency 30 - 100 ng/mL (75 - 250 nmol/L) Toxicity >100 ng/mL (>250 nmol/L) Platelets bldOrdered By: Rashel Lopez on 12-06-2022 Platelets (Bld) [#/Vol] 280 10*3/uL 150-450 [facility] Serum or plasma albumin marvin urement (mass/volume)Ordered By: Rashel Lopez on 12-06-2022 Albumin [Mass/Vol] 3.8 g/dL 3.2-5.0 [facility] Serum or plasma albumin/glob ulin mass ratioOrdered By: Rashel Lopez on 12-06-2022 Albumin/Globulin [Mass ratio] 1.0 {ratio} 0.9-2.4 [facility] Serum or plasma calcium marvin urement (mass/volume)Ordered By: Rashel John on 12-06-2022 Calcium [Mass/Vol] 9.3 mg/dL 8.5-10.1 [facility] Serum or plasma creatinine m easurement (mass/volume)Ordered By: Rashel John on 12-06-2022 Creatinine [Mass/Vol] 0.78 mg/dL 0.55-1.02 [facility] Comment on above: The validity of the calculated GFR & GFRAA in patients over 70 years has not been determined. Clinical correlation is essential. Serum or plasma urea nitroge n measurement (mass/volume)Ordered By: Rashel [facility] on 12-06-2022 Urea nitrogen [Mass/Vol] 11 mg/dL 7-18 [facility] Thin prep Papanicolaou smear with manual screeningOrdered By: Rashel John on 12-06-2022 Thin prep Papanicolaou smear with manual screening 28 U/L 15-37 [facility] Thin prep Papanicolaou smear with manual screening 7 5-15 [facility] Absolute lymphocyte counton 06-03-2022 Lymphocytes Auto (Unsp spec) [#/Vol] 2.06 10*3/uL 0.83-4.51 [facility] Work Phone: Basophil percentageon 2021 Basophils/100 WBC (Bld) 0.3 % 0-1 [facility] Work Phone: Bilirubin [Mass/Vol] 0.40 mg/dL 0.20-1.00 [facility] Work Phone: Comment on above: For patients on eltr ombopag therapy, use of Dimension [place] TBIL is not recommended. Chloride [Moles/Vol] 105 mmol/L 98-107 [facility] Work Phone: Eosinophils/100 WBC (Bld) 2.0 % 0-5 [facility] Work Phone: Glucose [Mass/Vol] 83 mg/dL 74-106 [facility] Work Phone: Neutrophils (Bld) [#/Vol] 3.5 10*3/uL 2.0-7.7 [facility] Work Phone: Neutrophils/100 WBC (Bld) 56.7 % 47-70 [facility] Work Phone: Potassium [Moles/Vol] 4.1 mmol/L 3.5-5.1 [facility] Work Phone: Protein [Mass/Vol] 6.8 g/dL 6.4-8.2 [facility] Work Phone: Sodium [Moles/Vol] 137 mmol/L 136-145 [facility] Work Phone: WBC (Bld) [#/Vol] 6.1 10*3/uL 4.4-11.0 [facility] Work Phone: Blood erythrocytes count (nu mber/volume)on 06-03-2022 RBC (Bld) [#/Vol] 3.99 10*6/uL 4.2-5.4 [facility] Work Phone: Blood hemoglobin measurement (mass/volume)on 06-03-2022 Hemoglobin (Bld) [Mass/Vol] 12.7 g/dL 12.0-15.0 [facility] Work Phone: Blood lymphocytes/100 leukoc yteson 06-03-2022 Lymphocytes/100 WBC (Bld) 33.7 % 19-41 [facility] Work Phone: Blood monocytes/100 leukocyt eson 06-03-2022 Monocytes/100 WBC (Bld) 7.0 % 0-10 [facility] Work Phone: Blood platelet mean volumeon 06-03-2022 Platelet mean volume (Bld) [Entitic vol] 9.9 fL 6.2-12.0 [facility] Work Phone: Determination of erythrocyte mean corpuscular volume (MCV)on 06-03-2022 MCV (RBC) [Entitic vol] 97.5 fL 81-99 [facility] Work Phone: Hematocrit Auto (Bld) [Volum e fraction]on 06-03-2022 Hematocrit (Bld) [Volume fraction] 38.9 % 37-47 [facility] Work Phone: Laboratory - Chemistry and C hemistry - challengeon 06-03-2022 ALP [Catalytic activity/Vol] 41 U/L 45-117 [facility] Work Phone: ALT [Catalytic activity/Vol] 48 U/L 13-56 [facility] Work Phone: CO2 [Moles/Vol] 25.0 mmol/L 21.0-32.0 [facility] Work Phone: Globulin (S) [Mass/Vol] 3.2 g/dL 2.2-4.2 [facility] Work Phone: Urea nitrogen/Creatinine [Mass ratio] 23.2 mg/mg 10-20 [facility] Work Phone: Laboratory - Hematology and Cell countson 06-03-2022 Erythrocyte distribution width (RBC) [Entitic vol] 49.7 fL 35.1-43.9 [facility] Work Phone: Erythrocyte distribution width (RBC) [Ratio] 13.9 % 11.6-14.6 [facility] Work Phone: Immature granulocytes/100 WBC (Bld) 0.300 % 0.0-0.9 [facility] Work Phone: Comment on above: IG% - Immature Granu locytes (promyelocytes, myelocytes and metamyelocytes) > 1% indicates that a LEFT SHIFT is Present. MCH (RBC) [Entitic mass] 31.8 pg 27.0-32.0 [facility] Work Phone: Nucleated RBC/100 WBC (Bld) [Ratio] 0 % 0-5 [facility] Work Phone: MCHC Auto (RBC) [Mass/Vol]on 06-03-2022 MCHC (RBC) [Mass/Vol] 32.6 g/dL 32-36 [facility] Work Phone: No Panel Informationon 06-03 Estimated GFR (MDRD) Amer 100 mL/min >60 [facility] Work Phone: Comment on above: GFR Calc Estimated GFR (MDRD) Non-Af Amer 83 mL/min >60 [facility] Work Phone: Comment on above: Non- GFR Calc Thyroid Stimulating Hormone (TSH) 0.67 uIU/mL 0.358-3.74 [facility] Work Phone: Vitamin D 25-Hydroxy 51.1 ng/mL [facility] Work Phone: Comment on above: Vitamin D 25(OH) Sta tus Range Deficiency <20 ng/mL (50nmol/L) Insufficiency 20 - 30 ng/mL (50 - 75 nmol/L) Sufficiency 30 - 100 ng/mL (75 - 250 nmol/L) Toxicity >100 ng/mL (>250 nmol/L) Platelets bldon 06-03-2022 Platelets (Bld) [#/Vol] 252 10*3/uL 150-450 [facility] Work Phone: Serum or plasma albumin marvin urement (mass/volume)on 06-03-2022 Albumin [Mass/Vol] 3.6 g/dL 3.2-5.0 [facility] Work Phone: Serum or plasma albumin/glob ulin mass ratioon 06-03-2022 Albumin/Globulin [Mass ratio] 1.1 {ratio} 0.9-2.4 [facility] Work Phone: Serum or plasma calcium marvin urement (mass/volume)on 06-03-2022 Calcium [Mass/Vol] 8.8 mg/dL 8.5-10.1 [facility] Work Phone: Serum or plasma creatinine m easurement (mass/volume)on 06-03-2022 Creatinine [Mass/Vol] 0.73 mg/dL 0.55-1.02 [facility] Work Phone: Comment on above: The validity of the calculated GFR & GFRAA in patients over 70 years has not been determined. Clinical correlation is essential. Serum or plasma urea nitroge n measurement (mass/volume)on 06-03-2022 Urea nitrogen [Mass/Vol] 17 mg/dL 7-18 [facility] Work Phone: Thin prep Papanicolaou smear with manual screeningon 06-03-2022 Thin prep Papanicolaou smear with manual screening 25 U/L 15-37 [facility] Work Phone: Thin prep Papanicolaou smear with manual screening 7 5-15 [facility] Work Phone: Absolute lymphocyte counton 12-03-2021 Lymphocytes Auto (Unsp spec) [#/Vol] 2.04 10*3/uL 0.83-4.51 [facility] Work Phone: Basophil percentageon 2021 Basophils/100 WBC (Bld) 0.4 % 0-1 [facility] Work Phone: Bilirubin [Mass/Vol] 0.50 mg/dL 0.20-1.00 [facility] Work Phone: Comment on above: For patients on eltr ombopag therapy, use of Dimension [place] TBIL is not recommended. Chloride [Moles/Vol] 102 mmol/L 98-107 [facility] Work Phone: Eosinophils/100 WBC (Bld) 2.2 % 0-5 [facility] Work Phone: Glucose [Mass/Vol] 92 mg/dL 74-106 [facility] Work Phone: Neutrophils (Bld) [#/Vol] 4.9 10*3/uL 2.0-7.7 [facility] [facility] Work Phone: [phone] Neutrophils/100 WBC (Bld) 64.2 % 47-70 [facility] Work Phone: Potassium [Moles/Vol] 4.2 mmol/L 3.5-5.1 [facility] Work Phone: Protein [Mass/Vol] 7.2 g/dL 6.4-8.2 [facility] Work Phone: Sodium [Moles/Vol] 136 mmol/L 136-145 [facility] Work Phone: WBC (Bld) [#/Vol] 7.7 10*3/uL 4.4-11.0 [facility] Work Phone: Blood erythrocytes count (nu mber/volume)on 12-03-2021 RBC (Bld) [#/Vol] 4.10 10*6/uL 4.2-5.4 [facility] Work Phone: Blood hemoglobin measurement (mass/volume)on 12-03-2021 Hemoglobin (Bld) [Mass/Vol] 13.3 g/dL 12.0-15.0 [facility] Work Phone: Blood lymphocytes/100 leukoc yteson 12-03-2021 Lymphocytes/100 WBC (Bld) 26.7 % 19-41 [facility] Work Phone: Blood monocytes/100 leukocyt eson 12-03-2021 Monocytes/100 WBC (Bld) 6.4 % 0-10 [facility] Work Phone: Blood platelet mean volumeon 12-03-2021 Platelet mean volume (Bld) [Entitic vol] 10.2 fL 6.2-12.0 [facility] Work Phone: Determination of erythrocyte mean corpuscular volume (MCV)on 12-03-2021 MCV (RBC) [Entitic vol] 98.3 fL 81-99 [facility] Work Phone: Hematocrit Auto (Bld) [Volum e fraction]on 12-03-2021 Hematocrit (Bld) [Volume fraction] 40.3 % 37-47 [facility] Work Phone: Laboratory - Chemistry and C hemistry - challengeon 12-03-2021 ALP [Catalytic activity/Vol] 56 U/L 45-117 [facility] Work Phone: ALT [Catalytic activity/Vol] 37 U/L 13-56 [facility] Work Phone: CO2 [Moles/Vol] 28.0 mmol/L 21.0-32.0 [facility] Work Phone: Globulin (S) [Mass/Vol] 3.5 g/dL 2.2-4.2 [facility] Work Phone: Urea nitrogen/Creatinine [Mass ratio] 17.1 mg/mg 10-20 [facility] Work Phone: Laboratory - Hematology and Cell countson 12-03-2021 Erythrocyte distribution width (RBC) [Entitic vol] 50.6 fL 35.1-43.9 [facility] Work Phone: Erythrocyte distribution width (RBC) [Ratio] 13.9 % 11.6-14.6 [facility] Work Phone: Immature granulocytes/100 WBC (Bld) 0.100 % 0.0-0.9 [facility] Work Phone: Comment on above: IG% - Immature Granu locytes (promyelocytes, myelocytes and metamyelocytes) > 1% indicates that a LEFT SHIFT is Present. MCH (RBC) [Entitic mass] 32.4 pg 27.0-32.0 [facility] Work Phone: Nucleated RBC/100 WBC (Bld) [Ratio] 0 % 0-5 [facility] Work Phone: Laboratory - Microbiology an d Antimicrobial susceptibilityon 12-03-2021 SARS-CoV-2 (COVID-19) RNA YARELIS+probe Ql (Unsp spec) Not detected Not Detect [facility] Work Phone: Comment on above: Normal Reference Ran ge: Not DetectedMethod:(RT-PCR) real-time reverse transcriptase PCRLuminex TOM Instrument*The Food and Drug Administration (FDA) has issued an Emergency Use Authorization (EAU) for the [employer] SARS-CoV-2 Assay for the rapid detection of the virus that causes COVID-19. This test has been validated, but the FDAs independent review of this validation is pending.*Negative results do not preclude infection and should not be used as the sole basis for treatment or patient management. Optimum specimen types and timing for peak viral levels during infections caused by SARS-CoV-2 have not been determined. Collection of multiple specimens from the same patient may be necessary to detect the virus. The possibility of a false negative result should be considered if the patient has clinical presentation or has had recent exposure. MCHC Auto (RBC) [Mass/Vol]on 12-03-2021 MCHC (RBC) [Mass/Vol] 33.0 g/dL 32-36 [facility] Work Phone: No Panel Informationon 12-03 Influenza Types A,B Direct FA (AIYANA) [facility] Work Phone: Estimated GFR (MDRD) Amer 81 mL/min >60 [facility] Work Phone: Comment on above: GFR Calc Estimated GFR (MDRD) Non-Af Amer 67 mL/min >60 [facility] Work Phone: Comment on above: Non- GFR Calc Thyroid Stimulating Hormone (TSH) 1.32 uIU/mL 0.358-3.74 [facility] Work Phone: Vitamin D 25-Hydroxy 64.3 ng/mL [facility] Work Phone: Comment on above: Vitamin D 25(OH) Sta tus Range Deficiency <20 ng/mL (50nmol/L) Insufficiency 20 - 30 ng/mL (50 - 75 nmol/L) Sufficiency 30 - 100 ng/mL (75 - 250 nmol/L) Toxicity >100 ng/mL (>250 nmol/L) Platelets bldon 12-03-2021 Platelets (Bld) [#/Vol] 257 10*3/uL 150-450 [facility] Work Phone: Serum or plasma albumin marvin urement (mass/volume)on 12-03-2021 Albumin [Mass/Vol] 3.7 g/dL 3.2-5.0 [facility] Work Phone: Serum or plasma albumin/glob ulin mass ratioon 12-03-2021 Albumin/Globulin [Mass ratio] 1.1 {ratio} 0.9-2.4 [facility] Work Phone: Serum or plasma calcium marvin urement (mass/volume)on 12-03-2021 Calcium [Mass/Vol] 9.4 mg/dL 8.5-10.1 [facility] Work Phone: Serum or plasma creatinine m easurement (mass/volume)on 12-03-2021 Creatinine [Mass/Vol] 0.88 mg/dL 0.55-1.02 [facility] Work Phone: Comment on above: The validity of the calculated GFR & GFRAA in patients over 70 years has not been determined. Clinical correlation is essential. Serum or plasma urea nitroge n measurement (mass/volume)on 12-03-2021 Urea nitrogen [Mass/Vol] 15 mg/dL 7-18 [facility] Work Phone: Thin prep Papanicolaou smear with manual screeningon 12-03-2021 Thin prep Papanicolaou smear with manual screening 21 U/L 15-37 [facility] Work Phone: Thin prep Papanicolaou smear with manual screening 6 5-15 [facility] Work Phone: Clinical Lists Update: 11-03-2016 Cholesterol 132 mg/dL Invalid Interpretation Code [facility] Work Phone: [phone] Cholesterol to HDL Ratio 1.8 {ratio} Invalid Interpretation Code [facility] Work Phone: [phone] HDL Cholesterol 75 mg/dL Invalid Interpretation Code [facility] Work Phone: [phone] LDL Cholesterol 31 mg/dL Invalid Interpretation Code [facility] Work Phone: [phone] Triglyceride 134 mg/dL Invalid Interpretation Code [facility] Work Phone: [phone] Office Visiton 09-03-2016 Dietary management education, guidance, and counseling (procedure) yes Invalid Interpretation Code [facility] Work Phone: [phone] Documentation of current medications (procedure) Done Invalid Interpretation Code [facility] Work Phone: [phone] Clinical Lists Update: 08-30-2016 Left ventricular Ejection fraction 55 % Invalid Interpretation Code [facility] Work Phone: [phone] Office Visiton 04-21-2016 Tobacco use [facility] Former smoker Invalid Interpretation Code [facility] Work Phone: [phone] Office Visiton 09-05-2015 General cardiovascular disease 10Y risk [#] [place] 2 % Invalid Interpretation Code [facility] Work Phone: [phone] Clinical Lists Update: Prelo pot pusher 04-02-2015 Alanine aminotransferase (ALT) 34 U/L Invalid Interpretation Code [facility] Work Phone: [phone] Alkaline phosphatase (ALP) 69 U/L Invalid Interpretation Code [facility] Work Phone: [phone] Aspartate aminotransferase (AST) 21 U/L Invalid Interpretation Code [facility] Work Phone: [phone] BUN/Creatinine Ratio 12 mg/mg Invalid Interpretation Code [facility] Work Phone: [phone] Chloride 106 mmol/L Invalid Interpretation Code [facility] Work Phone: [phone] CO2 24.0 mmol/L Invalid Interpretation Code [facility] Work Phone: [phone] Creatinine 0.94 mg/dL Invalid Interpretation Code [facility] Work Phone: [phone] Hematocrit (HCT) 40.5 % Invalid Interpretation Code [facility] Work Phone: [phone] Hemoglobin (HGB) 13.7 g/dL Invalid Interpretation Code [facility] Work Phone: [phone] Platelets 315 10*3/mm3 Invalid Interpretation Code [facility] Work Phone: [phone] Potassium 3.8 mmol/L Invalid Interpretation Code [facility] Work Phone: [phone] Sodium 137 mmol/L Invalid Interpretation Code [facility] Work Phone: [phone] WBC (Leukocytes) 5.8 10*3/uL Invalid Interpretation Code [facility] Work Phone: [phone] Clinical Lists Update: Prelo pot pusher 11-07-2014 Thyroid stimulating hormone (TSH) 0.38 u[iU]/mL Invalid Interpretation Code [facility] Work Phone: [phone] Lab Report: Lipid Profileon 09-09-2014 very low density lipoproteins 18 mg/dL Invalid Interpretation Code 5-40 [facility] Work Phone: [phone] Lab Report: Liver Profileon 09-09-2014 Albumin 4.3 g/dL Invalid Interpretation Code 3.4-5.0 [facility] Work Phone: [phone] Bilirubin (direct) 0.19 mg/dL Invalid Interpretation Code 0.00-0.30 [facility] Work Phone: [phone] Bilirubin (total) 0.60 mg/dL Invalid Interpretation Code 0.00-4.00 [facility] Work Phone: [phone] Globulin 3.1 g/dL Invalid Interpretation Code 2.7-4.2 [facility] Work Phone: [phone] Protein 7.4 g/dL Invalid Interpretation Code 6.4-8.2 [facility] Work Phone: [phone] Office Visiton 09-02-2014 cardiac risk group B Invalid Interpretation Code [facility] Phone: [phone] Office Visiton 03-28-2014 Erythrocytes (RBC) 4.87 10*6/uL Invalid Interpretation Code [facility] Work Phone: [phone] MCH 86.4 pg Invalid Interpretation Code [facility] Phone: [phone] RDW-CA 13.7 % Invalid Interpretation Code [facility] Phone: [phone] EKG Report: [facility] ECG Obse rvationson 09-07-2012 GE use only - for [employer] import when terms are not otherwise specified 414 ms Invalid Interpretation Code [facility] Phone: [phone] Replaced Document: [facility] E CG Observationson 09-07-2012 electrocardiogram interpretation Sinus Rhythm WITHIN NORMAL LIMITS Invalid Interpretation Code [facility] Phone: [phone] P wave axis, electrocardiogram 42 deg Invalid Interpretation Code [facility] Work Phone: [phone] [place] interval, electrocardiogram 212 ms Invalid Interpretation Code [facility] Work Phone: [phone] Pulse (Heart Rate) 74 /min Invalid Interpretation Code [facility] Work Phone: [phone] Pulse (Heart Rate) 416 ms Invalid Interpretation Code [facility] Work Phone: [phone] QRS axis, electrocardiogram 36 deg Invalid Interpretation Code [facility] Work Phone: [phone] QRS duration, electrocardiogram 98 ms Invalid Interpretation Code [facility] Work Phone: [phone] QT interval, electrocardiogram new path ms Invalid Interpretation Code [facility] Work Phone: [phone] T wave axis, electrocardiogram 44 deg Invalid Interpretation Code [facility] Work Phone: [phone] No Panel Information Influenza Types A,B Direct FA (AIYANA) [facility] Work Phone: Vital Signs Date Time Vital Sign Value Performing Clinician Faci lity 10-08-2024 07:55-0400 Body mass index (BMI) [Ratio] 22.4 kg/m2 Dr. Rashel Lopez MD Work Phone: [facility] 10-08-2024 07:55-0400 Body weight 64.[address] Rashel Lopez MD Work Phone: [facility] 10-08-2024 07:55-0400 Diastolic blood pressure 65 mm[Hg] Dr. Rashel Lopez MD Work Phone: [facility] 10-08-2024 07:55-0400 Heart rate 84 /min Dr. Rashel Lopez MD Work Phone: [facility] 10-08-2024 07:55-0400 Respiratory rate 18 /min Dr. Rashel Lopez MD Work Phone: [facility] 10-08-2024 07:55-0400 SaO2% (BldA) [Mass fraction] 95 % Dr. Rashel Lopez MD Work Phone: [facility] 10-08-2024 07:55-0400 Systolic blood pressure 105 mm[Hg] Dr. Rashel Lopez MD Work Phone: [facility] 05-06-2023 12:56-0400 Body height 170.[address] Rashel Lopez Work Phone: [facility] 05-06-2023 12:56-0400 Body mass index (BMI) [Ratio] 21.9 kg/m2 Dr. Rashel Lopez Work Phone: [facility] 05-06-2023 12:56-0400 Body temperature 97.2 [degF] Dr. Rashel Lopez Work Phone: [facility] 05-06-2023 12:56-0400 Body weight 63.[address] Rashel Lopez Work Phone: 7(011)480-071203 [place] [address] 05-06-2023 12:56-0400 Diastolic blood pressure 53 mm[Hg] Dr. Rashel Lopez Work Phone: 6(467)630-213813 [address] 05-06-2023 12:56-0400 Heart rate 85 /min Dr. Rashel Lopez Work Phone: 9(031)587-447857 [place] [address] 05-06-2023 12:56-0400 Respiratory rate 16 /min Dr. Rashel Lopez Work Phone: 2(142)216-480557 [place] [address] 05-06-2023 12:56-0400 SaO2% (BldA) [Mass fraction] 95 % Dr. Rashel Lopez Work Phone: 1(288)501-024503 [place] [address] 05-06-2023 12:56-0400 Systolic blood pressure 113 mm[Hg] Dr. Rashel Lopez Work Phone: 0(942)102-695757 [place] [address] 04-25-2023 09:01-0400 Body mass index (BMI) [Ratio] 21.8 kg/m2 Dr. Rashel Lopez Work Phone: 6(932)074-857957 [place] [address] 04-25-2023 09:01-0400 Body temperature 97.6 [degF] Dr. Rashel Lopez Work Phone: 4(120)280-491003 [place] [address] 04-25-2023 09:01-0400 Body weight 63.[address] Rashel Lopez Work Phone: 0(401)769-596057 [place] [address] 04-25-2023 09:01-0400 Diastolic blood pressure 60 mm[Hg] Dr. Rashel Lopez Work Phone: 3(069)550-995957 [place] [address] 04-25-2023 09:01-0400 Heart rate 72 /min Dr. Rashel Lopez Work Phone: 9(899)451-581657 [place] [address] 04-25-2023 09:01-0400 Respiratory rate 16 /min Dr. Rashel Lopez Work Phone: 9(081)702-243457 [place] [address] 04-25-2023 09:01-0400 SaO2% (BldA) [Mass fraction] 97 % Dr. Rashel Lopez Work Phone: 8(502)969-522357 [place] [address] 04-25-2023 09:01-0400 Systolic blood pressure 98 mm[Hg] Dr. Rashel Lopez Work Phone: 4(448)629-115357 [place] [address] 11-05-2022 12:34-0400 Body height 170.[address] Rashel Lopez Work Phone: 5(662)773-804057 [place] [address] 11-05-2022 12:34-0400 Body mass index (BMI) [Ratio] 21.6 kg/m2 Dr. Rashel Lopez Work Phone: 6(888)022-494357 [place] [address] 11-05-2022 12:34-0400 Body temperature 96.3 [degF] Dr. Rashel Lopez Work Phone: 8(664)614-897057 [place] [address] 11-05-2022 12:34-0400 Body weight 62.[address] Rashel Lopez Work Phone: 0(343)605-747657 [place] [address] 11-05-2022 12:34-0400 Diastolic blood pressure 50 mm[Hg] Dr. Rashel Lopez Work Phone: 9(737)291-711957 [place] [address] 11-05-2022 12:34-0400 Heart rate 69 /min Dr. Rashel Lopez Work Phone: 0(448)573-214157 [place] [address] 11-05-2022 12:34-0400 Respiratory rate 16 /min Dr. Rashel Lopez Work Phone: 3(600)303-555757 [place] [address] 11-05-2022 12:34-0400 SaO2% (BldA) [Mass fraction] 96 % Dr. Rashel Lopez Work Phone: 6(791)575-266257 [place] [address] 11-05-2022 12:34-0400 Systolic blood pressure 103 mm[Hg] Dr. Rashel Lopez Work Phone: 0(051)946-986757 [place] [address] 10-18-2022 09:25-0400 Body mass index (BMI) [Ratio] 21.6 kg/m2 Dr. Rashel Lopez Work Phone: [facility] 10-18-2022 09:25-0400 Body weight 62.[address] Rashel Lopez Work Phone: [facility] 10-18-2022 09:25-0400 Diastolic blood pressure 67 mm[Hg] Dr. Rashel Lopez Work Phone: [facility] 10-18-2022 09:25-0400 Heart rate 74 /min Dr. Rashel Lopez Work Phone: [facility] 10-18-2022 09:25-0400 Respiratory rate 16 /min Dr. Rashel Lopez Work Phone: [facility] 10-18-2022 09:25-0400 Systolic blood pressure 101 mm[Hg] Dr. Rashel Lopez Work Phone: [facility] 05-05-2022 12:28-0400 Diastolic blood pressure 57 mm[Hg] Dr. Rashel Lopez Work Phone: [facility] Work Phone: 05-05-2022 12:28-0400 Heart rate 79 /min Dr. Rashel Lopez Work Phone: [facility] Work Phone: 05-05-2022 12:28-0400 Systolic blood pressure 103 mm[Hg] Dr. Rashel Lopez Work Phone: [facility] Work Phone: 04-22-2022 10:00-0400 Body height 170.[address] Rashel Lopez Work Phone: [facility] Work Phone: 04-22-2022 10:00-0400 Body mass index (BMI) [Ratio] 21.9 kg/m2 Dr. Rashel Lopez Work Phone: [facility] Work Phone: 04-22-2022 10:00-0400 Body temperature 97.3 [degF] Dr. Rashel Lopez Work Phone: [facility] Work Phone: 04-22-2022 10:00-0400 Body weight 63.[address] Rashel Lopez Work Phone: [facility] Work Phone: 04-22-2022 10:00-0400 Diastolic blood pressure 58 mm[Hg] Dr. Rashel Lopez Work Phone: [facility] Work Phone: 04-22-2022 10:00-0400 Heart rate 96 /min Dr. Rashel Lopez Work Phone: [facility] Work Phone: 04-22-2022 10:00-0400 Respiratory rate 18 /min Dr. Rashel Lopez Work Phone: [facility] Work Phone: 04-22-2022 10:00-0400 SaO2% (BldA) [Mass fraction] 95 % Dr. Rashel Lopez Work Phone: [facility] Work Phone: 04-22-2022 10:00-0400 Systolic blood pressure 93 mm[Hg] Dr. Rashel Lopez Work Phone: [facility] Work Phone: 11-04-2021 08:37-0400 Body temperature 97.2 [degF] Dr. Rashel Lopez Work Phone: [facility] Work Phone: 11-04-2021 08:37-0400 Diastolic blood pressure 58 mm[Hg] Dr. Rashel Lopez Work Phone: [facility] Work Phone: 11-04-2021 08:37-0400 Heart rate 70 /min Dr. Rashel Lopez Work Phone: [facility] Work Phone: 11-04-2021 08:37-0400 Respiratory rate 16 /min Dr. Rashel Lopez Work Phone: [facility] Work Phone: 11-04-2021 08:37-0400 SaO2% (BldA) [Mass fraction] 96 % Dr. Rashel Lopez Work Phone: [facility] Work Phone: 11-04-2021 08:37-0400 Systolic blood pressure 97 mm[Hg] Dr. Rashel Lopez Work Phone: [facility] Work Phone: 08-12-2021 13:07-0500 Body height 170.[address] Rashel Lopez Work Phone: [facility] Work Phone: 08-12-2021 13:07-0500 Body weight 64.[address] Rashel Lopez Work Phone: [facility] Work Phone: 08-12-2021 13:07-0500 Diastolic blood pressure 60 mm[Hg] Dr. Rashel Lopez Work Phone: [facility] Work Phone: 08-12-2021 13:07-0500 Heart rate 84 /min Dr. Rashel Lopez Work Phone: [facility] Work Phone: 08-12-2021 13:07-0500 Respiratory rate 16 /min Dr. Rashel Lopez Work Phone: [facility] Work Phone: 08-12-2021 13:07-0500 Systolic blood pressure 90 mm[Hg] Dr. Rashel Lopez Work Phone: [facility] Work Phone: 08-15-2020 08:35-0500 Body mass index (BMI) [Ratio] 23.4 kg/m2 Dr. Rashel Lopez Work Phone: [facility] Work Phone: 09-03-2016 10:22-0500 BMI (Body Mass Index) 25.84 kg/m2 [facility] Work Phone: 09-03-2016 10:22-0500 BP Diastolic 76 mm[Hg] Harumi DeFinis [facility] Work Phone: 09-03-2016 10:22-0500 BP Systolic 112 mm[Hg] Harumi DeFinis [facility] Work Phone: 09-03-2016 10:22-0500 Pulse (Heart Rate) 84 /min Harumi DeFinis [facility] Work Phone: 09-03-2016 10:22-0500 Respiratory Rate 16 /min Harumi DeFinis [facility] Work Phone: 09-03-2016 10:22-0500 Weight 74.84 kg Harumi DeFinis [facility] Work Phone: 09-05-2015 13:01-0500 BSA (Body Surface Area) 1.85 m2 Harlarry DeFinis [facility] Work Phone: 09-02-2014 09:58-0500 Height 170.18 cm Harumi DeFinis [facility] Work Phone: Encounters Encounter Date Encounter Type Care Provider Facility Start: 02-14-2025 ambulatory Rashel Chi John Facility:[facility] Start: 01-31-2025 ambulatory Rashel [facility] Facility:[facility] Start: 01-21-2025 End: 01-21-2025 Patient encounter procedure Kalyani HUDSON -[facility] Work Phone: Start: 01-21-2025 End: 01-21-[address] Rashel Lopez MD Work Phone: -[facility] Start: 01-14-2025 End: 01-14-[address] Rashel Lopez MD Work Phone: [facility] Start: 01-14-2025 End: 01-14-[address] Rashel Lopez MD [facility] Work Phone: Start: 01-14-2025 End: 01-14-2025 ambulatory Rashel Chi John Facility:[facility] Start: 12-21-2024 End: 12-21-2024 Patient encounter procedure Kalyani HUDSON -[facility] Work Phone: Start: 12-21-2024 End: 12-21-[address] Rashel Lopez MD Work Phone: [facility] Work Phone: Start: 12-13-2024 End: 12-13-[address] Rashel Lopez MD Work Phone: [facility] Work Phone: Start: 12-13-2024 End: 12-13-[address] Rashel Lopez MD -Radiology [facility] Work Phone: Start: 12-13-2024 End: 12-13-2024 ambulatory Rashel Chi John Facility:[facility] Start: 10-29-2024 End: 10-29-[address] Michael Regalado MD -[facility] Work Phone: Start: 10-29-2024 End: 10-29-2024 ambulatory Rashel Chi John Facility:[facility] Start: 10-08-2024 End: 10-08-2024 ambulatory Rashel Chi John Facility:[facility] Start: 10-08-2024 End: 10-08-2024 Patient encounter procedure Shy HUDSON -[facility] Work Phone: Start: 06-12-2024 End: 06-12-2024 ambulatory Rashel Chi John Facility:[facility] Start: 04-30-2024 End: 04-30-2024 ambulatory Rashel Chi John Facility:[facility] Start: 09-16-2023 Non-patient / Non-visit Dr. Rashel Lopez Work Phone: [facility] Work Phone: Start: 09-16-2023 Non-patient / Non-visit Dr. Rashel Lopez Work Phone: [facility] Start: 09-16-2023 End: 09-16-[address] Rashel Lopez Work Phone: [facility] Work Phone: Start: 09-16-2023 End: 09-16-[address] Rashel Lopez Work Phone: [facility] Work Phone: Start: 06-06-2023 End: 06-06-[address] Rashel Lopez Work Phone: [facility] Work Phone: Start: 06-06-2023 End: 06-06-[address] Rashel Lopez Work Phone: [facility]-Laboratory, Phy Office [address] [place] [address] Start: 05-06-2023 End: 05-06-[address] Rashel Lopez Work Phone: [facility] [place] Work Phone: Start: 05-06-2023 End: 05-06-[address] Rashel Lopez Work Phone: [facility]-Medical Out Work Phone: Start: 04-25-2023 End: 04-25-[address] Rashel Lopez Work Phone: [facility] Endocrinology Work Phone: Start: 01-10-2023 End: 01-10-[address] Rashel Lopez Work Phone: [facility] Work Phone: Start: 01-10-2023 End: 01-10-[address] Rashel Lopez Work Phone: [facility]-Outpatient Breast Imaging Work Phone: Start: 12-06-2022 End: 12-06-[address] Rashel Lopez Work Phone: [facility]-Laboratory Work Phone: Start: 11-05-2022 End: 11-05-[address] Rashel Lopez Work Phone: [facility] Work Phone: Start: 11-05-2022 End: 11-05-[address] Rashel Lopez Work Phone: [facility] Start: 10-18-2022 End: 10-18-[address] Rashel Lopez Work Phone: [facility] Start: 10-06-2022 Non-patient / Non-visit Dr. Rashel Lopez Work Phone: [facility] Start: 06-03-2022 End: 06-03-[address] Rashel Lopez Work Phone: [facility] Work Phone: Start: 06-03-2022 End: 06-03-[address] Rashel Lopez Work Phone: [facility]-Laboratory, Phy Office 3rd Mor Start: 05-05-2022 End: 05-05-[address] Rashel Lopez Work Phone: [facility] Work Phone: Start: 05-05-2022 End: 05-05-[address] [facility] Start: 04-22-2022 End: 04-22-[address] Rashel Lopez Work Phone: [facility] Endocrinology Start: 12-14-2021 End: 12-14-2021 Patient encounter procedure [facility]-Outpatient Breast Imaging Start: 12-03-2021 End: 12-03-[address] Rashel Lopez Work Phone: [facility]-Pulmonary Services/Neurology Start: 12-03-2021 End: 12-03-[address] Rashel Lopez Work Phone: [facility]-Laboratory, Phy Office 3rd Flr Start: 11-04-2021 End: 11-04-[address] Rashel Lopez Work Phone: [facility] Start: 08-20-2021 End: 08-20-[address] Rashel Lopez Work Phone: [facility]-Cardiovascular Services Start: 08-12-2021 End: 08-12-[address] Rashel Lopez Work Phone: [facility] Procedures Date Procedure Procedure Detail Performing Clinician Start: 01-14-2025 Screening mammography Jay Lopez MD Work Phone: Start: 12-13-2024 Vitamin D, 25-hydrox y measurement Dr. Rashel Lopez MD Work Phone: Comment on above: Vitamin D StatusDefi ciency: <20 ng/mL (50nmol/L)Insufficiency: 20-30 ng/mL (50-75 nmol/L)Sufficiency: 30-100 ng/mL (75-250 nmol/L)Toxicity: >100 ng/mL (>250 nmol/L) Start: 12-13-2024 Plain X-ray abdomen Dr. Rashel Lopez MD Work Phone: Start: 01-10-2023 Screening mammography Jay Lopez Work Phone: Start: 12-14-2021 Screening mammography Start: 12-03-2021 Influenza Types A,B Direct FA (AIYANA) Dr. Rashel Lopez Work Phone: Start: 12-03-2021 End: 12-03-2021 Respiratory syncytial virus antigen assay Dr. Rashel Lopez Work Phone: Start: 09-03-2016 End: 09-03-2016 Follow [...] 09-23-2011 Lipid panel [AGGREGATE] Jaylan Mace MD Influenza Types A,B Direct FA (AIYANA) Respiratory syncytia l virus antigen assay Plan of Treatment Date Care Activity Detail Author Start: 09-12-2017 End: 09-12-2017 Appointment Appointment [facility] Work Phone: Start: 09-03-2016 End: 09-03-2016 Follow Up Appt 1 year Follow Up Appt 1 year [facility] Work Phone: Start: 09-03-2016 End: 09-03-2016 PFM PFM [facility] Work Phone: Start: 04-16-2016 End: 10-16-2015 *Hepatic Function Panel *Hepatic Function Panel [facility] Work Phone: Start: 04-16-2016 End: 10-16-2015 Lipid panel [AGGREGATE] *Lipid Profile CC PCP [facility] Work Phone: Start: 09-05-2015 End: 09-05-2015 Follow Up Appt 1 year Follow Up Appt 1 year [facility] Work Phone: Start: 09-05-2015 End: 09-05-2015 Follow Up Appt Other Follow Up Appt Other [facility] Work Phone: Start: 09-05-2015 End: 09-05-2015 PFM PFM [facility] Work Phone: Start: 03-12-2015 End: 09-08-2015 Lipid panel [AGGREGATE] *Lipid Profile CC PCP [facility] Work Phone: Start: 09-02-2014 End: 09-09-2014 *Hepatic Function Panel *Hepatic Function Panel [facility] Work Phone: Start: 09-02-2014 End: 09-02-2014 Follow Up Appt 1 year Follow Up Appt 1 year [facility] Work Phone: Start: 09-02-2014 End: 09-09-2014 Lipid panel [AGGREGATE] *Lipid Profile CC PCP [facility] Work Phone: Start: 09-02-2014 End: 09-02-2014 PFM PFM [facility] Work Phone: Start: 09-03-2013 End: 09-03-2013 Follow Up Appt 1 year Follow Up Appt 1 year [facility] Work Phone: Start: 09-03-2013 End: 09-03-2013 PFM PFM [facility] Work Phone: Start: 09-07-2012 End: 09-07-2012 Electrocardiogram, complete EKG (In office) [facility] Work Phone: Start: 09-07-2012 End: 09-07-2012 Follow Up Appt 1 year Follow Up Appt 1 year [facility] Work Phone: Start: 09-07-2012 End: 09-07-2012 PFM PFM [facility] Work Phone: Start: 09-07-2011 End: 09-23-2011 *Hepatic Function Panel *Hepatic Function Panel [facility] Work Phone: Start: 09-07-2011 End: 09-07-2011 Electrocardiogram, complete EKG (In office) [facility] Work Phone: Start: 09-07-2011 End: 09-07-2011 Follow Up Appt 1 year Follow Up Appt 1 year [facility] Work Phone: Start: 09-07-2011 End: 09-23-2011 Lipid panel [AGGREGATE] *Lipid Profile [facility] Work Phone: Patient Education HYPERLIPIDEMIA , PALPITATIONS [facility] Work Phone: US Carotid arteries [facility] Vitamin D, 25-hydrox y measurement [facility] Payers Date Payer Category Payer Self-pay [id number] 2023 Private Health Insurance [facility] [id number] 2006 Unknown [id number] Medicare [id number] Unknown [id number] [id number] Unknown [id number] 2.16.8 [id number] Unknown [id number] 2.16.8 [id number] Unknown [id number] 2.16.8 [id number] Unknown [id number] 2.16.8 [id number] Unknown [id number] 2.16.8 [id number] Unknown [id number] 2.16.8 [id number] Unknown [id number] 2.16.8 [id number] Unknown [id number] 2.16.8 [id number] Unknown [id number] 2.16.8 [id number] Social History Date Type Detail Facility Start: 08-12-2021 End: 04-25-2023 Tobacco smoking status NHIS Unknown if ever smoked [facility] Start: 1950 Sex Assigned At Female [facility] Start: 10-13-2023 End: 12-21-2024 Tobacco smoking status NHIS Ex-smoker (finding) [facility] Mental Status Date Assessment Result Facility 05-06-2023 Cognitive function Awake;Alert;A ppropriate;Follow s Commands [facility] Work Phone: 11-05-2022 Cognitive function Voice/Name [facility] Work Phone: 05-05-2022 Cognitive function Level Of Cons ciousness Awake;Alert;Appropriate;Follow s Commands [facility] Work Phone: 11-04-2021 Cognitive function Level Of Cons ciousness Awake;Alert;Appropriate;Follow s Commands [facility] Work Phone: Radiology Diagnostic study note 12-13-2024 Note Date & Type Note Facility 12-13-2024 Radiology Diagnostic study note [facility] Imaging Services [address] [place], [place] [address] [employer] Inc Decub and/or Erect MR#: [id number] Acct: [id number] Name: RACHEL HUDSON Rep #: [id number] F 74 From: Rashaad Meneses MD PCP: Dr. Rashel Lopez MD Status: REG C LI Study:Abd Inc Decub and/or Erect Date of Exam : 12/13/24 Exam# [id number] Ordering Dr: Rashel Lopez MD PROCEDURE: ABD INC DECUB AND/OR ERECT 12/13/2024 REASON FOR EXAM: DIARRHEA TECHNIQUE: Single view abdomen. COMPARISON: None. FINDINGS: There is a nonobstructive bowel gas pattern. There are no abnormal soft tissue calcifications project over either renal outline or along the path of either ureter. There are calcified injection granulomas inthe left buttock. There is dextroscoliosis of the thoracolumbar spine. RAD/Abd Inc Decub and/or Erect IMPRESSION: No evidence of acute abdominal pathology. Reading Location: [place] [address] CC: Dr. Rashel Lopez MD ~ Event Producer: Signed [facility] Work Phone: Evaluation note 10-08-2024 Note Date & Type Note Facility 10-08-2024 Evaluation note Diagnosis Onset Date Resolution Carotid artery disease chronic Ap ril 2024 11:19am Ectopic atrial tachycardia chronic October 08, 2024 11:19am Pure hypercholesterolemia chronic October 08, 2024 11:19am Osteoporosis chronic October 29, 2024 8:44am [facility] Work Phone: Evaluation note 10-08-2024 Note Date & Type Note Facility 10-08-2024 Evaluation note Diagnosis Onset Date Resolution Carotid artery disease chronic Ap ril 2024 11:19am Ectopic atrial tachycardia chronic October 08, 2024 11:19am Pure hypercholesterolemia chronic October 08, 2024 11:19am Osteoporosis chronic October 29, 2024 8:44am Overflow diarrhea acute December 212024 12:56pm Constipation chronic December 21 12:56pm [facility] Work Phone: Evaluation note Note Date & Type Note Facility Evaluation note Diagnosis Onset Date Carotid bruit acute Paroxysmal tachycardia chron ic Premature atrial contraction chronic Premature ventricular contraction chronic Pure hypercholesterolemia [facility] Work Phone: Evaluation note Note Date & Type Note Facility Evaluation note No assessment information availa [facility] Work Phone: Evaluation note Note Date & Type Note Facility Evaluation note Diagnosis Onset Date Osteoporosis acute [facility] Work Phone: Evaluation note Note Date & Type Note Facility Evaluation note Diagnosis Onset Date Carotid artery disease chron ic Ectopic atrial tachycardia c hronic Pure hypercholesterolemia [facility] Work Phone: Evaluation note Note Date & Type Note Facility Evaluation note Diagnosis Onset Date Osteoporosis chronic [facility] Work Phone: Reason for referral (narrative) Note Date & Type Note Facility Reason for referral (narrative) No reason for referral information available [facility] Work Phone: Chief Complaint and Reason for Visit Chief Complaint 1 y fu CA BRUIT PROLIA 60MG/ML Reason for Visit Carotid bruit Paroxysmal tachycardia Premature atrial contraction Premature ventricular contraction Pure hypercholesterolemia Chief Complaint 1 y fu CA BRUIT PROLIA 60MG/ML CHILLS WITHOUT FEVER Reason for Visit Carotid bruit Paroxysmal tachycardia Premature atrial contraction Premature ventricular contraction Pure hypercholesterolemia Chief Complaint CA BRUIT PROLIA 60MG/ML CHILLS WITHOUT FEVER SCREENING Chief Complaint 1 Y FU PROLIA 60MG/ML Reason for Visit Osteoporosis Chief Complaint Amb Documentation 1 YR F/U (PFM PT) PROLIA 60MG/ML Reason for Visit Carotid artery disea se Ectopic atrial tachycardia Pure hypercholesterolemia Chief Complaint Amb Documentation 1 YR F/U (PFM PT) PROLIA 60MG/ML SCREENING Reason for Visit Carotid artery disea se Ectopic atrial tachycardia Pure hypercholesterolemia Chief Complaint SCREENING 1 Y FU PROLIA 60MG/ML Reason for Visit Osteoporosis Chief Complaint CAROTID ARTERY DISEA SE Amb Documentation Chief Complaint Admit Date 1 Y October 08, 2024 11:1 9am Prolia - B&B October 29, 2024 8:4 4am Reason for Visit Admit Date Carotid artery disease October 08, 2024 1 1:19am Ectopic atrial tachycardia October 08 11:19am Pure hypercholesterolemia October 08 11:19am Osteoporosis October 29, 2024 8:4 4am Chief Complaint Admit Date 1 Y October 08, 2024 11:1 9am Prolia - B&B October 29, 2024 8:4 4am DIARRHEA - HEART HISTORY December 21, 2024 12:56pm Chief Complaint Admit Date 1 Y October 08, 2024 11:1 9am Prolia - B&B October 29, 2024 8:4 4am DIARRHEA - HEART HISTORY December 21, 2024 12:56pm SCREENING January 14, 2025 10:5 2am Reason for Visit Admit Date Carotid artery disease October 08, 2024 1 1:19am Ectopic atrial tachycardia October 08 11:19am Pure hypercholesterolemia October 08 11:19am Osteoporosis October 29, 2024 8:4 4am Overflow diarrhea December 21, 2024 12:5 6pm Constipation December 21, 2024 12:5 6pm Chief Complaint Admit Date 1 Y October 08, 2024 11:1 9am Prolia - B&B October 29, 2024 8:4 4am DIARRHEA - HEART HISTORY December 21, 2024 12:56pm SCREENING January 14, 2025 10:5 2am 1 M FU January 21, 2025 12:4 9pm Family History No Family History Records Found Relationship Condition Age at Onset Recorded Date/T rosalba father Coronary artery disease Unknown mother Diabetes mellitus Unknown Cardiac disease Unknown sister Hypertension Unknown Hyperlipidemia Unknown Myocardial infarction Unknown Coronary artery disease Unknown Advance Directives No Advanced Directives Records Found Advance Directive Response Recorded Date/ Time Living Will Yes March 05 12:53pm Power of [place]addock Judge Yes March 05, 2016 12:53pm Advance Directive Response Recorded Date/ Time Living Will Yes March 05 11:53am Power of [place] Judge Yes March 05, 2016 11:53am Summary Purpose Additional Source Comments Goals (unrecognized section and content) Goals may be documented in a n alternate sectionGoals may be documented in an alternate sectionGoals may be documented in an alternate sectionGoals may be documented in an alternate sectionGoals may be documented in an alternate sectionGoals may be documented in an alternate sectionGoals may be documented in an alternate sectionGoals may be documented in an alternate sectionGoals may be documented in an alternate sectionGoals may be documented in an alternate sectionGoals may be documented in an alternate sectionGoals may be documented in an alternate sectionGoals may be documented in an alternate sectionGoals may be documented in an alternate sectionGoals may be documented in an alternate section Care Teams (unrecognized sec tion and content) Team Status: Active Member Role Status Dates Dr. Rashel Lopez MD Family Provider Active Dr. Rashel Lopez MD Primary Care Provider Active Team Status: Inactive Member Role Status Dates Dr. Rashel Lopez MD Primary Care Provider, Referring Provider Active Dr. María Prado MD Attending Provider Active Team Status: Active Member Role Status Dates Dr. Rashel Lopez MD Primary Care Provider Active Sunita Harris Attending Provider Active Team Status: Inactive Member Role Status Dates Dr. Rashel Lopez MD Primary Care Provider Active Dr. Michael Regalado MD Attending Provider, Referring Provi rosana Active Team Status: Inactive Member Role Status Dates Dr. Rashel Lopez MD Primary Care Provi rosana, Attending Provider, Referring Provider Active Team Status: Inactive Member Role Status Dates Dr. Rashel Lopez MD Primary Care Provider, Referring Provider Active Dr. Michael Regalado MD Attending Provider Active Team Status: Inactive Member Role Status Dates Dr. Rashel Lopez MD Primary Care Provider, Attending Provider Active Team Status: Active Member Role Status Dates Dr. Rashel Lopez MD Primary Care Provider Active Dr. Gerhard Norwood MD Attending Provider Active Team Status: Active Member Role Status Dates Dr. Rashel Lopez MD Primary Care Provider Active Shy Edmonds [employer]ER INSTALLER, W[employer]OW [employer] CONDITIONER INSTALLER-C Attending Provider Active Team Status: Inactive Member Role Status Dates Dr. Rashel Lopez MD Primary Care Provider Active Dr. María Prado MD Attending Provider, Referring Pr ovider Active Team Status: Active Member Role Status Dates Dr. Rashel Lopez MD Primary Care Provider Active Team Status: Inactive Member Role Status Dates Dr. Rashel Lopez MD Primary Care Provider Active Start: October 08, 2024 End: October 08, 2024 Dr. Rashel Lopez MD Referring Provider Active Start: October 08, 2024 End: October 08, 2024 Shy Edmonds [employer]OW [employer] CONDITIONER INSTALLER, W[employer]OW AIR CONDITIONER INSTALLER-C Attending Provider Active Start: October 08, 2024 End: October 08, 2024 Team Status: Inactive Member Role Status Dates Dr. Rashel Lopez MD Primary Care Provider Active Start: October 29, 2024 End: October 29, 2024 Dr. Rashel Lopez MD Referring Provider Active Start: October 29, 2024 End: October 29, 2024 Dr. Michael Regalado MD Attending Provider Active Sta rt: October 29, 2024 End: October 29, 2024 Team Status: Inactive Member Role Status Dates Dr. Rashel Lopez MD Primary Care Provider Active Start: December 13, 2024 End: December 13, 2024 Dr. Rashel Lopez MD Attending Provider Active Start: December 13, 2024 End: December 13, 2024 Dr. Rashel Lopez MD Referring Provider Active Start: December 13, 2024 End: December 13, 2024 Team Status: Inactive Member Role Status Dates Dr. Rashel Lopez MD Primary Care Provider Active Start: December 21, 2024 End: December 21, 2024 Dr. Rashel Lopez MD Referring Provider Active Start: December 21, 2024 End: December 21, 2024 Kalyani Antonio NP-C Attending Provider Active S tart: December 21, 2024 End: December 21, 2024 Team Status: Active Member Role/Relationship Status Dates Dr. Rashel Lopez MD Primary Care Provider Active Team Status: Inactive Member Role/Relationship Status Dates Dr. Rashel Lopez MD Primary Care Provider Active Start: October 08, 2024 End: October 08, 2024 Dr. Rashel Lopez MD Referring Provider Active Start: October 08, 2024 End: October 08, 2024 ALLEN Chandra NPC Attending Provider Active Start: October 08, 2024 End: October 08, 2024 Team Status: Inactive Member Role/Relationship Status Dates Dr. Rashel Lopez MD Primary Care Provider Active Start: October 29, 2024 End: October 29, 2024 Dr. Rashel Lopez MD Referring Provider Active Start: October 29, 2024 End: October 29, 2024 Dr. Michael Regalado MD Attending Provider Active Sta rt: October 29, 2024 End: October 29, 2024 Team Status: Inactive Member Role/Relationship Status Dates Dr. Rashel Lopez MD Primary Care Provider Active Start: December 13, 2024 End: December 13, 2024 Dr. Rashel Lopez MD Attending Provider Active Start: December 13, 2024 End: December 13, 2024 Dr. Rashel Lopez MD Referring Provider Active Start: December 13, 2024 End: December 13, 2024 Team Status: Inactive Member Role/Relationship Status Dates Dr. Rashel Lopez MD Primary Care Provider Active Start: December 21, 2024 End: December 21, 2024 Dr. Rashel Lopez MD Referring Provider Active Start: December 21, 2024 End: December 21, 2024 BECCA Wills Attending Provider Active S tart: December 21, 2024 End: December 21, 2024 Team Status: Inactive Member Role/Relationship Status Dates Dr. Rashel Lopez MD Primary Care Provider Active Start: January 14, 2025 End: January 14, 2025 Dr. Rashel Lopez MD Attending Provider Active Start: January 14, 2025 End: January 14, 2025 Dr. Rashel Lopez MD Referring Provider Active Start: January 14, 2025 End: January 14, 2025 Team Status: Inactive Member Role/Relationship Status Dates Dr. Rashel Lopez MD Primary Care Provider Active Start: January 21, 2025 End: January 21, 2025 Dr. Rashel Lopez MD Referring Provider Active Start: January 21, 2025 End: January 21, 2025 BECCA Wills Attending Provider Active S tart: January 21, 2025 End: January 21, 2025 INFORMATION SOURCE (unrecogn ized section and content) DATE CREATED AUTHOR 02/13/2025 [facility] FOR RECORDS PERTAINING TO PATIENTS WHO ARE [...] BE BASED ON THE PRIMARY CLINICAL RECORDS. [facility] [employer] [facility]. provides no warranty or guarantee of the accuracy or completeness of information in this document.
[2025-02-14] MEDS: Lactated Ringers 1,000 ML 15 ML IV (07:55)
--- NOTE | 2025-02-14 08:14 | PCM.PRE.AN2 ---
ASA Classification* ASA Classification ASA Classification: 2 Assessment & Plan Anesthesia* Anesthesia Assessment Anesthesia Assessment: Discussed sedation and/or anesthesia options, risks, benefits, and alternatives with patient/parents/legal guardian/POA. Questions invited. The patient/parents/legal guardian/POA seems to understand and agrees to proceed with anesthesia plan. Reviewed the physical assessment, medical history, allergy history and patient home medications list prior to surgery/procedure/anesthetic and documented any changes. Performed airway and anesthesia risk assessments. Anesthesia Type Anesthesia Type: MAC History Source History Obtained from:: Patient and Chart Anesthesia Focused Assessment* Temperature: 98.6 F Pulse Rate: 78 Blood Pressure: 104/66 Respiratory Rate: 18 Pulse Ox: 98 Oxygen Delivery Method: Room Air Airway Assessment Mouth opens: >3 cm Mallampati Score: III Teeth Condition: Caps/Crowns (Patient has multiple crowns. They are all tight.) Neck Range of motion (ROM): Limited ROM (Slight Decrease) Labs Anesthesia Preop lab: CBC WBC 5.8 K/mm3 (4.4-11.0) 12/13/24 10:12/13/24 RBC 4.34 M/mm3 (4.2-5.4) 12/13/24 10:12/13/24 Hgb 14.6 g/dL (12.0-15.0) 12/13/24 10:12/13/24 Hct 42.3 % (37-47) 12/13/24 10:12/13/24 Plt Count 304 K/mm3 (150-450) 12/13/24 10:12/13/24 CHEMISTRY Potassium 4.8 mmol/L (3.3-5.1) 12/13/24 10:30 12/13/24 Sodium 137 mmol/L (133-145) 12/13/24 10:12/13/24 BUN 18 mg/dL (4-19) 12/13/24 10:12/13/24 Creatinine 0.83 mg/dL (0.70-1.20) 12/13/24 10:12/13/24 Glucose 98 mg/dL (70-99) 12/13/24 10:12/13/24 TSH 0.730 uIU/mL (0.300-4.200) 01/31/25 13:43 01/31/25 COAG Pre-Assessment Diagnosis/Proposed Procedure Planned Operative Procedure(s): COLONOSCOPY Anesthesia History 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 When Was Last Pacemaker Check QUESTION #4 FULL TEXT: You/Your Family Experience fever (hyperthermia) with Anesthesia Last Oral Intake Last Oral intake: Last Oral Intake NPO since 03:00 02/14/25 07:44 Meds taken in AM with sips of Yes 02/14/25 07:44 water? 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 Female Yes 02/12/25 16:57 HX of Motion Sickness No 02/12/25 16:57 HX of N/V After Surgery Yes 02/12/25 16:57 Non-Smoker Yes 02/12/25 16:57 Duration of Surgery greater No 02/12/25 16:57 than 60 minutes Number of Risk Factors 3 02/12/25 16:57 PONV Score Moderate Risk 02/12/25 16:57 Height & Weight Height & Weight: Anesthesia: Height & Weight Height 5 ft 7 in 02/14/25 07:44 Weight: 63.5 kg 02/14/25 07:44 Body Mass Index (BMI) 21.9 02/14/25 07:44 Respiratory Assessment Respiratory Assessment - 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 Has anyone observed you stop No 02/12/25 16:57 breathing during sleep? STOP Results Negative 02/12/25 16:57 QUESTION #5 FULL TEXT : Do you snore loudly (louder than talking or can be heard through closed doors)? 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 Specify any problems Hx of Preganancy in last 3 No 02/12/25 16:57 Months Nurse Filling Out Transfusion MGRIFFITH 02/12/25 16:57 & Questions: Date: 02/12/25 02/12/25 16:57 Time: 16:59 02/12/25 16:57 Patient unable to answer at this time (ie. 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 worker Hx Now No 02/12/25 16:57 Gestational Age (in weeks): EDC: Hx Hx Para Hx Section SAB No 02/12/25 16:57 Active Medications Active Medications: Current Medications Generic Name Dose Route Start Last Admin Trade Name Freq PRN Reason Stop Dose Admin Lactated Ringer's 1,000 mls @ 15 mls/hr 02/14/25 07:30 02/14/25 07:55 IV 15 mls/hr .Q48H ELDER Administration PFSH Medical History Cancer Depression Thyroid disease Arthritis Fatty liver Easy bruising Syncope Seasonal allergies PONV (postoperative nausea and vomiting) Former smoker Leg cramps Cardiology follow-up encounter Diarrhea Carotid artery disease Carotid bruit Osteoporosis Pure hypercholesterolemia Ectopic atrial tachycardia Premature atrial contraction Premature ventricular contraction balloon sinusplasty Hyperlipidemia Paroxysmal tachycardia Tachycardia Palpitations intermediate use of drug Iatrogenic hypothyroidism Home Medications ?Medication ?Instructions ?Recorded ?Last Taken ?Type rosuvastatin 20 mg tablet 20 mg PO QDAY 09/26/17 02/13/25 History citalopram 20 mg tablet 20 mg PO QDAY 09/27/17 02/13/25 History fluticasone propionate 50 2 spray intranasal QDAY PRN 08/12/21 02/12/25 History mcg/actuation nasal allergy symptoms spray,suspension (Flonase Allergy Relief) denosumab 60 mg/mL subcutaneous 60 mg subcut [id number] #1 mL 04/25/23 09/01/24 Rx syringe montelukast 10 mg tablet 10 mg PO DAILY 10/13/23 02/13/25 History coQ10 (ubiquinol) 100 mg capsule 100 mg PO DAILY 12/21/24 02/06/25 History (Qunol Donnell CoQ10) valacyclovir 500 mg tablet 500 mg PO Q12H PRN HERPES SKIN 12/21/24 Unknown History OUTBREAK levothyroxine 75 mcg tablet 75 mcg PO DAILY 02/12/25 02/14/25 History Allergy/AdvReac Type Severity Reaction Status Date / Time nitrofurantoin (From Allergy Hives Verified 02/14/25 07:42 Macrodantin) bupropion (From Wellbutrin) AdvReac Severe Unknown Verified 02/14/25 07:42 estrogens, conjugated (From AdvReac Severe Unknown Verified 02/14/25 07:42 Premarin) teriparatide (From Forteo) AdvReac Severe Unknown Verified 02/14/25 07:42 venlafaxine (From Effexor) AdvReac Severe Unknown Verified 02/14/25 07:42 Family History Father CAD (coronary artery disease) Mother Diabetes Heart disease Sister Hypertension HLD (hyperlipidemia) Myocardial infarction CAD (coronary artery disease) Surgical History History of reduction surgery of right breast History of colonoscopy History of basal cell carcinoma excision History of bilateral cataract extraction H/O arthroscopy of right knee exploratory lap History of total abdominal hysterectomy History of tonsillectomy and adenoidectomy History of lumpectomy of left breast Social History Smoking Status: Former smoker how long ago did patient quit smokin alcohol intake: never substance use type: does not use caffeine: Yes Type: coffee Number of servings: 4 and tea what type of physical activity do you participate in: none seatbelt use: always do you feel safe at home: Yes Review of Systems (Anesthesia) ROS Narrative System reviewed and no additional complaints, except as documented.
--- NOTE | 2025-02-14 08:15 | COLBX_PTH ---
PATIENT: RACHEL HUDSON LOC: EN U#:[id number] AGE/SX: 74/F ROOM: RE02/14/[address]: Dr. Donald Urena DO : 1950 BED: DIS: 02/14/2025 SPEC #: [id number] RECD: 02/14/25 09:37 STATUS: MICHAEL REBisi #: [id number] FERNANDO: 02/14/25 08:[address]: Donald Urena DEPT: SURGICAL PATHOLOGY RECD BY: Justino Navarrete ENTERED: 02/14/25 10:47 SP TYPE: COLON BX OTHR DR: Dr. Rashel Lopez MD Tissues: A - Ileum, NOS B - COLON BIOPSY C - Rectum, NOS Procedures: Surgery Specimen Level IV HEADER OPERATION: Colonoscopy with biopsy, polypectomy PRE-OP DIAGNOSIS: Constipation, encounter for screening colonoscopy TISSUE SUBMITTED: A- Terminal ileum biopsy, B- Random colon biopsy, C- Rectal polyp MICROSCOPIC DIAGNOSIS A. Terminal ileum, biopsy: - No specific pathologic change. B. Colon, random, biopsy: - No specific pathologic change. - The histologic features of microscopic colitis are not demonstrated. C. Rectum, polyp, biopsy: - Polypoid colonic mucosa distorted by cautery artifact - see note. Note: The assessment is limited by the cautery artifact. Features suggestive of hyperplastic polyp are noted, however, a tubular adenoma cannot be ruled out. MICROSCOPIC DESCRIPTION Slides are reviewed. GROSS DESCRIPTION A. Received in fixative is one container labeled with the patient's name and designated Terminal ileum biopsy. The specimen consists of three irregular fragments of light taveras soft tissue that measure 0.1 to 0.9 cm. The specimen is totally submitted in one cassette. B. Received in fixative is one container labeled with the patient's name and designated Random colonic polyp. The specimen consists of three irregular fragments of light taveras soft tissue that measure 0.3 to 0.4 cm. The specimen is totally submitted in one cassette. C. Received in fixative is one container labeled with the patient's name and designated Rectal polyp. The specimen consists of three irregular fragments of light taveras soft tissue that measure <0.1 to 0.1 cm. The entirety of the specimen may not survive processing. The specimen is totally submitted in one cassette. TX 02/14/2025 CPT:14692f8
--- NOTE | 2025-02-14 08:26 | HP.PCM_ITS ---
HPI - General General Date of Admission: 02/14/25 Date of Service: 02/14/25 Chief Complaint: diarrhea HPI Narrative RACHEL HUDSON, is a 74 F who presents regarding concerns for terrible diarrhea. She reports a history of constipation but describes daily BMs of firm stool. She denies any period of days between BMs. Her stools became liquid and pencil thin a little over a month ago, but maybe 4, she's not sure exactly. She reports having an increased amount of abdominal straining to have a BM and noted recent blood while cleaning herself. She states that she's only had 1 episode of bleeding straight from her rectum. She is experiencing an increased amount of flatulence and feels that she cannot safely release the air unless she's sitting on the toilet as she has had stool incontinence recently. She states that she has several first cousins, an aunt, and an uncle who have colon cancer; and a brother with esophageal cancer. She started taking a fiber supplement 2 days ago. 6. KUB No evidence of acute abdominal pathology. (Nonobstructive bowel gas pattern. Moderate stool burden without distention on my personal review of image.) 7 OV She reports that her BMs are better, more frequent with increased volume but still small pieces of formed stool. She states that she is taking Benefiber and Miralax together at bedtime. She rarely sees any blood in her stool as her hemorrhoids are healing. She complains of heartburn, excess gas and belching after every meal. She is asking if she can use Liquid IV drink supplement for electrolyte balance in water instead of a sports drink. Screening colonoscopy 02.14.25. COUNTS INCLUDE 234 BEDS AT THE [facility] Medical History Cancer Depression Thyroid disease Arthritis Fatty liver Easy bruising Syncope Seasonal allergies PONV (postoperative nausea and vomiting) Former smoker Leg cramps Cardiology follow-up encounter Diarrhea Carotid artery disease Carotid bruit Osteoporosis Pure hypercholesterolemia Ectopic atrial tachycardia Premature atrial contraction Premature ventricular contraction balloon sinusplasty Hyperlipidemia Paroxysmal tachycardia Tachycardia Palpitations FPC use of drug Iatrogenic hypothyroidism Home Medications ?Medication ?Instructions ?Recorded ?Last Taken ?Type rosuvastatin 20 mg tablet 20 mg PO QDAY 09/26/1702/13 History citalopram 20 mg tablet 20 mg PO QDAY 09/27/1702/13 History fluticasone propionate 50 2 spray intranasal QDAY PRN 08/12/21 02/12/25 History mcg/actuation nasal allergy symptoms spray,suspension (Flonase Allergy Relief) denosumab 60 mg/mL subcutaneous 60 mg subcut [id number] #1 mL 04/25/23 09/01/24 Rx syringe montelukast 10 mg tablet 10 mg PO DAILY 10/13/2302/01 History coQ10 (ubiquinol) 100 mg capsule 100 mg PO DAILY 12/2102/06/25 History (Qunol Donnell CoQ10) valacyclovir 500 mg tablet 500 mg PO Q12H PRN HERPES S KIN 12/21/24 Unknown History OUTBREAK levothyroxine 75 mcg tablet 75 mcg PO DAILY 02/12/25 0 02/14/25 History Allergy/AdvReac Type Severity Reaction Status Date / Time nitrofurantoin (From Allergy Hives Verified 02/14/25 07:42 Macrodantin) bupropion (From Wellbutrin) AdvReac Severe Unknown Verified 02/14/25 07:42 estrogens, conjugated (From AdvReac Severe Unknown Verified 02/14/25 07:42 Premarin) teriparatide (From Forteo) AdvReac Severe Unknown Verified 02/14/25 07:42 venlafaxine (From Effexor) AdvReac Severe Unknown Verified 02/14/25 07:42 Family History Father CAD (coronary artery disease) Mother Diabetes Heart disease Sister Hypertension HLD (hyperlipidemia) Myocardial infarction CAD (coronary artery disease) Surgical History History of reduction surgery of right breast History of colonoscopy History of basal cell carcinoma excision History of bilateral cataract extraction H/O arthroscopy of right knee exploratory lap History of total abdominal hysterectomy History of tonsillectomy and adenoidectomy History of lumpectomy of left breast Social History Smoking Status: Former smoker how long ago did patient quit smokin alcohol intake: never substance use type: does not use caffeine: Yes Type: coffee Number of servings: 4 and tea what type of physical activity do you participate in: none seatbelt use: always do you feel safe at home: Yes ROS Constitutional Constitutional: Denies fatigue, fever(s), poor appetite, weight gain or weight loss Gastrointestinal Gastrointestinal: Denies belching, bloating, change in bowel habits, change in stool character, chewing difficulty, coffee ground emesis, constipation, cramping, diarrhea, dyspepsia, dysphagia, early satiety, excessive flatus, fecal incontinence, heartburn, hematemesis, hematochezia, hemorrhoids, loose stools, melena, nausea, odynophagia, rectal bleeding, tenesmus, vomiting or weight changes Vital Signs Vital Signs Vital Signs: 02/14/25 07:44 02/14/25 07:44 02/14/25 08:21 Temperature 98.6 F 98.6 F Temperature Source Temporal Pulse Rate 78 78 Respiratory Rate 18 18 Respiratory Pattern Normal Blood Pressure 104/66 104/66 Blood Pressure Mean 78 Blood Pressure Source Monitor Blood Pressure Position Semi-Fowlers Blood Pressure Location Right Arm Pulse Ox 98 98 Oxygen Delivery Method Room Air Room Air Weight Weight: 139 lb 15.896 oz Body Mass Index (BMI) 21.9 Physical Exam Const alert, oriented x3, no apparent distress and healthy appearing General Appearance: cooperative GI normal to inspection, nondistended, normoactive bowel sounds, soft to palpation, non-tender and non-distended Percussion: normal to percussion Rectal Exam: deferred Assessment & Plan Assessment/Plan (1) Encounter for screening colonoscopy: (2) Overflow diarrhea: (3) Constipation: QUALIFIERS: Constipation type: slow transit constipation Qualified Code(s): K59.01 - Slow transit constipation PLAN: Assessment and Plan Assessment and Plan (1) Constipation: Status: Chronic Qualifiers: Constipation type: slow transit constipation Qualified Code(s): K59.01 - Slow transit constipation (2) Encounter for screening colonoscopy: Status: Acute Plan RACHEL HUDSON, is a 74 F who presents to the office today for FU. OV She reports that her BMs are better, more frequent with increased volume but still small pieces of formed stool. She states that she is taking Benefiber and Miralax together at bedtime. She rarely sees any blood in her stool as her hemorrhoids are healing. She complains of heartburn, excess gas and belching after every meal. She is asking if she can use Liquid IV drink supplement for electrolyte balance in water instead of a sports drink. Screening colonoscopy 8.14.25. I feel as if her stomach is being slowed down by the fiber supplement. I am con cerned that either the Liquid IV or the Miralax may not mix completely in the water for her bowel preparation. I encouraged her to find a premixed electrolyte sports drink to add the Miralax to. * split Benefiber dosing away from Miralax, take in AM * office FU 4wks after colonoscopy d/t delayed path reports
--- NOTE | 2025-02-14 09:07 | OP.PROVAT_ITS ---
02/14/2025 Rashel Lopez MD [address] [place] [address] Re : Colonoscopy procedure for Giselle Weir Dear Dr. Lopez This procedure was performed on February. My impressions and recommendations are as follows: Impressions : - One 9 mm polyp in the rectum, removed with a hot snare. Resected and retrieved. - Congested mucosa in the recto-sigmoid colon, in the sigmoid colon and in the ascending colon. Biopsied. - Diverticulosis in the recto-sigmoid colon, in the sigmoid colon and in the transverse colon. - Congested mucosa in the terminal ileum. - The examined portion of the ileum was normal. Biopsied. - Several biopsies were obtained. Recommendations : - Discharge patient to home. - Resume previous diet. - Continue present medications. - Await pathology results. - Repeat colonoscopy in 5 years for surveillance. My findings are described in the full procedure note, which is enclosed. If I can be of further assistance, please feel free to contact me at . Sincerely, Donald Urena, 02/14/2025 9:06:38 AM This report has been signed electronically.
--- NOTE | 2025-02-14 09:07 | OP.COLON_ITS ---
Patient Name: Giselle Weir Procedure Date: 02/14/2025 8:31 AM Date of : 1950 Age: 74 Procedure: Colonoscopy Indications: Clinically significant diarrhea of unexplained origin Providers: Donald Urena DO Referring MD: Rashel Lopez MD Medicines: Monitored Anesthesia Care Patient Profile: This is a 74 year old female. Refer to note in patient chart for documentation of history and physical. Last Colonoscopy: several years ago. Complications: No immediate complications. Procedure: Pre-Anesthesia Assessment: - Prior to the procedure, a History and Physical was performed, and patient medications and allergies were reviewed. The patient is competent. The risks and benefits of the procedure and the sedation options and risks were discussed with the patient. All questions were answered and informed consent was obtained. Patient identification and proposed procedure were verified by the physician in the pre-procedure area. Mental Status Examination: alert and oriented. Airway Examination: normal oropharyngeal airway and neck mobility. Respiratory Examination: clear to auscultation. CV Examination: normal. Prophylactic Antibiotics: The patient does not require prophylactic antibiotics. Prior Anticoagulants: The patient has taken no anticoagulant or antiplatelet agents except for NSAID medication. ASA Grade Assessment: II - A patient with mild systemic disease. After reviewing the risks and benefits, the patient was deemed in satisfactory condition to undergo the procedure. The anesthesia plan was to use monitored anesthesia care (MAC). Immediately prior to administration of medications, the patient was re-assessed for adequacy to receive sedatives. The heart rate, respiratory rate, oxygen saturations, blood pressure, adequacy of pulmonary ventilation, and response to care were monitored throughout the procedure. The physical status of the patient was re-assessed after the procedure. After I obtained informed consent, the scope was passed under direct vision. Throughout the procedure, the patient's blood pressure, pulse, and oxygen saturations were monitored continuously. The colonoscope was introduced through the anus and advanced to the terminal ileum. The colonoscopy was performed without difficulty. The patient tolerated the procedure well. The quality of the bowel preparation was adequate. The terminal ileum, ileocecal valve, appendiceal orifice, and rectum were photographed. Scope In: 8:40:23 AM Scope Withdrawal Time 0 hours 13 minutes 10 seconds Scope Out: 8:59:00 AM Total Procedure Duration Time 0 hours 18 minutes 37 seconds Findings: The perianal and digital rectal examinations were normal. A 9 mm polyp was found in the rectum. The polyp was sessile. The polyp was removed with a hot snare. Resection and retrieval were complete. Verification of patient identification for the specimen was done. Estimated blood loss was minimal. An area of mildly congested mucosa was found in the recto-sigmoid colon, in the sigmoid colon and in the ascending colon. Biopsies were taken with a cold forceps for histology. Verification of patient identification for the specimen was done. Estimated blood loss was minimal. Multiple small-mouthed diverticula were found in the recto-sigmoid colon, sigmoid colon and transverse colon. A localized area of the terminal ileum was congested. Several biopsies were obtained with cold forceps for histology randomly. Verification of patient identification for the specimen was done. Estimated blood loss was minimal. The terminal ileum appeared normal. Biopsies were taken with a cold forceps for histology. Verification of patient identification for the specimen was done. Estimated blood loss was minimal. Non-bleeding internal hemorrhoids were found during retroflexion. The hemorrhoids were Grade III (internal hemorrhoids that prolapse but require manual reduction). Impression: - One 9 mm polyp in the rectum, removed with a hot snare. Resected and retrieved. - Congested mucosa in the recto-sigmoid colon, in the sigmoid colon and in the ascending colon. Biopsied. - Diverticulosis in the recto-sigmoid colon, in the sigmoid colon and in the transverse colon. - Congested mucosa in the terminal ileum. - The examined portion of the ileum was normal. Biopsied. - Several biopsies were obtained. Recommendation: - Discharge patient to home. - Resume previous diet. - Continue present medications. - Await pathology results. - Repeat colonoscopy in 5 years for surveillance. Procedure Code(s): --- Professional --- 06317, Colonoscopy, flexible; with removal of tumor(s), polyp(s), or other lesion(s) by snare technique 25537, 59, Colonoscopy, flexible; with biopsy, single or multiple CPT copyright 2021 [employer]. All rights reserved. The codes documented in this report are preliminary and upon digital engineer review may be revised to meet current compliance requirements. Donald Urena DO 02/14/2025 9:06:38 AM This report has been signed electronically. Number of Addenda: 0 Note Initiated On: 02/14/2025 8:31 AM
--- NOTE | 2025-02-14 09:15 | PCM.POST.ANE ---
Anesthesia: Postop Eval I Current Vital Signs Temperature: 97.3 F Pulse Rate: 74 Blood Pressure: 100/46 Respiratory Rate: 16 Pulse Ox: 100 Oxygen Delivery Method: Room Air Assessment Airway patent: Yes Spontaneous unlabored respirations: Yes Mental status: Awake and Calm nausea: No Vomiting: No Anesthesia Complication: No Fluid Hydration Crystalloid volume administer (ml): 1,000 Total IV fluid infused: 1,000 Progress Note Anesthesia document: Postop Eval 1 completed: Yes
== END 2025-02-14 09:41 | disposition home or self-care (01) ==
LOC: EN 07:05 → AC 07:05
PROVIDERS: PCP Family Medicine Geriatric Medicine; Referring Provider Family Medicine Geriatric Medicine; Visit Provider Internal Medicine Gastroenterology
PROC: 0DJD8ZZ Inspection of Lower Intestinal Tract, Via Natural or Artificial Opening Endoscopic (ICD-10-PCS; CPT 45378; principal; 2025-02-14 08:10)
DX: Z12.11 Encounter for screening for malignant neoplasm of colon (principal); K57.30 Diverticulosis of large intestine without perforation or abscess without bleeding; K59.01 Slow transit constipation; K64.2 Third degree hemorrhoids; E78.00 Pure hypercholesterolemia, unspecified; K62.1 Rectal polyp; Z87.891 Personal history of nicotine dependence; Z79.899 Other long term (current) drug therapy; Z79.890 Hormone replacement therapy
CPT/HCPCS: 45380; 45385; 88305; J2405

== ENCOUNTER → 2025-06-13 | Outpatient (CLI) | payer MEDICARE, SELFPAY ==
[2025-06-13 09:58] LABS: Hematocrit 39.5 % (37-47); Hemoglobin 13.5 g/dL (12.0-15.0); Immature Granulocytes Count 0.010 X10^3/uL (0.0-0.0); Mean Corp Hgb Conc 34.2 g/dL (32-36); Mean Corpuscular Volume 93.8 fL (81-99); Mean Platelet Vol. 8.4 fl (6.2-12.0); NRBC Flagged by Analyzer 0 % (0-5); Platelet Count 269 K/mm3 (150-450); RBC Distribution Width CV 13.4 % (11.6-14.6); RBC Distribution Width SD 45.5 fl (35.1-43.9); Red Blood Count 4.21 M/mm3 (4.2-5.4); White Blood Count 5.8 K/mm3 (4.4-11.0)
[2025-06-13 10:41] LABS: AST(SGOT) 37 U/L (<=31); Alanine Aminotransfer ALT/SGPT 35 U/L (<=34); Albumin, Serum 4.5 g/dL (3.4-4.8); Alkaline Phosphatase 47 U/L (35-104); Anion Gap 12 (5-15); BUN 10 mg/dL (4-19); BUN/Creat Ratio 12.4 RATIO (10-20); Calcium,Total 9.2 mg/dL (7.6-11.0); Carbon Dioxide 23.5 mmol/L (21.0-32.0); Chloride 99 mmol/L (98-108); Globulin 2.5 g/dL (2.2-4.2); Glucose 107 mg/dL (70-99); Potassium 4.4 mmol/L (3.3-5.1)
[2025-06-13 10:46] LABS: Vitamin D,25 Hydroxy 51.7 ng/mL (30-100)
[2025-06-13 17:41] LABS: Xtra Tube Kwok EXTRA TUBE
== END | disposition home or self-care (01) ==
LOC: POLAB3 09:39
PROVIDERS: PCP Family Medicine Geriatric Medicine; Visit Provider Family Medicine Geriatric Medicine
DX: E03.9 Hypothyroidism, unspecified (principal); R53.83 Other fatigue; E55.9 Vitamin D deficiency, unspecified
CPT/HCPCS: 36415; 80053; 82306; 84443; 85025